=== PATIENT | male | born 1930 | race Caucasian/White ===

== ENCOUNTER 2016-09-27 16:24 | Emergency (ER) | payer MEDICARE ==
[2016-09-27] MEDS ORDERED: SODIUM CHLORIDE 0.9% 1,000 ML IV ONE (17:15)
[2016-09-27] MEDS ORDERED: ACETAMINOPHEN IV (For NPO) 1,000 MG in EMPTY BAG 1 BAG IVPB ONE (17:16)
[2016-09-27 17:44] LABS: Anisocytosis Slight; Appearance,Urine Clear (Clear); Basophils % (A) 0 %; Bilirubin,Urine Negative (Negative); CHCM 32.1; Eosinophils % (A) 0 %; Glucose,Urine (UA) Negative (Negative); HCT 40.4 % (39.0-53.0); HDW 2.72; HGB 12.3 gm/dL (13.0-17.5); Ketones,Urine Negative (Negative); Leukocyte Esterase,Urine Negative (Negative); Luc # (Auto) 0.02; Luc % (Auto) 0; Lymphocytes # (A) 0.4 k/uL (1.0-4.8); Lymphocytes % (A) 3 %; MCH 26.8 pg (25.0-35.0); MCHC 30.5 g/dL (31.0-37.0); MCV 87.7 fL (80.0-100.0); Mean Platelet Volume 7.1; Monocytes # (A) 0.3 k/uL (0-1.0); Monocytes % (A) 2 %; Neutrophils # (A) 10.7 k/uL (1.3-7.7); Neutrophils % (A) 94 %; Nitrite,Urine Negative (Negative); Protein,Urine Negative (Negative); RBC 4.61 m/uL (4.30-5.90); RDW 16.2 % (11.5-15.5); Specific Gravity,Urine 1.003 (1.001-1.035); UA Billing (MACRO vs. MICRO) CHEM; Urobilinogen,Urine <2.0 mg/dL (<2.0); WBC 11.4 k/uL (3.8-10.6); WBC (Perox) 11.84
[2016-09-27 17:53] LABS: ALT 34 U/L (21-72); AST 25 U/L (17-59); Alkaline Phosphatase 134 U/L (38-126); Anion Gap 13 mmol/L; Blood Urea Nitrogen 22 mg/dL (9-20); Calcium 9.6 mg/dL (8.4-10.2); Carbon Dioxide 27 mmol/L (22-30); Chloride 99 mmol/L (98-107); Glucose 127 mg/dL (74-99); Non-African American GFR(MDRD) >60 (>60 ml/min/1.73 sqM); Sodium 139 mmol/L (137-145); Total Bilirubin 0.5 mg/dL (0.2-1.3); Total Protein 7.5 g/dL (6.3-8.2)
[2016-09-27 17:55] LABS: Partial Thromboplastin Time 24.3 sec (22.0-30.0); Prothrombin Time 10.2 sec (9.0-12.0)
--- NOTE | 2016-09-27 18:11 | XR ---
EXAMINATION TYPE: XR chest 2V DATE OF EXAM: 09/27/2016 6:08 PM COMPARISON: 08/28/2016 HISTORY: Altered mental status TECHNIQUE: Frontal and lateral views of the chest are obtained. FINDINGS: There is slight blunting of costophrenic angles. There is coarsening of interstitial bibiana ngs. Heart size is normal. There are no hilar masses. There are chest leads. There is no gross heart failure. IMPRESSION: There is new small right pleural effusion compared to last exam. No gross heart failure. Pulmonary fibrotic changes. There is probably COPD.
--- NOTE | 2016-09-27 18:15 | CT ---
EXAMINATION TYPE: CT brain cspine wo con DATE OF EXAM: 09/27/2016 6:08 PM COMPARISON: 08/28/2016 HISTORY: Pt states of headaches and dizziness. Hx of [place] x2 weeks ago. CT DLP: 1304.7 mGycm Automated exposure control for dose reduction was used. TECHNIQUE: CT scan of the head and cervical spine are performed without contrast. FINDINGS: There is cerebral cortical atrophy. There is moderate patchy hypodensity in the periventr icular white matter. There is no mass effect nor midline shift. There is no evidence of intracranial hemorrhage. The calvarium is intact. The cervical vertebra have normal alignment. There is degenerative disc space narrowing from C4 to C7 with spurring of the endplates. There is hypertrophic mild facet arthropathy. There is no compressio n fracture. Skull base is intact. IMPRESSION: Cerebral atrophy and extensive chronic small vessel ischemia. Spondylotic changes in the mid and lowe r cervical spine. No fracture. The brain and cervical spine appear unchanged compared to old exam.
[2016-09-27 18:25] VITALS: RESP 18
[2016-09-27 18:26] LABS: Creatine Kinase MB 2.1 ng/mL (0.0-2.4); Troponin I 0.012 ng/mL (0.000-0.034)
--- NOTE | 2016-09-27 19:58 | ED ---
General Adult HPI - General Chief complaint: Altered Mental Status Stated complaint: headache/nausea/confusion Time Seen by Provider: 09/27/16 17:08 Source: patient, family Mode of arrival: wheelchair - History of Present Illness Initial comments: This 85-year-old white male presents with family with several complaints. He apparently is been having a headache as well as neck pain for the past 6 weeks. He had a workup in this regard in the past with the CAT scan and this showed some degenerative changes in his neck. He states that it is fairly severe. The states that he's been somewhat panicky throughout the day but he states that this is only after he takes his breathing treatment machine. She states that he seems confused at times but is not confused currently. He just had a stress test yesterday and is following up with cardiology on Friday. She states that he had problems swallowing at one point in time. They deny any urinary symptoms or cough or difficulty in breathing. No other complaints or modifying factors. - Related Data Home Medications Medication Instructions Recorded Confirmed Tamsulosin HCl [Flomax] 0.4 mg PO DAILY 04/05/16 09/27/16 Budesonide [Pulmicort] 0.5 mg INHALATION RT-BID PRN 09/27/16 09/27/16 HYDROcodone/APAP 7.5-325MG [[place] 1 tab PO Q4H PRN 09/27/16 09/27/16 7.5-325] Sulfamethox-Tmp 800-160Mg [Bactrim 1 tab PO Q12HR 09/27/16 09/27/16 DS 800-160 mg] predniSONE See Taper PO DAILY 09/27/16 09/27/16 Previous Rx's Medication Instructions Recorded Atorvastatin [Lipitor] 40 mg PO DAILY #90 tab 08/31/16 Clopidogrel [Plavix] 75 mg PO DAILY #90 tab 08/31/16 amLODIPine [Norvasc] 5 mg PO DAILY #90 tab 08/31/16 Allergies Allergy/AdvReac Type Severity Reaction Status Date / Time ciprofloxacin [From Cipro] Allergy Mild Hives Verified 09/27/16 18:12 ciprofloxacin HCl Allergy Mild Hives Verified 09/27/16 18:12 [From Cipro] acetic acid Allergy Rash/Hives Verified 09/27/16 18:12 [From [place] Vinegar and Water] egg Allergy Unknown Verified 09/27/16 18:12 tomato Allergy Rash/Hives Verified 09/27/16 18:12 methylprednisolone AdvReac Severe Abdominal Verified 09/27/16 18:12 [From Medrol] Pain Review of Systems ROS Statement: Those systems with pertinent positive or pertinent negative responses have been documented in the HPI. ROS Other: All systems not noted in ROS Statement are negative. Past Medical History Past Medical History: Coronary Artery Disease (CAD), COPD, CVA/TIA, Dementia, Eye Disorder, Hypertension, Myocardial Infarction ([place]), Pneumonia, Prostate Disorder Additional Past Medical History / Comment(s): Recent UTI-completed ABX, several TIAs, CVA- R leg affected alittle, BPH, glaucoma-one wet and one dry, pancreatitis, unsteady on his feet, allergies that cause his skin to itch- vinegar/tomatoes/dairy, very limited vision. Last Myocardial Infarction Date:: March 2014 History of Any Multi-Drug Resistant Organisms: None Reported Past Surgical History: Appendectomy, Cholecystectomy, Heart Catheterization With Stent Additional Past Surgical History / Comment(s): 03/2014 PCI with 1 stent, left carotid, cataract surgery, deviated septum sx, cataracts removed bilaterally with lens implants, colonoscopy with benign polypectomy, L eye injectionl Past Anesthesia/Blood Transfusion Reactions: No Reported Reaction Date of Last Stent Placement:: 03/2014 Past Psychological History: Anxiety Additional Psychological History / Comment(s): Pt resides with his spouse. He uses no assistive device. He has an unsteady gait and has had falls. He has very poor vision. His assists him with many things. Smoking Status: Former smoker Past Alcohol Use History: None Reported Additional Past Alcohol Use History / Comment(s): Pt states he started smoking at age 14 yrs and quit in 2012. He was mostly a pipe smoker and did smoke cigarettes the last few yrs that he smoked. Past Drug Use History: None Reported - Past Family History Mother Family Medical History: Congestive Heart Failure (CHF), Myocardial Infarction ( [place]) Additional Family Medical History / Comment(s): Mother at 94 yrs. Father Family Medical History: Myocardial Infarction ([place]) Additional Family Medical History / Comment(s): of [place] in his 60's General Exam - General Exam Comments Initial Comments: GENERAL: The patient is well nourished and well hydrated. VITAL SIGNS: Heart rate, blood pressure, respiratory rate reviewed as recorded in nurse's notes. EYES: Pupils are round and reactive. Extraocular movements are intact. No conjunctival / lid redness or swelling. ENT: No external evidence of injury, swelling, or ecchymosis. Airway is patent. Throat is clear. NECK: There is some slight tenderness in the bilateral paraspinal musculature. No swelling or evidence of injury. No subcutaneous emphysema. Trachea is midline. No thyroid mass. HEART: Regular rate and rhythm. Good peripheral pulses. LUNGS/CHEST: Breath sounds clear and equal bilaterally. No rales, rhonchi, or wheezes. No ecchymosis, subcutaneous emphysema, or tenderness. ABDOMEN: Abdomen soft without tenderness. No palpable masses or organomegaly. No peritoneal signs. No abdominal wall swelling or ecchymosis. EXTREMITIES: No extremity tenderness. Normal muscle tone and function. No thoracolumbar tenderness. There is minimal lower extremity pitting edema which is apparently chronic. NEUROLOGIC: Sensation is grossly intact. Cranial nerve exam reveals face is symmetrical, tongue is midline, speech is clear. SKIN: No abrasions or ecchymosis is noted. No induration or masses noted. PSYCHIATRIC: Alert and oriented. Appropriate behavior and judgment. Course Vital Signs 09/27/16 09/27/16 09/27/16 16:36 18:23 19:09 Temperature 100.1 F H Pulse Rate 82 80 82 Respiratory 20 18 18 Rate Blood Pressure 152/70 150/73 121/84 O2 Sat by Pulse 91 L 93 L 94 L Oximetry Medical Decision Making - Medical Decision Making The patient was seen and examined. All diagnostics were reviewed. The EKG shows sinus tachycardia at a rate of [address]-T wave changes noted. An IV was started. He received some Ofirmev with significant improvement of his pain. A computed tomography scan of the brain is negative. The computed tomography scan of the neck shows degenerative/arthritic changes per radiology with no acute processes. The chest x-ray does not show any acute process with possible slight right pleural effusion per radiology. Laboratory and urinalysis were fairly unremarkable. States that he is feeling much better on recheck and would like to be discharged. He has an upcoming appointment with neurology in regards to his headache. Is felt as though that he is stable for discharge at this time and leaves in no significant distress. - Lab Data Result diagrams: 09/27/16 17:10 09/27/16 17:10 Lab Results 09/27/16 09/27/16 09/27/16 Range/Units 17:10 17:10 17:10 WBC 11.4 H (3.8-10.6) k/uL RBC 4.61 (4.30-5.90) m/uL Hgb 12.3 L (13.0-17.5) gm/dL Hct 40.4 (39.0-53.0) % MCV 87.7 (80.0-100.0) fL MCH 26.8 (25.0-35.0) pg MCHC 30.5 L (31.0-37.0) g/dL RDW 16.2 H (11.5-15.5) % Plt Count 331 (150-450) k/uL Neutrophils % 94 % Lymphocytes % 3 % Monocytes % 2 % Eosinophils % 0 % Basophils % 0 % Neutrophils # 10.7 H (1.3-7.7) k/uL Lymphocytes # 0.4 L (1.0-4.8) k/uL Monocytes # 0.3 (0-1.0) k/uL Eosinophils # 0.0 (0-0.7) k/uL Basophils # 0.0 (0-0.2) k/uL Anisocytosis Slight PT (9.0-12.0) sec INR (<1.1) APTT (22.0-30.0) sec Sodium 139 (137-145) mmol/L Potassium 5.0 (3.5-5.1) mmol/L Chloride 99 (98-107) mmol/L Carbon Dioxide 27 (22-30) mmol/L Anion Gap 13 mmol/L BUN 22 H (9-20) mg/dL Creatinine 1.09 (0.66-1.25) mg/dL Est GFR (MDRD) Af Amer >60 (>60 ml/min/1.73 sqM) Est GFR (MDRD) Non-Af >60 (>60 ml/min/1.73 sqM) Glucose 127 H (74-99) mg/dL Calcium 9.6 (8.4-10.2) mg/dL Total Bilirubin 0.5 (0.2-1.3) mg/dL AST 25 (17-59) U/L ALT 34 (21-72) U/L Alkaline Phosphatase 134 H (38-126) U/L Total Creatine Kinase 39 L (55-170) U/L CK-MB (CK-2) 2.1 (0.0-2.4) ng/mL CK-MB (CK-2) Rel Index 5.4 Troponin I 0.012 (0.000-0.034) ng/mL Total Protein 7.5 (6.3-8.2) g/dL Albumin 4.2 (3.5-5.0) g/dL Urine Color Urine Appearance (Clear) Urine pH (5.0-8.0) Ur Specific [place] (1.001-1.035) Urine Protein (Negative) Urine Glucose (UA) (Negative) Urine Ketones (Negative) Urine Blood (Negative) Urine Nitrate (Negative) Urine Bilirubin (Negative) Urine Urobilinogen (<2.0) mg/dL Ur Leukocyte Esterase (Negative) 09/27/16 09/27/16 Range/Units 17:10 17:10 WBC (3.8-10.6) k/uL RBC (4.30-5.90) m/uL Hgb (13.0-17.5) gm/dL Hct (39.0-53.0) % MCV (80.0-100.0) fL MCH (25.0-35.0) pg MCHC (31.0-37.0) g/dL RDW (11.5-15.5) % Plt Count (150-450) k/uL Neutrophils % % Lymphocytes % % Monocytes % % Eosinophils % % Basophils % % Neutrophils # (1.3-7.7) k/uL Lymphocytes # (1.0-4.8) k/uL Monocytes # (0-1.0) k/uL Eosinophils # (0-0.7) k/uL Basophils # (0-0.2) k/uL Anisocytosis PT 10.2 (9.0-12.0) sec INR 1.0 (<1.1) APTT 24.3 (22.0-30.0) sec Sodium (137-145) mmol/L Potassium (3.5-5.1) mmol/L Chloride (98-107) mmol/L Carbon Dioxide (22-30) mmol/L Anion Gap mmol/L BUN (9-20) mg/dL Creatinine (0.66-1.25) mg/dL Est GFR (MDRD) Af Amer (>60 ml/min/1.73 sqM) Est GFR (MDRD) Non-Af (>60 ml/min/1.73 sqM) Glucose (74-99) mg/dL Calcium (8.4-10.2) mg/dL Total Bilirubin (0.2-1.3) mg/dL AST (17-59) U/L ALT (21-72) U/L Alkaline Phosphatase (38-126) U/L Total Creatine Kinase (55-170) U/L CK-MB (CK-2) (0.0-2.4) ng/mL CK-MB (CK-2) Rel Index Troponin I (0.000-0.034) ng/mL Total Protein (6.3-8.2) g/dL Albumin (3.5-5.0) g/dL Urine Color Colorless Urine Appearance Clear (Clear) Urine pH 6.0 (5.0-8.0) Ur Specific [place] 1.003 (1.001-1.035) Urine Protein Negative (Negative) Urine Glucose (UA) Negative (Negative) Urine Ketones Negative (Negative) Urine Blood Negative (Negative) Urine Nitrate Negative (Negative) Urine Bilirubin Negative (Negative) Urine Urobilinogen <2.0 (<2.0) mg/dL Ur Leukocyte Esterase Negative (Negative) Disposition Clinical Impression: Headache, Neck pain, Degenerative arthritis Disposition: HOME SELF-CARE Condition: Good Instructions: Acute Headache (ED), Neck Pain (ED), Arthritis (ED) Additional Instructions: Please continue with home [place] as needed for pain. Referrals: Dante Fraser DO [Primary Care Provider] - 1-2 days Time of Disposition: 20:01
[2016-09-27 20:33] VITALS: BP 156/68; PULSE 80; TEMP 97.6
== END 2016-09-27 20:16 | disposition home or self-care (01) ==
LOC: EC 16:24
DX: R51 Headache (principal); M50.320 Other cervical disc degeneration, mid-cervical region, unspecified level; J90 Pleural effusion, not elsewhere classified; G31.9 Degenerative disease of nervous system, unspecified; I10 Essential (primary) hypertension; F03.90 Unspecified dementia, unspecified severity, without behavioral disturbance, psychotic disturbance, mood disturbance, and anxiety; J44.9 Chronic obstructive pulmonary disease, unspecified; I25.10 Atherosclerotic heart disease of native coronary artery without angina pectoris; N40.0 Benign prostatic hyperplasia without lower urinary tract symptoms; I25.2 Old myocardial infarction; Z86.73 Personal history of transient ischemic attack (TIA), and cerebral infarction without residual deficits; Z95.5 Presence of coronary angioplasty implant and graft; Z87.891 Personal history of nicotine dependence; Z79.02 Long term (current) use of antithrombotics/antiplatelets; Z79.899 Other long term (current) drug therapy; Z88.1 Allergy status to other antibiotic agents; Z88.8 Allergy status to other drugs, medicaments and biological substances
CPT/HCPCS: 99284; 96361; 36415; 93005; 80053; 82550; 82553; 84484; 85025; 85610; 85730; 81003; 87040; 87086; 71020; 72125; 70450; 96374; J0131

== ENCOUNTER 2016-10-16 22:37 | Inpatient (IN) | payer MEDICARE ==
[2016-10-16] MEDS ORDERED: SODIUM CHLORIDE 0.9% 1,000 ML IV STA (22:45)
[2016-10-16] MEDS ORDERED: IPRATROPIUM-ALBUTEROL 3 ML NEB INHALATION STA (22:45)
--- NOTE | 2016-10-16 22:49 | ED ---
SOB HPI - General Stated Complaint: LORENA Time Seen by Provider: 10/16/16 22:37 Source: patient, EMS, RN notes reviewed Mode of arrival: EMS - History of Present Illness Initial Comments: This is a 5-year-old male was brought in by EMS because of shortness of breath is been going on off last day or so. He has a cough with yellow phlegm also some green the extent felt febrile no chest pain exertional dyspnea. He was recently diagnosed with [place] on the of this past August. No chest pain at this time. He was given a DuoNeb as well as IV steroids in route. MD Complaint: shortness of breath, cough - Related Data Home Medications Medication Instructions Recorded Confirmed Tamsulosin HCl [Flomax] 0.4 mg PO DAILY 04/05/16 10/16/16 Budesonide [Pulmicort] 0.5 mg INHALATION RT-BID PRN 09/27/16 10/16/16 HYDROcodone/APAP 7.5-325MG [[place] 1 tab PO Q4H PRN 09/27/16 10/16/16 7.5-325] Previous Rx's Medication Instructions Recorded Atorvastatin [Lipitor] 40 mg PO DAILY #90 tab 08/31/16 Clopidogrel [Plavix] 75 mg PO DAILY #90 tab 08/31/16 amLODIPine [Norvasc] 5 mg PO DAILY #90 tab 08/31/16 Allergies Allergy/AdvReac Type Severity Reaction Status Date / Time ciprofloxacin [From Cipro] Allergy Mild Hives Verified 10/16/16 23:13 ciprofloxacin HCl Allergy Mild Hives Verified 10/16/16 23:13 [From Cipro] acetic acid Allergy Rash/Hives Verified 09/27/16 18:12 [From [place] Vinegar and Water] egg Allergy Unknown Verified 09/27/16 18:12 tomato Allergy Rash/Hives Verified 09/27/16 18:12 methylprednisolone AdvReac Severe Abdominal Verified 10/16/16 23:13 [From Medrol] Pain Review of Systems ROS Statement: Those systems with pertinent positive or pertinent negative responses have been documented in the HPI. ROS Other: All systems not noted in ROS Statement are negative. Past Medical History Past Medical History: Coronary Artery Disease (CAD), COPD, CVA/TIA, Dementia, Eye Disorder, Hypertension, Myocardial Infarction ([place]), Pneumonia, Prostate Disorder Additional Past Medical History / Comment(s): Recent UTI-completed ABX, several TIAs, CVA- R leg affected alittle, BPH, glaucoma-one wet and one dry, pancreatitis, unsteady on his feet, allergies that cause his skin to itch- vinegar/tomatoes/dairy, very limited vision. Last Myocardial Infarction Date:: March 2014 History of Any Multi-Drug Resistant Organisms: None Reported Past Surgical History: Appendectomy, Cholecystectomy, Heart Catheterization With Stent Additional Past Surgical History / Comment(s): 03/2014 PCI with 1 stent, left carotid, cataract surgery, deviated septum sx, cataracts removed bilaterally with lens implants, colonoscopy with benign polypectomy, L eye injectionl Past Anesthesia/Blood Transfusion Reactions: No Reported Reaction Date of Last Stent Placement:: 03/2014 Past Psychological History: Anxiety Additional Psychological History / Comment(s): Pt resides with his spouse. He uses no assistive device. He has an unsteady gait and has had falls. He has very poor vision. His assists him with many things. Smoking Status: Former smoker Past Alcohol Use History: None Reported Additional Past Alcohol Use History / Comment(s): Pt states he started smoking at age 14 yrs and quit in 2012. He was mostly a pipe smoker and did smoke cigarettes the last few yrs that he smoked. Past Drug Use History: None Reported - Past Family History Mother Family Medical History: Congestive Heart Failure (CHF), Myocardial Infarction ( [place]) Additional Family Medical History / Comment(s): Mother at 94 yrs. Father Family Medical History: Myocardial Infarction ([place]) Additional Family Medical History / Comment(s): of [place] in his 60's General Exam - General Exam Comments Initial Comments: Is a well-developed well-nourished awake alert anxious appearing male he is demonstrating dyspnea General appearance: alert, in no apparent distress Head exam: Present: atraumatic, normocephalic, normal inspection Eye exam: Present: normal appearance, PERRL, EOMI. Absent: scleral icterus, conjunctival injection, periorbital swelling ENT exam: Present: mucous membranes dry Neck exam: Present: normal inspection. Absent: tenderness, meningismus, lymphadenopathy Respiratory exam: Present: wheezes, accessory muscle use, decreased breath sounds, prolonged expiratory. Absent: respiratory distress, rales, rhonchi, stridor Cardiovascular Exam: Present: normal rhythm, tachycardia, normal heart sounds. Absent: systolic murmur, diastolic murmur, rubs, gallop, clicks GI/Abdominal exam: Present: soft, normal bowel sounds. Absent: distended, tenderness, guarding, rebound, rigid Extremities exam: Present: normal inspection, full ROM, normal capillary refill. Absent: tenderness, pedal edema, joint swelling, calf tenderness Back exam: Present: normal inspection Neurological exam: Present: alert, oriented X3, CN II-XII intact Psychiatric exam: Present: normal affect, normal mood Skin exam: Present: warm, dry, intact, normal color. Absent: rash Course Vital Signs 10/16/16 10/16/16 10/16/16 22:40 23:08 23:20 Temperature 100.7 F H Pulse Rate 121 H 99 101 H Respiratory 22 Rate Blood Pressure 201/84 O2 Sat by Pulse 90 L Oximetry - Reevaluation(s) Reevaluation #1: 10/17/16 00:00 Patient is feeling somewhat better did a long discussion with patient family patient will be admitted he is got bilateral pneumonia. Medical Decision Making - Lab Data Result diagrams: 10/16/16 20:50 10/16/16 20:50 Lab Results 10/16/16 10/16/16 10/16/16 Range/Units 20:50 20:50 20:50 WBC 22.3 H (3.8-10.6) k/uL RBC 4.69 (4.30-5.90) m/uL Hgb 12.4 L (13.0-17.5) gm/dL Hct 42.0 (39.0-53.0) % MCV 89.7 (80.0-100.0) fL MCH 26.6 (25.0-35.0) pg MCHC 29.6 L (31.0-37.0) g/dL RDW 16.1 H (11.5-15.5) % Plt Count 416 (150-450) k/uL Neutrophils % 77 % Lymphocytes % 14 % Monocytes % 6 % Eosinophils % 1 % Basophils % 1 % Neutrophils # 17.1 H (1.3-7.7) k/uL Lymphocytes # 3.1 (1.0-4.8) k/uL Monocytes # 1.4 H (0-1.0) k/uL Eosinophils # 0.2 (0-0.7) k/uL Basophils # 0.1 (0-0.2) k/uL Hypochromasia Slight Anisocytosis Slight PT (9.0-12.0) sec INR (<1.1) APTT (22.0-30.0) sec Sodium 142 (137-145) mmol/L Potassium 4.2 (3.5-5.1) mmol/L Chloride 103 (98-107) mmol/L Carbon Dioxide 25 (22-30) mmol/L Anion Gap 14 mmol/L BUN 22 H (9-20) mg/dL Creatinine 1.00 (0.66-1.25) mg/dL Est GFR (MDRD) Af Amer >60 (>60 ml/min/1.73 sqM) Est GFR (MDRD) Non-Af >60 (>60 ml/min/1.73 sqM) Glucose 107 H (74-99) mg/dL Plasma Lactic Acid Alonso (0.7-2.0) mmol/L Calcium 8.8 (8.4-10.2) mg/dL Magnesium 1.8 (1.6-2.3) mg/dL Total Bilirubin 0.6 (0.2-1.3) mg/dL AST 19 (17-59) U/L ALT 26 (21-72) U/L Alkaline Phosphatase 112 (38-126) U/L Total Creatine Kinase 30 L (55-170) U/L CK-MB (CK-2) 1.5 (0.0-2.4) ng/mL CK-MB (CK-2) Rel Index 5.0 Troponin I <0.012 (0.000-0.034) ng/mL NT-Pro-B Natriuret Pep pg/mL Total Protein 6.9 (6.3-8.2) g/dL Albumin 3.6 (3.5-5.0) g/dL 10/16/16 10/16/16 10/16/16 Range/Units 20:50 20:50 20:50 WBC (3.8-10.6) k/uL RBC (4.30-5.90) m/uL Hgb (13.0-17.5) gm/dL Hct (39.0-53.0) % MCV (80.0-100.0) fL MCH (25.0-35.0) pg MCHC (31.0-37.0) g/dL RDW (11.5-15.5) % Plt Count (150-450) k/uL Neutrophils % % Lymphocytes % % Monocytes % % Eosinophils % % Basophils % % Neutrophils # (1.3-7.7) k/uL Lymphocytes # (1.0-4.8) k/uL Monocytes # (0-1.0) k/uL Eosinophils # (0-0.7) k/uL Basophils # (0-0.2) k/uL Hypochromasia Anisocytosis PT 10.8 (9.0-12.0) sec INR 1.1 (<1.1) APTT 24.5 (22.0-30.0) sec Sodium (137-145) mmol/L Potassium (3.5-5.1) mmol/L Chloride (98-107) mmol/L Carbon Dioxide (22-30) mmol/L Anion Gap mmol/L BUN (9-20) mg/dL Creatinine (0.66-1.25) mg/dL Est GFR (MDRD) Af Amer (>60 ml/min/1.73 sqM) Est GFR (MDRD) Non-Af (>60 ml/min/1.73 sqM) Glucose (74-99) mg/dL Plasma Lactic Acid Alonso 2.3 H* (0.7-2.0) mmol/L Calcium (8.4-10.2) mg/dL Magnesium (1.6-2.3) mg/dL Total Bilirubin (0.2-1.3) mg/dL AST (17-59) U/L ALT (21-72) U/L Alkaline Phosphatase (38-126) U/L Total Creatine Kinase (55-170) U/L CK-MB (CK-2) (0.0-2.4) ng/mL CK-MB (CK-2) Rel Index Troponin I (0.000-0.034) ng/mL NT-Pro-B Natriuret Pep 557 pg/mL Total Protein (6.3-8.2) g/dL Albumin (3.5-5.0) g/dL - EKG Data -: EKG Interpreted by Wi EKG shows normal: sinus rhythm (Sinus tachycardia rate 117 NJ interval 196 QRS duration 76 daily since QTC at 290/[address] configuration occasional PVCs.) - Radiology Data Radiology results: report reviewed (Bilateral infiltrates are noted.), image reviewed Critical Care Time Critical Care Time: Yes Critical Care Time: 38 minutes of critical care time which includes the initial monitoring of the EMS run and discussed with paramedics. History physical lab and x-ray evaluation the patient reevaluation the patient to responsive therapy. Several reevaluation of the patient's progress with responsive therapy discussed with the family and patient regarding the findings admission orders discussion with the disposition and documentation the above. Disposition Clinical Impression: Bilateral pneumonia, Adult respiratory distress syndrome, Acute exacerbation of chronic obstructive airways disease, Febrile illness, acute, Dehydration, Elevated lactic acid level Disposition: ADMITTED IP TO THIS HOSP Condition: Stable Referrals: Dante Fraser DO [Primary Care Provider] - 1-2 days
[2016-10-16 23:03] LABS: Anisocytosis Slight; Basophils # (A) 0.1 k/uL (0-0.2); Basophils % (A) 1 %; CH 27.9; CHCM 31.3; Eosinophils # (A) 0.2 k/uL (0-0.7); Eosinophils % (A) 1 %; HDW 2.82; HGB 12.4 gm/dL (13.0-17.5); Hypochromasia Slight; Luc # (Auto) 0.42; Luc % (Auto) 2; Lymphocytes # (A) 3.1 k/uL (1.0-4.8); Lymphocytes % (A) 14 %; MCH 26.6 pg (25.0-35.0); MCHC 29.6 g/dL (31.0-37.0); MCV 89.7 fL (80.0-100.0); Mean Platelet Volume 7.2; Monocytes # (A) 1.4 k/uL (0-1.0); Monocytes % (A) 6 %; Neutrophils # (A) 17.1 k/uL (1.3-7.7); Neutrophils % (A) 77 %; RBC 4.69 m/uL (4.30-5.90); RDW 16.1 % (11.5-15.5); WBC 22.3 k/uL (3.8-10.6); WBC (Perox) 22.62
[2016-10-16 23:13] LABS: ALT 26 U/L (21-72); AST 19 U/L (17-59); Alkaline Phosphatase 112 U/L (38-126); Anion Gap 14 mmol/L; Blood Urea Nitrogen 22 mg/dL (9-20); Calcium 8.8 mg/dL (8.4-10.2); Carbon Dioxide 25 mmol/L (22-30); Chloride 103 mmol/L (98-107); Glucose 107 mg/dL (74-99); INR 1.1 (<1.1); Magnesium 1.8 mg/dL (1.6-2.3); Non-African American GFR(MDRD) >60 (>60 ml/min/1.73 sqM); Partial Thromboplastin Time 24.5 sec (22.0-30.0); Potassium 4.2 mmol/L (3.5-5.1); Prothrombin Time 10.8 sec (9.0-12.0); Sodium 142 mmol/L (137-145); Total Bilirubin 0.6 mg/dL (0.2-1.3); Total Protein 6.9 g/dL (6.3-8.2)
[2016-10-16 23:22] LABS: Creatine Kinase 30 U/L (55-170)
[2016-10-16 23:35] LABS: Creatine Kinase MB 1.5 ng/mL (0.0-2.4); Troponin I <0.012 ng/mL (0.000-0.034)
[2016-10-16] MEDS ORDERED: HYDROcodone/APAP 7.5-325MG 1 EACH TAB PO ONE (23:42)
--- NOTE | 2016-10-16 23:51 | XR ---
EXAMINATION TYPE: XR chest 2V DATE OF EXAM: 10/16/2016 11:25 PM COMPARISON: 09/27/2016 HISTORY: Shortness of breath history of pneumonia stents COPD CAD hypertension TECHNIQUE: Frontal and lateral views of the chest are obtained. FINDINGS: There is suggestion of mild right-sided pleural effusion and right basilar lung infiltrates . There is possibility of mild CHF. There is mild cardiomegaly and atherosclerotic calcification in t he aortic arch. [id number] degenerative changes are present in the shoulder joints. IMPRESSION: 1. Mild right-sided pleural effusion and right basilar lung infiltrates. 2. There is possibility of mild CHF.
[2016-10-16] MEDS ORDERED: SODIUM CHLORIDE 0.9% 500 ML IV STA (23:59)
[2016-10-17] MEDS ORDERED: PNEUMONIA PROTOCOL UTILIZED 1 EACH MISC PO PRN (00:09)
[2016-10-17] MEDS ORDERED: AZITHROMYCIN 500 MG in SODIUM CHLORIDE 0.9% 250 ML IVPB STA (00:09)
[2016-10-17] MEDS: SODIUM CHLORIDE 0.9% 1,000 ML IV SCH ×2 (02:00→17:00)
[2016-10-17] MEDS: HYDROcodone/APAP 7.5-325MG 1 EACH TAB PO PRN ×6 (03:31→23:01)
[2016-10-17] MEDS: IPRATROPIUM-ALBUTEROL 3 ML NEB INHALATION SCH ×6 (04:28→23:12)
[2016-10-17] MEDS: methylPREDNISolone SOD SUCCI 125 MG/2 ML VIAL IV SCH ×3 (06:09→18:27)
[2016-10-17 07:36] LABS: Glucose,Whole Blood 167 mg/dL (75-99)
[2016-10-17] MEDS: INSULIN LISPRO (humaLOG) 300 UNIT/3 ML VIAL SQ SCH ×4 (08:19→21:31)
[2016-10-17] MEDS: BUDESONIDE 0.5 MG/2 ML NEBU INHALATION PRN ×2 (09:01→19:14)
[2016-10-17] MEDS: CLOPIDOGREL 75 MG TAB PO SCH (09:49)
[2016-10-17] MEDS: amLODIPine 5 MG TAB PO SCH (09:49)
[2016-10-17] MEDS: ATORVASTATIN 40 MG TAB PO SCH (09:49)
[2016-10-17] MEDS: TAMSULOSIN 0.4 MG CAP.ER.24H PO SCH (09:49)
[2016-10-17 11:46] LABS: Glucose,Whole Blood 143 mg/dL (75-99)
[2016-10-17 12:30] LABS: Hemoglobin A1C 6.1 % (4.2-6.1)
--- NOTE | 2016-10-17 13:39 | P.CRDCN ---
History of Present Illness Consult date: 10/17/16 History of present illness: This is a 85-year-old gentleman with history of coronary artery disease with history of previous angioplasty of the RCA done in 1970s and of the LAD in 2012. Patient also has history of hypertension and lipidemia and previous left carotid endarterectomy. Patient was in this hospital in August with chest pains and positive troponins. Patient had a cardiac catheterization and was found to have moderate disease in the LAD and critical lesion in the distal circumflex and total occlusion of the RCA. Patient had stent placement of the circumflex. Patient went home and apparently gradually getting his strength back. However over the last week or so patient has been getting fever cough and shortness of breath. Patient came to the emergency room. His chest x-ray showed bilateral pneumonia. His white count is 22,000. He does have chronic edema of the leg seemed to be probably dependent edema. His proBNP is within normal limits. First set of troponin is normal. Review of Systems As per the chart Past Medical History Past Medical History: Coronary Artery Disease (CAD), Heart Failure, COPD, CVA/ TIA, Dementia, Eye Disorder, Hypertension, Myocardial Infarction ([place]), Pneumonia , Prostate Disorder Additional Past Medical History / Comment(s): Recent UTI-completed ABX, several TIAs, CVA- R leg affected alittle, BPH, glaucoma-one wet and one dry, pancreatitis, unsteady on his feet, allergies that cause his skin to itch- vinegar/tomatoes/dairy, very limited vision. Last Myocardial Infarction Date:: March 2014 History of Any Multi-Drug Resistant Organisms: None Reported Past Surgical History: Appendectomy, Cholecystectomy, Heart Catheterization With Stent Additional Past Surgical History / Comment(s): 03/2014 PCI with 1 stent, left carotid, cataract surgery, deviated septum sx, cataracts removed bilaterally with lens implants, colonoscopy with benign polypectomy, L eye injection Past Anesthesia/Blood Transfusion Reactions: No Reported Reaction Date of Last Stent Placement:: 03/2014 Past Psychological History: Anxiety Additional Psychological History / Comment(s): Pt resides with his spouse. Pt uses walker . He has an unsteady gait and has had falls. He has very poor vision. His assists him with many things. Smoking Status: Never smoker Past Alcohol Use History: None Reported Additional Past Alcohol Use History / Comment(s): Pt states he started smoking at age 14 yrs and quit in 2009. He was mostly a pipe smoker and did smoke cigarettes the last few yrs that he smoked. Past Drug Use History: None Reported - Past Family History Mother Family Medical History: Congestive Heart Failure (CHF), Myocardial Infarction ( [place]) Additional Family Medical History / Comment(s): Mother at 94 yrs. Father Family Medical History: Myocardial Infarction ([place]) Additional Family Medical History / Comment(s): of [place] in his 60's Medications and Allergies Home Medications Medication Instructions Recorded Confirmed Type Tamsulosin HCl [Flomax] 0.4 mg PO DAILY 04/05/16 10/16/16 History Budesonide [Pulmicort] 0.5 mg INHALATION RT-BID PRN 09/27/16 10/16/16 History HYDROcodone/APAP 7.5-325MG [[place] 1 tab PO Q4H PRN 09/27/16 10/16/16 History 7.5-325] Allergies Allergy/AdvReac Type Severity Reaction Status Date / Time ciprofloxacin [From Cipro] Allergy Mild Hives Verified 10/16/16 23:13 ciprofloxacin HCl Allergy Mild Hives Verified 10/16/16 23:13 [From Cipro] acetic acid Allergy Rash/Hives Verified 09/27/16 18:12 [From [place] Vinegar and Water] egg Allergy Unknown Verified 09/27/16 18:12 tomato Allergy Rash/Hives Verified 09/27/16 18:12 methylprednisolone AdvReac Severe Abdominal Verified 10/16/16 23:13 [From Medrol] Pain Physical Exam Vitals: Vital Signs Temp Pulse Pulse Resp BP BP Pulse Ox 10/17/16 12:35 76 10/17/16 12:25 76 10/17/16 09:18 76 10/17/16 09:01 72 10/17/16 08:00 88 16 10/17/16 07:00 97.8 F 88 16 124/62 95 10/17/16 04:43 80 10/17/16 04:28 72 10/17/16 04:00 91 18 10/17/16 02:01 99.3 F 87 18 140/68 97 10/17/16 01:43 98.3 F 91 18 130/68 92 L 10/17/16 01:01 98.9 F 95 18 143/67 92 L Intake and Output 10/16/16 10/17/16 10/17/16 22:59 06:59 14:59 Intake Total 300 118 Output Total 150 Balance 300 -32 Intake: Intake, IV Titration 300 Amount cefTRIAXone 1,000 mg In 300 Sodium Chloride 0.9% 50 ml @ 100 mls/hr IVPB Q24H [facility] Rx#:[id number] Oral 118 Output: Urine 150 Other: Voiding Method Urinal Urinal Weight 68.039 kg GENERAL EXAM: Patient is alert and appears to be short of breath HEENT: Normocephalic. Normal reaction of pupils, equal size, normal range of extraocular motion. No erythema or exudates in the throat. NECK: No masses, no nuchal rigidity. CHEST: No chest wall deformity. LUNGS: Show expiratory rhonchi and wheezing. HEART: S1 and S2 normal with no audible mumurs or gallops. Regular rhythm, femorals equal on both sides.. ABDOMEN: No hepatosplenomegaly, normal bowel sounds, no guarding or rigidity. SKIN: No rashes CENTRAL NERVOUS SYSTEM: No focal deficits. EXTREMITIES: No cyanosis, clubbing or edema. Results 10/16/16 20:50 10/16/16 20:50 Current Medications Generic Name Dose Route Start Last Admin Trade Name Freq PRN Reason Stop Dose Admin Acetaminophen/Hydrocodone Bitart 1 each 10/17/16 00:11 10/17/16 09:49 [place] 7.5-325 PO 1 each Q4H PRN Administration Pain Albuterol/Ipratropium 3 ml 10/17/16 04:00 10/17/16 12:28 Duoneb 0.5 Mg-3 Mg/3 Ml Soln INHALATION 3 ml RT-Q4H [facility] Administration Amlodipine Besylate 5 mg 10/17/16 09:00 10/17/16 09:49 Norvasc PO 5 mg DAILY [facility] Administration Atorvastatin Calcium 40 mg 10/17/16 09:00 10/17/16 09:49 Lipitor PO 40 mg DAILY [facility] Administration Azithromycin 500 mg 10/18/16 09:00 Zithromax PO DAILY [facility] Budesonide 0.5 mg 10/17/16 00:11 10/17/16 09:01 Pulmicort INHALATION 0.5 mg RT-BID PRN Administration Shortness Of Breath Clopidogrel Bisulfate 75 mg 10/17/16 09:00 10/17/16 09:49 Plavix PO 75 mg DAILY [facility] Administration Sodium Chloride 1,000 mls @ 80 mls/hr 10/17/16 00:15 10/17/16 02:00 Saline 0.9% IV 80 mls/hr .[id number] [facility] Administration Ceftriaxone Sodium 1,000 mg/ 50 mls @ 100 mls/hr 10/17/16 23:30 Sodium Chloride IVPB Q24H [facility] Insulin Human Lispro 0 unit 10/17/16 07:30 10/17/16 13:06 Humalog SQ 2 unit ACHS [facility] Administration Protocol Methylprednisolone Sodium Succinate 60 mg 10/17/16 06:00 10/17/16 11:17 Solu-Medrol IV 60 mg Q6HR [facility] Administration Miscellaneous Information 1 each 10/17/16 00:09 Pneumonia Protocol Utilized PO ONCE PRN Per Protocol Tamsulosin HCl 0.4 mg 10/17/16 09:00 10/17/16 09:49 Flomax PO 0.4 mg DAILY [facility] Administration Intake and Output 10/16/16 10/17/16 10/17/16 22:59 06:59 14:59 Intake Total 300 118 Output Total 150 Balance 300 -32 Intake: Intake, IV Titration 300 Amount cefTRIAXone 1,000 mg In 300 Sodium Chloride 0.9% 50 ml @ 100 mls/hr IVPB Q24H [facility] Rx#:[id number] Oral 118 Output: Urine 150 Other: Voiding Method Urinal Urinal Weight 68.039 kg EKG Interpretations (text) Showed sinus tachycardia Assessment and Plan (1) CAD (coronary artery disease) Status: Acute (2) Acute exacerbation of chronic obstructive airways disease Status: Acute (3) Bilateral pneumonia Status: Acute (4) Dehydration Status: Acute (5) Elevated lactic acid level Status: Acute Plan: This patient is primarily admitted with pneumonia. His BNP level is within normal limits. His EKG showed sinus tachycardia. Patient does have history of coronary artery disease but is not having any chest pain. His echocardiogram from last admission showed good LV function. The chronic leg edema could be related to venous stasis. I would recommend a pulmonary consultation on continuous antibiotics and further recommendations will depend upon the clinical course
--- NOTE | 2016-10-17 14:22 | P.HPIM ---
History of Present Illness H&P Date: 10/17/16 Chief Complaint: Shortness of breath Patient is an 85-year-old male, patient of Dr. Dante Fraser in the outpatient setting with medical history significant for coronary artery disease , COPD, TIAs, CVA, early onset dementia, bilateral macular degeneration, hypertension, myocardial infarction with stent placements, pneumonia, BPH, hyperlipidemia, and gait dysfunction with history of falls. Patient was recently hospitalized in August when he presented with right cervical and right temporal pain suspect secondary to cervical strain and degenerative disc disease and non-Q-wave ID. Patient underwent cardiac catheterization and was found to have moderate disease in the LAD and critical lesion in the distal circumflex and total occlusion of the RCA with stent placement of the circumflex. Patient was discharged home in stable condition. On this admission , patient presented to the emergency department with complaints of shortness of breath and cough. Chest x-ray with evidence of right basilar lung infiltrates; mild right-sided pleural effusion, and possibility of mild CHF. Patient did have a fever of 100.7 in the emergency department with heart rate of 121, oxygenating 90% on room air. Blood pressure on admission 201/84. Admission labs with evidence of leukocytosis, dehydration, and elevated plasma lactic acid venous. BNP level within normal limit. Patient was started on antibiotics according to pneumonia protocol, systemic steroids, and nebulized updraft treatments. Patient was admitted to the surgical unit with consult requested for pulmonology service. Upon examination, patient complains of chronic posterior neck pain radiating up into his head. Patient states he recently received steroid injections by Dr. Epstein with minimal relief. Patient states he's scheduled for more injections in about a week. Patient complains of productive cough. Patient complains of weakness and states his has to support him with ambulation at home. Patient denies chills, fevers, nausea, chest pain, or abdominal pain. Patient reports bilateral leg swelling for about a month. Patient reports decreased urine flow, denies dysuria or hematuria. Patient reports occasional constipation. Denies new skin lesions or rash. Patient currently is afebrile. Blood pressure 124/62. Oxygen saturation 95% on 3 L nasal cannula. Past Medical History Past Medical History: Coronary Artery Disease (CAD), Heart Failure, COPD, CVA/ TIA, Dementia, Eye Disorder, Hypertension, Myocardial Infarction ([place]), Pneumonia , Prostate Disorder Additional Past Medical History / Comment(s): Recent UTI-completed ABX, several TIAs, CVA- R leg affected alittle, BPH, glaucoma-one wet and one dry, pancreatitis, unsteady on his feet, allergies that cause his skin to itch- vinegar/tomatoes/dairy, very limited vision. Last Myocardial Infarction Date:: August 2016 History of Any Multi-Drug Resistant Organisms: None Reported Past Surgical History: Appendectomy, Cholecystectomy, Heart Catheterization With Stent Additional Past Surgical History / Comment(s): 03/2014 PCI with 1 stent, August 2016 stent to circumflex, left carotid, cataract surgery, deviated septum sx, cataracts removed bilaterally with lens implants, colonoscopy with benign polypectomy, L eye injection Past Anesthesia/Blood Transfusion Reactions: No Reported Reaction Date of Last Stent Placement:: 03/2014 Past Psychological History: Anxiety Additional Psychological History / Comment(s): Pt resides with his spouse. Pt uses walker . He has an unsteady gait and has had falls. He has very poor vision. His assists him with many things. Smoking Status: Never smoker Past Alcohol Use History: None Reported Additional Past Alcohol Use History / Comment(s): Pt states he started smoking at age 14 yrs and quit in 2009. He was mostly a pipe smoker and did smoke cigarettes the last few yrs that he smoked. Past Drug Use History: None Reported - Past Family History Mother Family Medical History: Congestive Heart Failure (CHF), Myocardial Infarction ( [place]) Additional Family Medical History / Comment(s): Mother at 94 yrs. Father Family Medical History: Myocardial Infarction ([place]) Additional Family Medical History / Comment(s): of [place] in his 60's Medications and Allergies Home Medications Medication Instructions Recorded Confirmed Type Tamsulosin HCl [Flomax] 0.4 mg PO DAILY 04/05/16 10/16/16 History Budesonide [Pulmicort] 0.5 mg INHALATION RT-BID PRN 09/27/16 10/16/16 History HYDROcodone/APAP 7.5-325MG [[place] 1 tab PO Q4H PRN 09/27/16 10/16/16 History 7.5-325] Allergies Allergy/AdvReac Type Severity Reaction Status Date / Time ciprofloxacin [From Cipro] Allergy Mild Hives Verified 10/16/16 23:13 ciprofloxacin HCl Allergy Mild Hives Verified 10/16/16 23:13 [From Cipro] acetic acid Allergy Rash/Hives Verified 09/27/16 18:12 [From [place] Vinegar and Water] egg Allergy Unknown Verified 09/27/16 18:12 tomato Allergy Rash/Hives Verified 09/27/16 18:12 methylprednisolone AdvReac Severe Abdominal Verified 10/16/16 23:13 [From Medrol] Pain Physical Exam Vitals: Vital Signs Temp Pulse Pulse Resp BP BP Pulse Ox 10/17/16 12:35 76 10/17/16 12:25 76 10/17/16 09:18 76 10/17/16 09:01 72 10/17/16 08:00 88 16 10/17/16 07:00 97.8 F 88 16 124/62 95 10/17/16 04:43 80 10/17/16 04:28 72 10/17/16 04:00 91 18 10/17/16 02:01 99.3 F 87 18 140/68 97 10/17/16 01:43 98.3 F 91 18 130/68 92 L 10/17/16 01:01 98.9 F 95 18 143/67 92 L Intake and Output 10/16/16 10/17/16 10/17/16 22:59 06:59 14:59 Intake Total 300 118 Output Total 150 Balance 300 -32 Intake: Intake, IV Titration 300 Amount cefTRIAXone 1,000 mg In 300 Sodium Chloride 0.9% 50 ml @ 100 mls/hr IVPB Q24H [facility] Rx#:[id number] Oral 118 Output: Urine 150 Other: Voiding Method Urinal Urinal Weight 68.039 kg GENERAL: Pt awake and alert, well-appearing, well-nourished, and in no acute distress. HEAD: Atraumatic, normocephalic. EYES: Pupils equal and round. ENT: Moist mucous membranes. NECK:Normal range of motion but painful with movement to right and left side, supple without lymphadenopathy or JVD. LUNGS: Breath sounds with coarse crackles to auscultation posterior bilaterally. HEART: Heart S1, S2, no S3 or S4. Regular rate and rhythm. Systolic murmur. ABDOMEN: Soft, nontender, distended but easily compresses with palpation, normoactive bowel sounds. No guarding, no rebound. No masses or organomegaly appreciated. EXTREMITIES: 1+ peripheral pulses. 1+ edema to bilateral lower extremities. No calf tenderness. NEUROLOGICAL: Pt oriented x 3. Cranial nerves II through XII grossly intact. Strength and sensation grossly intact. PSYCH: Normal mood, normal affect. SKIN: Warm, dry, intact. Normal turgor. Results CBC & Chem 7: 10/16/16 20:50 10/16/16 20:50 Labs: Abnormal Lab Results - Last 24 Hours (Table) 10/17/16 10/17/16 Range/Units 06:58 11:36 POC Glucose (mg/dL) 167 H 143 H (75-99) mg/dL Chest x-ray: report reviewed Thrombosis Risk Factor Assmnt - DVT/VTE Prophylaxis DVT/VTE Prophylaxis: Mechanical Prophylaxis ordered - Choose All That Apply Any of the Below Risk Factors Present?: Yes Each Factor Represents 1 point: Acute ID Each Risk Factor Represents 3 Points: Age 75 years or older Thrombosis Risk Factor Assessment Total Risk Factor Score: 4 Thrombosis Risk Factor Assessment Level: Moderate Risk Assessment and Plan Plan: Impression and plan: 1. Sepsis, present on admission, suspect secondary to right basilar lung infiltrates suggestive of pneumonia. Pulmonary consult in place, recommendations pending. Continue pneumonia protocol. Continue supplemental oxygen. Continue systemic steroids. 2. Dehydration, present on admission. Continue IV hydration. 3. Coronary artery disease with previous myocardial infarction and stent placement. Continue Plavix. 4. COPD. Continue Pulmicort. 5. Uncontrolled hypertension, better controlled today. Continue Norvasc. 6. History of CVA and multiple TIAs. 7. 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 8. BPH. Continue Flomax. 9. Hyperlipidemia. Continue Lipitor. 10. Edema to bilateral lower extremities and chest x-ray with possible mild CHF. Cardiology consult requested, recommendations pending. 11. Anxiety. Continue Xanax when necessary. 12. Gait dysfunction. Maintain fall precautions. Consult PT OT to help with discharge planning. 13. History of falls. 14. History of nicotine dependence. 15. DVT prophylaxis. Continue pneumatic compression sleeves and BEBE hose to bilateral lower extremities. 16. GI prophylaxis. Start patient on Pepcid. 17. Repeat CBC and BMP in a.m. The above impression and plan have been discussed and directed by Dr. Fraser. Judy PHAM acting as scribe for Dr. Fraser.
[2016-10-17 16:49] LABS: Glucose,Whole Blood 136 mg/dL (75-99)
[2016-10-17] MEDS: ALPRAZolam 0.25 MG TAB PO PRN ×2 (17:00→23:02)
--- NOTE | 2016-10-17 17:22 | P.CNPUL ---
History of Present Illness Consult date: 10/17/16 Reason for consult: dyspnea, cough Chief complaint: Fevers, cough, shortness of breath History of present illness: This is an 85-year-old gentleman who presented to the emergency department complaining of shortness of breath, cough, fevers. The patient is extremely anxious and states that he doesn't want to . His is at bedside. The patient apparently has a history of severe anxiety. She states they're able to control it at home however when he is in the hospital it becomes severe. The patient has taken Xanax in the past. The patient was found to have a right lower lobe pneumonia. The patient does state that he frequently has difficulty swallowing and choking on his food. He was febrile upon admission with a temperature of 100.7. He also had a white blood cell count of 22. Review of Systems All systems: negative Past Medical History Past Medical History: Coronary Artery Disease (CAD), Heart Failure, COPD, CVA/ TIA, Dementia, Eye Disorder, Hypertension, Myocardial Infarction ([place]), Pneumonia , Prostate Disorder Additional Past Medical History / Comment(s): Recent UTI-completed ABX, several TIAs, CVA- R leg affected alittle, BPH, glaucoma-one wet and one dry, pancreatitis, unsteady on his feet, allergies that cause his skin to itch- vinegar/tomatoes/dairy, very limited vision. Last Myocardial Infarction Date:: August 2016 History of Any Multi-Drug Resistant Organisms: None Reported Past Surgical History: Appendectomy, Cholecystectomy, Heart Catheterization With Stent Additional Past Surgical History / Comment(s): 03/2014 PCI with 1 stent, August 2016 stent to circumflex, left carotid, cataract surgery, deviated septum sx, cataracts removed bilaterally with lens implants, colonoscopy with benign polypectomy, L eye injection Past Anesthesia/Blood Transfusion Reactions: No Reported Reaction Date of Last Stent Placement:: 03/2014 Past Psychological History: Anxiety Additional Psychological History / Comment(s): Pt resides with his spouse. Pt uses walker . He has an unsteady gait and has had falls. He has very poor vision. His assists him with many things. Smoking Status: Never smoker Past Alcohol Use History: None Reported Additional Past Alcohol Use History / Comment(s): Pt states he started smoking at age 14 yrs and quit in 2009. He was mostly a pipe smoker and did smoke cigarettes the last few yrs that he smoked. Past Drug Use History: None Reported - Past Family History Mother Family Medical History: Congestive Heart Failure (CHF), Myocardial Infarction ( [place]) Additional Family Medical History / Comment(s): Mother at 94 yrs. Father Family Medical History: Myocardial Infarction ([place]) Additional Family Medical History / Comment(s): of [place] in his 60's Medications and Allergies Home Medications Medication Instructions Recorded Confirmed Type Tamsulosin HCl [Flomax] 0.4 mg PO DAILY 04/05/16 10/16/16 History Budesonide [Pulmicort] 0.5 mg INHALATION RT-BID PRN 09/27/16 10/16/16 History HYDROcodone/APAP 7.5-325MG [[place] 1 tab PO Q4H PRN 09/27/16 10/16/16 History 7.5-325] Allergies Allergy/AdvReac Type Severity Reaction Status Date / Time ciprofloxacin [From Cipro] Allergy Mild Hives Verified 10/16/16 23:13 ciprofloxacin HCl Allergy Mild Hives Verified 10/16/16 23:13 [From Cipro] acetic acid Allergy Rash/Hives Verified 09/27/16 18:12 [From [place] Vinegar and Water] egg Allergy Unknown Verified 09/27/16 18:12 tomato Allergy Rash/Hives Verified 09/27/16 18:12 methylprednisolone AdvReac Severe Abdominal Verified 10/16/16 23:13 [From Medrol] Pain Physical Exam Osteopathic Statement: *. No significant issues noted on an osteopathic structural exam other than those noted in the History and Physical/Consult. Vitals: Vital Signs Temp Pulse Pulse Pulse Resp BP BP 10/17/16 15:37 113 H 10/17/16 15:25 113 H 10/17/16 14:27 97.9 F 85 18 111/43 10/17/16 12:35 76 10/17/16 12:25 76 10/17/16 09:18 76 10/17/16 09:01 72 10/17/16 08:00 88 16 10/17/16 07:00 97.8 F 88 16 124/62 10/17/16 04:43 80 10/17/16 04:28 72 10/17/16 04:00 91 18 10/17/16 02:01 99.3 F 87 18 140/68 10/17/16 01:43 98.3 F 91 18 130/68 10/17/16 01:01 98.9 F 95 18 143/67 Pulse Ox 10/17/16 15:37 10/17/16 15:25 10/17/16 14:27 92 L 10/17/16 12:35 10/17/16 12:25 10/17/16 09:18 10/17/16 09:01 10/17/16 08:00 10/17/16 07:00 95 10/17/16 04:43 10/17/16 04:28 10/17/16 04:00 10/17/16 02:01 97 10/17/16 01:43 92 L 10/17/16 01:01 92 L Intake and Output 10/17/16 10/17/16 10/17/16 06:59 14:59 22:59 Intake Total 300 236 Output Total 200 Balance 300 36 Intake: Intake, IV Titration 300 Amount cefTRIAXone 1,000 mg In 300 Sodium Chloride 0.9% 50 ml @ 100 mls/hr IVPB Q24H [facility] Rx#:[id number] Oral 236 Output: Urine 200 Other: Voiding Method Urinal Urinal Weight 68.039 kg Gen.: Patient is alert and oriented 3, he does appear to be extremely anxious Cardiovascular: Regular rate and rhythm, S1/S2 Lungs: Diminished breath sounds bilaterally with right basilar crackles Abdomen: Soft nontender nondistended positive bowel sounds Extremities: No edema Results - Laboratory Findings CBC and BMP: 10/16/16 20:50 10/16/16 20:50 PT/INR, D-dimer PT 10.8 sec (9.0-12.0) 10/16/16 20:50 INR 1.1 (<1.1) 10/16/16 20:50 Abnormal lab findings: Abnormal Labs 10/17/16 10/17/16 10/17/16 06:58 11:36 16:35 POC Glucose (mg/dL) 167 H 143 H 136 H - Diagnostic Findings Chest x-ray: report reviewed, image reviewed Assessment and Plan Plan: Acute hypoxic respiratory failure Right lower lobe community-acquired pneumonia, also concern for aspiration pneumonia Sepsis History of COPD Dehydration History of coronary artery disease and previous stent placement Hypertension History of CVA Dyslipidemia Severe anxiety History of falls Chronic neck pain O2 to maintain saturation greater than equal to 88% Sputum culture Check influenza Antibiotics: Azithromycin, [place] Pulmicort Bronchodilators Solu-Medrol taper Consult speech language pathology for swallow evaluation Gentle IV fluids
[2016-10-17] MEDS: CLINDAMYCIN 600 MG in DEXTROSE 5% IN WATER 50 ML IVPB SCH ×2 (18:26)
[2016-10-17 21:32] LABS: Glucose,Whole Blood 146 mg/dL (75-99)
[2016-10-18] MEDS: methylPREDNISolone SOD SUCCI 125 MG/2 ML VIAL IV SCH ×4 (00:29→21:06)
[2016-10-18] MEDS: CLINDAMYCIN 600 MG in DEXTROSE 5% IN WATER 50 ML IVPB SCH ×10 (00:29→23:31)
[2016-10-18] MEDS: IPRATROPIUM-ALBUTEROL 3 ML NEB INHALATION SCH ×5 (03:51→20:55)
[2016-10-18] MEDS: HYDROcodone/APAP 7.5-325MG 1 EACH TAB PO PRN ×4 (05:35→21:12)
[2016-10-18] MEDS: SODIUM CHLORIDE 0.9% 1,000 ML IV SCH ×2 (05:36→21:08)
[2016-10-18 07:09] LABS: Anisocytosis Slight; Basophils % (A) 0 %; CH 27.3; CHCM 30.8; Eosinophils # (A) 0.1 k/uL (0-0.7); Eosinophils % (A) 0 %; HCT 34.2 % (39.0-53.0); HDW 2.81; HGB 10.5 gm/dL (13.0-17.5); Hypochromasia Moderate; Luc # (Auto) 0.05; Luc % (Auto) 0; Lymphocytes # (A) 0.3 k/uL (1.0-4.8); Lymphocytes % (A) 2 %; MCH 27.4 pg (25.0-35.0); MCHC 30.7 g/dL (31.0-37.0); MCV 89.3 fL (80.0-100.0); Mean Platelet Volume 6.4; Monocytes # (A) 0.4 k/uL (0-1.0); Monocytes % (A) 2 %; Neutrophils # (A) 18.7 k/uL (1.3-7.7); Neutrophils % (A) 96 %; RBC 3.83 m/uL (4.30-5.90); RDW 16.2 % (11.5-15.5); WBC 19.5 k/uL (3.8-10.6); WBC (Perox) 20.96
[2016-10-18 07:25] LABS: Anion Gap 10 mmol/L; Blood Urea Nitrogen 21 mg/dL (9-20); Calcium 8.6 mg/dL (8.4-10.2); Carbon Dioxide 24 mmol/L (22-30); Chloride 107 mmol/L (98-107); Glucose 151 mg/dL (74-99); Non-African American GFR(MDRD) >60 (>60 ml/min/1.73 sqM); Potassium 4.1 mmol/L (3.5-5.1); Sodium 141 mmol/L (137-145)
[2016-10-18 07:30] LABS: Glucose,Whole Blood 146 mg/dL (75-99)
[2016-10-18] MEDS: BUDESONIDE 0.5 MG/2 ML NEBU INHALATION PRN (07:33)
[2016-10-18] MEDS: CLOPIDOGREL 75 MG TAB PO SCH (08:34)
[2016-10-18] MEDS: ATORVASTATIN 40 MG TAB PO SCH (08:34)
[2016-10-18] MEDS: amLODIPine 5 MG TAB PO SCH (08:34)
[2016-10-18] MEDS: INSULIN LISPRO (humaLOG) 300 UNIT/3 ML VIAL SQ SCH ×4 (08:34→21:21)
[2016-10-18] MEDS: TAMSULOSIN 0.4 MG CAP.ER.24H PO SCH (08:34)
[2016-10-18] MEDS ORDERED: AZITHROMYCIN 500 MG in SODIUM CHLORIDE 0.9% 250 ML IVPB SCH (09:00)
[2016-10-18] MEDS ORDERED: AZITHROMYCIN 500 MG TAB PO SCH (09:00)
--- NOTE | 2016-10-18 09:56 | XR ---
EXAMINATION TYPE: XR chest 2V DATE OF EXAM: 10/18/2016 9:48 AM COMPARISON: October 16, 2016 HISTORY: Shortness of breath TECHNIQUE: Frontal and lateral views of the chest are obtained. FINDINGS: Scattered senescent parenchymal changes noted. Hyperinflation compatible with COPD. Patchy right perihilar and right lower lobe infiltrate persists with small bilateral pleural effusion s. Slight interval improvement suggested. Heart size is stable. Mediastinal structures are stable and grossly unremarkable. No evidence for hilar prominence. Degenerative changes dorsal spine. IMPRESSION: 1. Patchy right perihilar and right lower lobe infiltrate persists with small bilateral pleural effus ions. Slight interval improvement suggested.
--- NOTE | 2016-10-18 11:21 | P.PN ---
Subjective Principal diagnosis: Pneumonia This 85-year-old gentleman with history of ischemic heart disease and recent stent placement of the circumflex, is admitted to the hospital with cough and fever and shortness of breath. Patient is diagnosed to have a right lower lobe pneumonia. Patient is getting antibiotics and seemed to feeling slightly better. A chest x-ray also showed slight improvement in the infiltrates. He doesn't complain of any chest pain. At this point we will continue with antibiotic therapy. Follow-up as needed Objective - Vital Signs Vital signs: Vital Signs Temp 97.3 F L 10/18/16 07:00 Pulse 84 10/18/16 07:54 Resp 18 10/18/16 07:00 BP 116/62 10/18/16 07:00 Pulse Ox 95 10/18/16 07:36 Intake & Output 10/17/16 10/18/16 10/18/16 18:59 06:59 18:59 Intake Total 236 320 400 Output Total 250 100 100 Balance -14 220 300 Weight 68.039 kg 68.039 kg Intake: Intake, IV Titration 320 Amount Sodium Chloride 0.9% 1, 320 000 ml @ 80 mls/hr IV . [id number] [facility] Rx#:[id number] Oral 236 400 Output: Urine 250 100 100 Other: Voiding Method Urinal # Voids 2 - Exam GENERAL EXAM: Patient is alert and oriented and doesn't appear to be in any acute distress HEENT: Normocephalic. Normal reaction of pupils, equal size, normal range of extraocular motion. No erythema or exudates in the throat. NECK: No masses, no nuchal rigidity. CHEST: No chest wall deformity. LUNGS: Expiratory rhonchi and wheezing improved compared to yesterday HEART: S1 and S2 normal with no audible mumurs or gallops. Regular rhythm, femorals equal on both sides.. ABDOMEN: No hepatosplenomegaly, normal bowel sounds, no guarding or rigidity. SKIN: No rashes CENTRAL NERVOUS SYSTEM: No focal deficits. EXTREMITIES: No cyanosis, clubbing or edema. - Labs CBC & Chem 7: 10/18/16 06:41 10/18/16 06:41 Labs: Abnormal Lab Results - Last 24 Hours (Table) 10/17/16 10/17/16 10/17/16 Range/Units 11:36 16:35 21:23 WBC (3.8-10.6) k/uL RBC (4.30-5.90) m/uL Hgb (13.0-17.5) gm/dL Hct (39.0-53.0) % MCHC (31.0-37.0) g/dL RDW (11.5-15.5) % Neutrophils # (1.3-7.7) k/uL Lymphocytes # (1.0-4.8) k/uL BUN (9-20) mg/dL Glucose (74-99) mg/dL POC Glucose (mg/dL) 143 H 136 H 146 H (75-99) mg/dL 10/18/16 10/18/16 10/18/16 Range/Units 06:41 06:41 07:07 WBC 19.5 H (3.8-10.6) k/uL RBC 3.83 L (4.30-5.90) m/uL Hgb 10.5 L (13.0-17.5) gm/dL Hct 34.2 L (39.0-53.0) % MCHC 30.7 L (31.0-37.0) g/dL RDW 16.2 H (11.5-15.5) % Neutrophils # 18.7 H (1.3-7.7) k/uL Lymphocytes # 0.3 L (1.0-4.8) k/uL BUN 21 H (9-20) mg/dL Glucose 151 H (74-99) mg/dL POC Glucose (mg/dL) 146 H (75-99) mg/dL Microbiology - Last 24 Hours (Table) 10/17/16 00:53 Blood Culture - Preliminary Blood No Growth after 24 hours Assessment and Plan (1) CAD (coronary artery disease) Status: Acute (2) Acute exacerbation of chronic obstructive airways disease Status: Acute (3) Bilateral pneumonia Status: Acute (4) Dehydration Status: Acute (5) Elevated lactic acid level Status: Acute Plan: This patient is primary admitted with cough and fever and evidence of pneumonia. Patient is feeling better and seemed to be less short of breath. Chest x-ray showed improvement. Continue current management. We'll follow as needed.
[2016-10-18 12:02] LABS: Glucose,Whole Blood 130 mg/dL (75-99)
--- NOTE | 2016-10-18 13:50 | P.PN ---
Subjective Principal diagnosis: Pneumonia Patient is an 85-year-old male, patient of Dr. Dante Fraser in the outpatient setting with medical history significant for coronary artery disease , COPD, TIAs, CVA, early onset dementia, bilateral macular degeneration, hypertension, myocardial infarction with stent placements, pneumonia, BPH, hyperlipidemia, and gait dysfunction with history of falls. Patient was recently hospitalized in August when he presented with right cervical and right temporal pain suspect secondary to cervical strain and degenerative disc disease and non-Q-wave FL. Patient underwent cardiac catheterization and was found to have moderate disease in the LAD and critical lesion in the distal circumflex and total occlusion of the RCA with stent placement of the circumflex. Patient was discharged home in stable condition. On this admission , patient presented to the emergency department with complaints of shortness of breath and cough. Chest x-ray with evidence of right basilar lung infiltrates; mild right-sided pleural effusion, and possibility of mild CHF. Patient did have a fever of 100.7 in the emergency department with heart rate of 121, oxygenating 90% on room air. Blood pressure on admission 201/84. Admission labs with evidence of leukocytosis, dehydration, and elevated plasma lactic acid venous. BNP level within normal limit. Patient was started on antibiotics according to pneumonia protocol, systemic steroids, and nebulized updraft treatments. Patient was admitted to the surgical unit with consult requested for pulmonology service. 10/17/2016: Upon examination, patient complains of chronic posterior neck pain radiating up into his head. Patient states he recently received steroid injections by Dr. Epstein with minimal relief. Patient states he's scheduled for more injections in about a week. Patient complains of productive cough. Patient complains of weakness and states his has to support him with ambulation at home. Patient denies chills, fevers, nausea, chest pain, or abdominal pain. Patient reports bilateral leg swelling for about a month. Patient reports decreased urine flow, denies dysuria or hematuria. Patient reports occasional constipation. Denies new skin lesions or rash. Patient currently is afebrile. Blood pressure 124/62. Oxygen saturation 95% on 3 L nasal cannula. 10/18/2016: Patient is examined on the surgical unit. Patient reports improvement in degree then. Patient complains of nonproductive cough. Patient has been up ambulating with physical therapy. Denies chills, fevers, nausea, chest pain, or abdominal pain. Bilateral leg swelling improved. Afebrile. WBC decreased to 19.5. Preliminary blood culture with gram-positive cocci in clusters. Chest x-ray with patchy right perihilar and right lower lobe infiltrate persist with small bilateral pleural effusion; slight interval improvement from yesterday. Oxygen saturation 95% on 3 L nasal cannula. Objective - Vital Signs Vital signs: Vital Signs Temp 97.3 F L 10/18/16 07:00 Pulse 80 10/18/16 13:25 Resp 18 10/18/16 08:00 BP 116/62 10/18/16 07:00 Pulse Ox 95 10/18/16 07:36 Intake & Output 10/17/16 10/18/16 10/18/16 18:59 06:59 18:59 Intake Total 236 320 400 Output Total 250 100 100 Balance -14 220 300 Weight 68.039 kg 68.039 kg Intake: Intake, IV Titration 320 Amount Sodium Chloride 0.9% 1, 320 000 ml @ 80 mls/hr IV . [id number] [facility] Rx#:[id number] Oral 236 400 Output: Urine 250 100 100 Other: Voiding Method Urinal Urinal # Voids 2 - Exam GENERAL: Pt awake and alert, well-appearing, well-nourished, and in no acute distress. HEAD: Atraumatic, normocephalic. EYES: Pupils equal and round. ENT: Moist mucous membranes. NECK:Normal range of motion but painful with movement to right and left side, supple without lymphadenopathy or JVD. LUNGS: Breath sounds with coarse rhonchi to auscultation with faint expiratory wheeze. HEART: Heart S1, S2, no S3 or S4. Regular rate and rhythm. Systolic murmur. ABDOMEN: Soft, nontender, distended but easily compresses with palpation, normoactive bowel sounds. No guarding, no rebound. No masses or organomegaly appreciated. EXTREMITIES: 1+ peripheral pulses. 1+ edema to bilateral lower extremities. No calf tenderness. NEUROLOGICAL: Pt oriented x 3. Cranial nerves II through XII grossly intact. Strength and sensation grossly intact. PSYCH: Normal mood, normal affect. SKIN: Warm, dry, intact. Normal turgor. - Labs CBC & Chem 7: 10/18/16 06:41 10/18/16 06:41 Labs: Abnormal Lab Results - Last 24 Hours (Table) 10/17/16 10/17/16 10/18/16 Range/Units 16:35 21:23 06:41 WBC 19.5 H (3.8-10.6) k/uL RBC 3.83 L (4.30-5.90) m/uL Hgb 10.5 L (13.0-17.5) gm/dL Hct 34.2 L (39.0-53.0) % MCHC 30.7 L (31.0-37.0) g/dL RDW 16.2 H (11.5-15.5) % Neutrophils # 18.7 H (1.3-7.7) k/uL Lymphocytes # 0.3 L (1.0-4.8) k/uL BUN (9-20) mg/dL Glucose (74-99) mg/dL POC Glucose (mg/dL) 136 H 146 H (75-99) mg/dL 10/18/16 10/18/16 10/18/16 Range/Units 06:41 07:07 11:37 WBC (3.8-10.6) k/uL RBC (4.30-5.90) m/uL Hgb (13.0-17.5) gm/dL Hct (39.0-53.0) % MCHC (31.0-37.0) g/dL RDW (11.5-15.5) % Neutrophils # (1.3-7.7) k/uL Lymphocytes # (1.0-4.8) k/uL BUN 21 H (9-20) mg/dL Glucose 151 H (74-99) mg/dL POC Glucose (mg/dL) 146 H 130 H (75-99) mg/dL Microbiology - Last 24 Hours (Table) 10/17/16 00:53 Blood Culture - Preliminary Blood No Growth after 24 hours Assessment and Plan Plan: Impression and plan: 1. Sepsis, present on admission, suspect secondary to right basilar lung infiltrates suggestive of pneumonia with concern for aspiration pneumonia. Preliminary blood culture with gram-positive cocci in cluster. Infectious disease consult requested, recommendations pending. Pulmonary consult in place , recommendations noted. Continue IV antibiotics. Continue supplemental oxygen. Continue systemic steroids. Patient awaiting speech language pathology for swallow evaluation. Obtain sputum culture. 2. Acute hypoxia respiratory failure, present on admission. Continue supplemental oxygen to keep oxygen saturation greater than or equal to 88%. 2. Dehydration, present on admission. Continue IV hydration. 3. Coronary artery disease with previous myocardial infarction and stent placement. Continue Plavix. 4. COPD. Continue Pulmicort. 5. Uncontrolled hypertension, better controlled today. Continue Norvasc. 6. History of CVA and multiple TIAs. 7. 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 8. BPH. Continue Flomax. 9. Hyperlipidemia. Continue Lipitor. 10. Edema to bilateral lower extremities and chest x-ray with possible mild CHF. BNP level within normal limits on admission. Echocardiogram with Doppler obtained in August with preserved LV function. Cardiology consult requested, recommendations noted. Per family, patient was taking Lasix 20 mg daily for the last 2 weeks, will resume medication. 11. Anxiety. Continue Xanax when necessary. 12. Gait dysfunction. Maintain fall precautions. Consult PT OT to help with discharge planning. 13. History of falls. 14. History of nicotine dependence. 15. DVT prophylaxis. Continue pneumatic compression sleeves and BEBE hose to bilateral lower extremities. 16. GI prophylaxis. Start patient on Pepcid. 17. Repeat CBC and BMP in a.m. The above impression and plan have been discussed and directed by Dr. Fraser. Judy PHAM acting as scribe for Dr. Fraser.
--- NOTE | 2016-10-18 14:50 | FL ---
ESOPHOGRAM. HISTORY: Dysphagia Esophagram was performed per the single contrast technique. The examination is limited given difficul ty in patient positioning. Noted are tertiary contractions compatible with presbyesophagus. There is no evidence for filling defect or mass . 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 No hiatal hernia seen. Subsequently single contrast cervical esophagram was performed which fails demonstrate evidence for a spiration penetration or mass. IMPRESSION: 1. Presbyesophagus. 2. Small epiphrenic diverticulum.
--- NOTE | 2016-10-18 16:04 | P.PN ---
Subjective Principal diagnosis: Pneumonia Patient seen and examined with at bedside. Patient states he is feeling less anxious and better overall. He is c/o continued difficulty with swallowing and coughing when he eats and drinks. The patient has been afebrile. Objective - Vital Signs Vital signs: Vital Signs Temp 97.8 F 10/18/16 15:42 Pulse 90 10/18/16 15:42 Resp 16 10/18/16 15:42 BP 126/71 10/18/16 15:42 Pulse Ox 95 10/18/16 15:42 Intake & Output 10/17/16 10/18/16 10/18/16 18:59 06:59 18:59 Intake Total 236 320 400 Output Total 250 100 200 Balance -14 220 200 Weight 68.039 kg 68.039 kg Intake: Intake, IV Titration 320 Amount Sodium Chloride 0.9% 1, 320 000 ml @ 80 mls/hr IV . [id number] [facility] Rx#:[id number] Oral 236 400 Output: Urine 250 100 200 Other: Voiding Method Urinal Urinal # Voids 2 - Exam Gen.: Patient is alert and oriented 3, he does appear to be extremely anxious Cardiovascular: Regular rate and rhythm, S1/S2 Lungs: Diminished breath sounds bilaterally with right basilar crackles Abdomen: Soft nontender nondistended positive bowel sounds Extremities: No edema - Labs CBC & Chem 7: 10/18/16 06:41 10/18/16 06:41 Labs: Abnormal Lab Results - Last 24 Hours (Table) 10/17/16 10/17/16 10/18/16 Range/Units 16:35 21:23 06:41 WBC 19.5 H (3.8-10.6) k/uL RBC 3.83 L (4.30-5.90) m/uL Hgb 10.5 L (13.0-17.5) gm/dL Hct 34.2 L (39.0-53.0) % MCHC 30.7 L (31.0-37.0) g/dL RDW 16.2 H (11.5-15.5) % Neutrophils # 18.7 H (1.3-7.7) k/uL Lymphocytes # 0.3 L (1.0-4.8) k/uL BUN (9-20) mg/dL Glucose (74-99) mg/dL POC Glucose (mg/dL) 136 H 146 H (75-99) mg/dL 10/18/16 10/18/16 10/18/16 Range/Units 06:41 07:07 11:37 WBC (3.8-10.6) k/uL RBC (4.30-5.90) m/uL Hgb (13.0-17.5) gm/dL Hct (39.0-53.0) % MCHC (31.0-37.0) g/dL RDW (11.5-15.5) % Neutrophils # (1.3-7.7) k/uL Lymphocytes # (1.0-4.8) k/uL BUN 21 H (9-20) mg/dL Glucose 151 H (74-99) mg/dL POC Glucose (mg/dL) 146 H 130 H (75-99) mg/dL Microbiology - Last 24 Hours (Table) 10/17/16 00:53 Blood Culture - Preliminary Blood No Growth after 24 hours Assessment and Plan Plan: Acute hypoxic respiratory failure Right lower lobe community-acquired pneumonia, also concern for aspiration pneumonia Sepsis Dysphagia History of COPD Dehydration History of coronary artery disease and previous stent placement Hypertension History of CVA Dyslipidemia Severe anxiety History of falls Chronic neck pain O2 to maintain saturation greater than equal to 88% Sputum culture Influenza negative Antibiotics: Azithromycin, Clinda Pulmicort Bronchodilators Solu-Medrol taper Consult speech language pathology for swallow evaluation, will likely need barium swallow Gentle IV fluids
[2016-10-18 16:56] LABS: Glucose,Whole Blood 116 mg/dL (75-99)
[2016-10-18 21:18] LABS: Glucose,Whole Blood 125 mg/dL (75-99)
[2016-10-18] MEDS ORDERED: IPRATROPIUM-ALBUTEROL 3 ML NEB INHALATION PRN (21:25)
[2016-10-18] MEDS: FAMOTIDINE 20 MG TAB PO SCH (21:29)
[2016-10-18] MEDS: ALPRAZolam 0.25 MG TAB PO PRN (22:09)
[2016-10-18] MEDS ORDERED: IV VANCOMYCIN PER PHARMACY 1 EACH MISC MISCELLANE PRN (23:03)
[2016-10-19] MEDS: SODIUM CHLORIDE 0.9% 1,000 ML IV SCH ×2 (03:27→12:15)
[2016-10-19] MEDS: CLINDAMYCIN 600 MG in DEXTROSE 5% IN WATER 50 ML IVPB SCH ×8 (05:08→23:20)
[2016-10-19 06:39] LABS: Glucose,Whole Blood 125 mg/dL (75-99)
[2016-10-19 07:06] LABS: Anion Gap 10 mmol/L; Blood Urea Nitrogen 26 mg/dL (9-20); Calcium 8.6 mg/dL (8.4-10.2); Carbon Dioxide 24 mmol/L (22-30); Chloride 107 mmol/L (98-107); Glucose 131 mg/dL (74-99); Non-African American GFR(MDRD) >60 (>60 ml/min/1.73 sqM); Sodium 141 mmol/L (137-145)
[2016-10-19 07:09] LABS: Anisocytosis Slight; Basophils % (A) 0 %; CH 27.4; Eosinophils # (A) 0.1 k/uL (0-0.7); Eosinophils % (A) 1 %; HCT 34.6 % (39.0-53.0); HDW 2.84; HGB 10.6 gm/dL (13.0-17.5); Hypochromasia Moderate; Luc % (Auto) 1; Lymphocytes # (A) 0.2 k/uL (1.0-4.8); Lymphocytes % (A) 1 %; MCH 27.2 pg (25.0-35.0); MCHC 30.5 g/dL (31.0-37.0); MCV 89.1 fL (80.0-100.0); Mean Platelet Volume 6.6; Monocytes # (A) 0.6 k/uL (0-1.0); Monocytes % (A) 4 %; Neutrophils # (A) 15.7 k/uL (1.3-7.7); Neutrophils % (A) 94 %; RBC 3.88 m/uL (4.30-5.90); RDW 16.1 % (11.5-15.5); WBC 16.7 k/uL (3.8-10.6); WBC (Perox) 17.61
[2016-10-19 07:13] LABS: Potassium 4.7 mmol/L (3.5-5.1)
[2016-10-19] MEDS: IPRATROPIUM-ALBUTEROL 3 ML NEB INHALATION SCH ×4 (07:20→21:07)
[2016-10-19] MEDS: BUDESONIDE 0.5 MG/2 ML NEBU INHALATION PRN ×2 (07:20→21:07)
[2016-10-19 07:38] LABS: Polychromasia Present
[2016-10-19] MEDS: INSULIN LISPRO (humaLOG) 300 UNIT/3 ML VIAL SQ SCH ×4 (07:50→20:07)
[2016-10-19] MEDS: methylPREDNISolone SOD SUCCI 125 MG/2 ML VIAL IV SCH ×2 (08:06→19:52)
[2016-10-19] MEDS: amLODIPine 5 MG TAB PO SCH ×2 (08:25→08:56)
[2016-10-19] MEDS: ONDANSETRON 4 MG/2 ML VIAL IVP PRN ×2 (08:25)
[2016-10-19] MEDS: ATORVASTATIN 40 MG TAB PO SCH ×2 (08:25→08:56)
[2016-10-19] MEDS: FAMOTIDINE 20 MG TAB PO SCH ×2 (08:26→08:56)
[2016-10-19] MEDS: FUROSEMIDE 20 MG TAB PO SCH (08:26)
[2016-10-19] MEDS: CLOPIDOGREL 75 MG TAB PO SCH ×2 (08:26→08:56)
[2016-10-19] MEDS: TAMSULOSIN 0.4 MG CAP.ER.24H PO SCH (08:26)
[2016-10-19] MEDS: HYDROcodone/APAP 7.5-325MG 1 EACH TAB PO PRN ×4 (08:34→22:08)
[2016-10-19] MEDS ORDERED: AZITHROMYCIN 500 MG TAB PO SCH (09:00)
--- NOTE | 2016-10-19 11:07 | CONS ---
DATE OF CONSULTATION: 10/18/2016 REASON FOR CONSULTATION: Bacteremia. HISTORY OF PRESENT ILLNESS: The patient is an 85-year-old male, who presented to the [facility] ER on 10/16/2016 with chief complaints of difficulty in breathing. He also has a cough productive of some yellowish sputum. No hemoptysis. The patient denies having any significant chest pain. The patient did have a fever with outpatient white count . Subsequently, evaluated by the ER physician where the patient did have a chest x-ray which did show mild right-sided pleural effusion basilar lung infiltrate. The patient did have fever of 100.7 on arrival to the ER and the patient did have an elevated white count of 22.3. The patient did have blood cultures obtained which are now showing gram-positive cocci The patient being treated with clindamycin and azithromycin with concern for possible difficulty swallowing and some choking on the food. Swallow evaluation was requested; however, that seems to be inconclusive. I was asked to see the patient for further recommendation regarding antibiotic therapy. REVIEW OF SYSTEMS: CONSTITUTIONAL: Positive for weakness along fever. EYES: No complaint. ENT: No complaint. RESPIRATORY: As per HPI. CARDIOVASCULAR: No complaint. GENITOURINARY: No complaint. MUSCULOSKELETAL: No complaint. INTEGUMENTARY: No complaint. PSYCHOLOGICAL: No complaint. ENDOCRINE: No complaint. NEUROLOGIC: No complaint. PAST MEDICAL HISTORY: Significant for coronary artery disease, COPD, CVA/TIA, dementia, hypertension, ME, pneumonia, recurrent urinary tract infection, TIAs, BPH, glaucoma. PAST SURGICAL HISTORY: Appendectomy, cholecystectomy, PTCA and stent placement. SOCIAL HISTORY: The patient is , lives with his . No history of smoking, drinking, or drug use. FAMILY HISTORY: Mother with history of ME; at the age of 94. Father with history of ME; in his 60s. ALLERGY TO CIPROFLOXACIN, ZOSYN, PREDNISOLONE. Medications include the patient is currently on [place], DuoNeb, Xanax, Norvasc, Lipitor, Pulmicort, clindamycin, Plavix, Pepcid, Lasix, Humalog, Solu-Medrol and Flomax. On examination, blood pressure 172/82 with pulse of 94, temperature 97.9. He is 93% on 3 liters nasal cannula. General description is an elderly male, lying in bed in no distress. No tachypnea or accessory muscle of respiration use. HEENT examination shows pallor. There is no scleral icterus. Pupils equal, round and reactive. Oral mucosal membranes dry. NECK: Trachea central, no thyromegaly. LUNGS: Unlabored breathing with coarse breath sounds in the right base. No wheeze. HEART: S1, S2 regular rate and rhythm. ABDOMEN: Soft, no tenderness. EXTREMITIES: No edema of feet. SKIN EXAMINATION: No rash or mass palpable. NEUROLOGICAL: The patient is awake, alert and oriented x3. Mood and affect normal. LABS: Hemoglobin is 10.5, white count 19.5, BUN of 21, creatinine 0.96. Sputum culture is currently pending. Blood cultures with Gram-positive cocci. DIAGNOSTIC IMPRESSION AND PLAN: Patient with a Gram-positive bacteremia in patient admitted to hospital with right basilar pneumonia in a patient who did have a fever of 100.7 and elevated white count meeting criteria for sepsis/systemic inflammatory response syndrome. Also concern for possible aspiration risk with a history of possible choking on the food. PLAN: 1. Blood cultures x1 to make sure there is no evidence of any persistent bacteremia. 2. Start the patient on vancomycin, pharmacy to dose and continue to cover for the possible aspiration agent with zosyn discontinue the azithromycin. 3. Will follow up on the clinical condition and cultures to further adjust the medication if needed. Thank you for this consultation. I will follow this patient along with you. HAMIDA
[2016-10-19 11:16] LABS: Glucose,Whole Blood 136 mg/dL (75-99)
--- NOTE | 2016-10-19 15:32 | PN ---
DATE OF SERVICE: 10/19/2016. He continues to have shortness of breath, but seems to be doing somewhat better overall. On physical examination, his blood pressure 131/71, respiratory rate 17, pulse rate of 76, temperature 97.8, O2 sat on 3 liters by nasal cannula is 95%. HEENT reveals pupils that are equal. Chest reveals expiratory wheeze with occasional rhonchi in the base. Cardiovascular system reveals an S1, S2. ABDOMEN: Soft. There is no edema. IMPRESSION: Aspiration-type pneumonia with barium showing presbyesophagus. At this point in time, continue clindamycin, IV steroids, aerosolized steroids and bronchodilators. Continue GI prophylaxis. Continue Plavix and vancomycin. His prognosis at this time is fair.
[2016-10-19] MEDS: VANCOMYCIN 1,250 MG in SODIUM CHLORIDE 0.9% 250 ML IVPB SCH ×3 (15:47)
[2016-10-19 17:11] LABS: Glucose,Whole Blood 122 mg/dL (75-99)
[2016-10-19] MEDS: ALPRAZolam 0.25 MG TAB PO PRN (19:53)
[2016-10-19 19:58] LABS: Glucose,Whole Blood 120 mg/dL (75-99)
[2016-10-20] MEDS: HYDROcodone/APAP 7.5-325MG 1 EACH TAB PO PRN ×6 (02:13→23:52)
[2016-10-20] MEDS: CLINDAMYCIN 600 MG in DEXTROSE 5% IN WATER 50 ML IVPB SCH ×4 (05:10→11:21)
[2016-10-20] MEDS: SODIUM CHLORIDE 0.9% 1,000 ML IV SCH ×2 (05:15→16:12)
[2016-10-20 07:02] LABS: Glucose,Whole Blood 125 mg/dL (75-99)
[2016-10-20 07:07] LABS: Anion Gap 10 mmol/L; Anisocytosis Slight; Basophils % (A) 0 %; Blood Urea Nitrogen 25 mg/dL (9-20); CH 27.6; CHCM 31.4; Calcium 8.4 mg/dL (8.4-10.2); Carbon Dioxide 23 mmol/L (22-30); Chloride 107 mmol/L (98-107); Eosinophils # (A) 0.1 k/uL (0-0.7); Eosinophils % (A) 0 %; Glucose 135 mg/dL (74-99); HCT 34.2 % (39.0-53.0); HDW 2.88; HGB 10.5 gm/dL (13.0-17.5); Hypochromasia Slight; Luc # (Auto) 0.09; Luc % (Auto) 1; Lymphocytes # (A) 0.2 k/uL (1.0-4.8); Lymphocytes % (A) 2 %; MCH 27.3 pg (25.0-35.0); MCHC 30.8 g/dL (31.0-37.0); MCV 88.7 fL (80.0-100.0); Mean Platelet Volume 6.8; Monocytes # (A) 0.7 k/uL (0-1.0); Monocytes % (A) 5 %; Neutrophils # (A) 13.1 k/uL (1.3-7.7); Neutrophils % (A) 93 %; Non-African American GFR(MDRD) >60 (>60 ml/min/1.73 sqM); Potassium 4.5 mmol/L (3.5-5.1); RBC 3.85 m/uL (4.30-5.90); RDW 16.3 % (11.5-15.5); Sodium 140 mmol/L (137-145); WBC 14.1 k/uL (3.8-10.6); WBC (Perox) 14.96
[2016-10-20] MEDS: VANCOMYCIN 1,250 MG in SODIUM CHLORIDE 0.9% 250 ML IVPB SCH ×2 (07:24→22:48)
[2016-10-20] MEDS: ATORVASTATIN 40 MG TAB PO SCH (07:28)
[2016-10-20] MEDS: amLODIPine 5 MG TAB PO SCH (07:28)
[2016-10-20] MEDS: TAMSULOSIN 0.4 MG CAP.ER.24H PO SCH (07:28)
[2016-10-20] MEDS: CLOPIDOGREL 75 MG TAB PO SCH (07:28)
[2016-10-20] MEDS: FAMOTIDINE 20 MG TAB PO SCH (07:29)
[2016-10-20] MEDS: FUROSEMIDE 20 MG TAB PO SCH (07:29)
[2016-10-20] MEDS: methylPREDNISolone SOD SUCCI 125 MG/2 ML VIAL IV SCH ×2 (07:29→20:39)
[2016-10-20] MEDS: BUDESONIDE 0.5 MG/2 ML NEBU INHALATION PRN (07:35)
[2016-10-20] MEDS: IPRATROPIUM-ALBUTEROL 3 ML NEB INHALATION SCH ×4 (07:35→21:48)
[2016-10-20] MEDS: INSULIN LISPRO (humaLOG) 300 UNIT/3 ML VIAL SQ SCH ×4 (08:01→22:43)
--- NOTE | 2016-10-20 09:41 | PN ---
DATE OF SERVICE: 10/19/2016 Reason for follow-up pneumonia and bacteremia. INTERVAL HISTORY: The patient is afebrile. He has been breathing comfortably. He continues to have a cough, but not bringing up any sputum. Denies any chest pain, no abdominal pain. No nausea, vomiting or any diarrhea. On examination, blood pressure is 133/62 with a pulse of 98, temperature 97.8, he is 93% on 3 liters nasal cannula. General description is an elderly male up in the bed in no distress. RESPIRATORY SYSTEM: Unlabored breathing. Some coarse breath sounds at the base. No wheeze. HEART: S1, S2 regular rate and rhythm. ABDOMEN: Soft, no tenderness. LABS: Hemoglobin is 10.6, white count down to 16, BUN of 26, creatinine 0.83. Blood cultures from the third also positive. DIAGNOSTIC IMPRESSION AND PLAN: Patient with bacteremia. Blood culture with more likely strep pneumo. We will start the patient on Cefazolin currently covered with Clindamycin. Vanco will be continued. Blood cultures will be repeated to make sure no evidence of persistant bacteremia. Continue supportive care. [facility]
[2016-10-20 11:36] LABS: Glucose,Whole Blood 121 mg/dL (75-99)
--- NOTE | 2016-10-20 11:53 | PN ---
DATE OF SERVICE: 10/19/2016 INTERVAL HISTORY: Mr. Melissa is an 85-year-old male with a past medical history of coronary artery disease, COPD, TIA, CVA, early onset dementia, hypertension, benign prostatic hypertrophy, hyperlipidemia, gait dysfunction, recurrent falls, admitted to the hospital with a chief complaint of difficulty in breathing. Patient has a chest x-ray showing a right basilar lung infiltrate and mild right-sided pleural effusion with possibility of mild congestive heart failure. so he is currently being treated for it. Today the patient is lying in bed, currently getting his breathing treatments. He states his difficulty in breathing has improved since coming in. REVIEW OF SYSTEMS: CONSTITUTIONAL: Denies having any fevers, chills or rigors. RESPIRATORY: No worsening of cough. GI: No abdominal pain, nausea, vomiting, or diarrhea. : No dysuria or hematuria. Patient's medications have been reviewed. On examination, patient's vital signs: Temperature 97.8, heart rate 98, respiratory 20, blood pressure 133/62, saturating at 93% on 2 liters of nasal cannula. GENERAL EXAMINATION: Patient is elderly male, lying in bed, appears to be in no acute distress. He is thin and he is getting his breathing treatments currently. HEAD: Atraumatic, nontraumatic. EYES: Pupils are round and reactive to light. NECK: No JVD. No thyromegaly. CARDIOVASCULAR: S1, S2 heard. LUNGS: Diminished breath sounds in all lung mills with coarse breath sounds. No crackles. HEART: S1, S2 heard. ABDOMEN: Soft, nontender. Bowel sounds positive. HEART: Systolic murmur is positive. EXTREMITIES: No edema. No cyanosis, no clubbing. SERVICE CONTROL OPERATOR: Alert, awake, oriented x2 to 3. No focal neurological deficits. SKIN: Warm to touch. Patient's labs: White count of 16.7, hemoglobin 10.6, platelets of 368. Sodium 141, potassium 4.7, chloride 107, bicarb 24, BUN 26, creatinine 0.83. ASSESSMENT AND PLAN: 1. Sepsis secondary to right basilar pneumonia. 2. Gram positive bacteremia. 3. Dehydration on admission. 4. Chronic obstructive pulmonary disease. 5. Coronary artery disease with previous myocardial infarction and stent placement. 6. History of cerebrovascular accident/transient ischemic attack. 7. Macular degeneration. 8. Hyperlipidemia. 9. Anxiety. 10. Gait dysfunction. 11. History of recurrent falls. 12. History of nicotine dependence. 13. Gastrointestinal and deep venous thrombosis prophylaxis. PLAN: The plan is to continue the patient on vancomycin and clindamycin. Continue with IV steroids and breathing treatments. Continue with the rest of his medication management and further recommendations to follow depending on the progress of the patient.
--- NOTE | 2016-10-20 15:42 | PN ---
INTERVAL HISTORY: Mr. Melissa is an 85-year-old male with a past medical history of coronary artery disease, COPD, TIA/CVA, early onset dementia, hypertension, BPH, hyperlipidemia, gait dysfunction, recurrent falls, admitted to the hospital with the chief complaint of difficulty in breathing. The patient's chest x-ray showing right basilar lung infiltrate and mild right-sided pleural effusion with the possibility of mild CHF exacerbation. So the patient is being treated for it currently. On examination, the patient is lying in bed, appears to be in no acute distress. He states his breathing has improved since coming in. Patient's sputum production has decreased, but he is still having some yellowish sputum. REVIEW OF SYSTEMS: CONSTITUTIONAL: Denies any fevers, chills, or rigors. RESPIRATORY: Cough is getting better. GI: No abdominal pain, nausea, vomiting, or diarrhea. : No dysuria or hematuria. The patient's medications have been reviewed. On examination, patient's vital signs, temperature is 97.5, heart rate 76, respirations rate 22, blood pressure 150/69, saturating at 93% on 3 L of nasal cannula. GENERAL EXAMINATION: Patient is an elderly male, sitting up in a chair beside his bed, appears to be in no acute distress. HEAD: Atraumatic, normocephalic. EYES: Pupils round and reactive to light. NECK: No JVD. No thyromegaly. CARDIAC: S1, S2 heard. LUNGS: Diminished breath sounds in all lung mills. With a few coarse breath sounds, no crackles. HEART: S1, S2 heard. ABDOMEN: Soft, nontender. Bowel sounds positive, systolic murmur is positive. EXTREMITIES: No edema. No cyanosis, no clubbing. HUMAN RESOURCES TEMP: Alert, awake, oriented x2 to 3. No focal deficits. SKIN: Warm to touch. Patient's labs: White count of 14.1, hemoglobin is 10.5, platelets 334, sodium 140, potassium 4.6, chloride 107, bicarb 23, BUN 25, creatinine 0.86. ASSESSMENT AND PLAN: 1. Sepsis secondary to right basilar pneumonia. 2. Gram-positive bacteremia. 3. Dehydration. 4. Chronic obstructive pulmonary disease. 5. Coronary artery disease with previous myocardial infarction and stent placement. 6. History of cerebrovascular accident/transient ischemic attack. 7. Macular degeneration. 8. Hyperlipidemia. 9. Anxiety. 10. Gait dysfunction. 11. History of recurrent falls. 12. History of nicotine dependence. 13. Gastrointestinal and deep venous thrombosis prophylaxis. PLAN: The plan is to continue the patient on antibiotics in the form of vancomycin and clindamycin. Continue with IV steroids and breathing treatments and the patient's blood cultures have been reviewed and showing gram-negative bacilli and gram-positive cocci in chains. YUNG and Dr. Bridges on board. Will continue with the current medication regimen and further recommendations depending on the progress of the patient.
[2016-10-20 16:58] LABS: Glucose,Whole Blood 116 mg/dL (75-99)
[2016-10-20] MEDS: PIPERACILLIN-TAZOBACTAM 3.375 GM in DEXTROSE/WATER 1 50ML.BAG IVPB SCH (17:53)
[2016-10-20] MEDS: ALPRAZolam 0.25 MG TAB PO PRN ×2 (18:14→22:48)
[2016-10-20 20:57] LABS: Glucose,Whole Blood 116 mg/dL (75-99)
--- NOTE | 2016-10-20 23:24 | PN ---
DATE OF SERVICE: 10/20/2016. He has been hemodynamically stable. He has less nausea and emesis. He is feeling better overall as far as his breathing is concerned. On physical examination, his blood pressure is 113/57, respiratory rate 18, pulse of 79, temperature 97.7. O2 sat on 3 liters by nasal cannula is 92%. HEENT is unremarkable. Chest reveals scattered rhonchi bilaterally in the bases. Cardiovascular system reveals an S1, S2. ABDOMEN: Soft. There is trace pedal edema. IMPRESSION: 1. Aspiration pneumonia. 2. Bronchospasm. Continue bronchodilators, aerosolized steroids, IV steroids, vancomycin, piperacillin and Tazobactam. Discharge planning for tomorrow would be appropriate if he is otherwise stable.
[2016-10-21] MEDS: PIPERACILLIN-TAZOBACTAM 3.375 GM in DEXTROSE/WATER 1 50ML.BAG IVPB SCH ×4 (01:09→23:48)
[2016-10-21] MEDS: HYDROcodone/APAP 7.5-325MG 1 EACH TAB PO PRN ×5 (04:29→21:51)
[2016-10-21] MEDS: SODIUM CHLORIDE 0.9% 1,000 ML IV SCH ×6 (04:31→23:54)
[2016-10-21 06:51] LABS: Anion Gap 8 mmol/L; Blood Urea Nitrogen 24 mg/dL (9-20); Calcium 8.4 mg/dL (8.4-10.2); Carbon Dioxide 26 mmol/L (22-30); Chloride 105 mmol/L (98-107); Glucose 131 mg/dL (74-99); Non-African American GFR(MDRD) >60 (>60 ml/min/1.73 sqM); Potassium 4.4 mmol/L (3.5-5.1); Sodium 139 mmol/L (137-145)
[2016-10-21 06:58] LABS: Anisocytosis Slight; Basophils % (A) 0 %; CH 27.7; CHCM 31.9; Eosinophils % (A) 0 %; HCT 34.2 % (39.0-53.0); HDW 2.86; HGB 10.7 gm/dL (13.0-17.5); Hypochromasia Slight; Luc # (Auto) 0.06; Luc % (Auto) 1; Lymphocytes # (A) 0.2 k/uL (1.0-4.8); Lymphocytes % (A) 2 %; MCH 27.4 pg (25.0-35.0); MCHC 31.3 g/dL (31.0-37.0); MCV 87.5 fL (80.0-100.0); Mean Platelet Volume 6.7; Monocytes # (A) 0.5 k/uL (0-1.0); Monocytes % (A) 4 %; Neutrophils # (A) 11.3 k/uL (1.3-7.7); Neutrophils % (A) 94 %; RBC 3.91 m/uL (4.30-5.90); RDW 16.1 % (11.5-15.5); WBC 12.1 k/uL (3.8-10.6)
[2016-10-21 07:44] LABS: Glucose,Whole Blood 121 mg/dL (75-99)
[2016-10-21] MEDS: INSULIN LISPRO (humaLOG) 300 UNIT/3 ML VIAL SQ SCH ×3 (07:54→20:12)
[2016-10-21] MEDS: IPRATROPIUM-ALBUTEROL 3 ML NEB INHALATION SCH ×4 (08:19→19:51)
[2016-10-21] MEDS: BUDESONIDE 0.5 MG/2 ML NEBU INHALATION PRN ×2 (08:19→19:51)
[2016-10-21] MEDS: methylPREDNISolone SOD SUCCI 125 MG/2 ML VIAL IV SCH (08:50)
[2016-10-21] MEDS: FAMOTIDINE 20 MG TAB PO SCH (08:51)
[2016-10-21] MEDS: TAMSULOSIN 0.4 MG CAP.ER.24H PO SCH (08:51)
[2016-10-21] MEDS: CLOPIDOGREL 75 MG TAB PO SCH (08:51)
[2016-10-21] MEDS: ATORVASTATIN 40 MG TAB PO SCH (08:51)
[2016-10-21] MEDS: amLODIPine 5 MG TAB PO SCH (08:51)
[2016-10-21] MEDS: FUROSEMIDE 20 MG TAB PO SCH (08:51)
[2016-10-21] MEDS: ALPRAZolam 0.25 MG TAB PO PRN ×2 (11:15→20:12)
[2016-10-21 11:40] LABS: Glucose,Whole Blood 109 mg/dL (75-99)
--- NOTE | 2016-10-21 12:27 | XR ---
EXAMINATION TYPE: XR chest 2V DATE OF EXAM: 10/21/2016 12:22 PM COMPARISON: Prior chest x-ray October 18, 2016. HISTORY: Abscess and gram-negative bacteremia per order. TECHNIQUE: Frontal and lateral views of the chest are obtained. FINDINGS: There is likely mild cardiomegaly with small bilateral pleural effusions and associated bi basilar atelectasis and/or infiltrate all redemonstrated. Underlying emphysematous change may be pres ent. Atherosclerotic change in thoracic aorta is again seen. The osseous structures are demineralized . Degenerative changes at glenohumeral joint are redemonstrated bilaterally. IMPRESSION: Similar prior exam, CHF exacerbation should be considered as there is mild cardiomegaly with small bilateral pleural effusions and mild central vascular congestion all redemonstrated. Bibas ilar infiltrate and/or atelectasis is also noted similar to prior.
--- NOTE | 2016-10-21 12:28 | P.PN ---
Subjective Principal diagnosis: Aspiration pneumonia Patient seen and examined. Patient is complaining of severe neck and back pain. Patient states his breathing is fine. He is just very anxious. Objective - Vital Signs Vital signs: Vital Signs Temp 97.0 F L 10/21/16 07:00 Pulse 90 10/21/16 08:39 Resp 20 10/21/16 07:00 BP 141/68 10/21/16 07:00 Pulse Ox 94 L 10/21/16 04:00 Intake & Output 10/20/16 10/21/16 10/21/16 18:59 06:59 18:59 Intake Total 360 1810 480 Output Total 1 200 Balance 359 1610 480 Weight 69.56 kg Intake: Intake, IV Titration 1310 Amount Piperacillin-Tazobactam 3 100 .375 gm In Dextrose/Water 1 50ml.bag @ 12.5 mls/hr IVPB Q8HR [facility] Rx#: [id number] Sodium Chloride 0.9% 1, 960 000 ml @ 80 mls/hr IV . [id number] [facility] Rx#:[id number] Vancomycin 1,250 mg In 250 Sodium Chloride 0.9% 250 ml @ 125 mls/hr IVPB Q16H [facility] Rx#:[id number] Oral 360 500 480 Output: Urine 200 Stool 1 Other: Voiding Method Urinal Urinal # Voids 2 - Exam Gen.: Patient is alert and oriented 3, he does appear to be extremely anxious Cardiovascular: Regular rate and rhythm, S1/S2 Lungs: Diminished breath sounds bilaterally with right basilar crackles Abdomen: Soft nontender nondistended positive bowel sounds Extremities: No edema - Labs CBC & Chem 7: 10/21/16 06:16 10/21/16 06:16 Labs: Abnormal Lab Results - Last 24 Hours (Table) 10/20/16 10/20/16 10/21/16 Range/Units 16:49 20:38 06:16 WBC 12.1 H (3.8-10.6) k/uL RBC 3.91 L (4.30-5.90) m/uL Hgb 10.7 L (13.0-17.5) gm/dL Hct 34.2 L (39.0-53.0) % RDW 16.1 H (11.5-15.5) % Neutrophils # 11.3 H (1.3-7.7) k/uL Lymphocytes # 0.2 L (1.0-4.8) k/uL BUN (9-20) mg/dL Glucose (74-99) mg/dL POC Glucose (mg/dL) 116 H 116 H (75-99) mg/dL 10/21/16 10/21/16 10/21/16 Range/Units 06:16 07:15 11:35 WBC (3.8-10.6) k/uL RBC (4.30-5.90) m/uL Hgb (13.0-17.5) gm/dL Hct (39.0-53.0) % RDW (11.5-15.5) % Neutrophils # (1.3-7.7) k/uL Lymphocytes # (1.0-4.8) k/uL BUN 24 H (9-20) mg/dL Glucose 131 H (74-99) mg/dL POC Glucose (mg/dL) 121 H 109 H (75-99) mg/dL Microbiology - Last 24 Hours (Table) 10/18/16 23:20 Blood Culture Gram Stain - Final Blood Blood Culture - Final Alpha Hemolytic Streptococcus 10/17/16 00:53 Blood Culture - Preliminary Blood No Growth after 96 hours 10/20/16 08:25 Gram Stain - Preliminary Sputum 10/19/16 16:20 Blood Culture - Preliminary Blood No Growth after 24 hours Assessment and Plan Plan: Acute hypoxic respiratory failure Right lower lobe, aspiration pneumonia Gram-positive and gram-negative bacteremia, awaiting final cultures Sepsis Dysphagia History of COPD Dehydration History of coronary artery disease and previous stent placement Hypertension History of CVA Dyslipidemia Severe anxiety History of falls Chronic neck pain O2 to maintain saturation greater than equal to 88% Sputum culture Repeat blood cultures pending Influenza negative Antibiotics: Vancomycin, Clinda Pulmicort Bronchodilators Solu-Medrol taper, change to by mouth prednisone today Modified diet per speech lung which pathology Decrease IV fluids DC planning for possible subacute rehab
[2016-10-21] MEDS: IOHEXOL 350 MG/ML 25 ML BOTTLE (ORAL USE) PO PRN ×2 (12:51→14:00)
[2016-10-21] MEDS ORDERED: VANCOMYCIN TROUGH DUE 1 EACH MISC MISCELLANE ONE (14:00)
--- NOTE | 2016-10-21 14:54 | PN ---
DATE OF SERVICE: 10/20/2016 Reason for followup is pneumonia and bacteremia. INTERVAL HISTORY: The patient is afebrile. Still breathing hard and continued to have a cough. Patient denies having any chest pain, no abdominal pain, no vomiting, or any diarrhea. On examination, blood pressure is 113/57 with a pulse of 79, temperature around 97.7, he is 92% on 3 L. General description is an elderly male, up in the bed in no distress. RESPIRATORY SYSTEM: Unlabored breathing. Coarse breath sounds in the bases. No wheeze. HEART: S1, S2, regular rate and rhythm. ABDOMEN: Soft, nontender. LABS: Hemoglobin is 10.5, white count of 14.1 with a BUN of 25, creatinine 0.89. Blood culture now with gram-negative bacilli and Streptococcus. Sputum is currently negative. DIAGNOSTIC IMPRESSION AND PLAN: Patient with her bacteremia, with a source more likely an aspiration. Now with blood culture showing gram-negative. Will add Zosyn to the vancomycin, discontinue the clindamycin. Wait for the final if it is gram-negative. Continue supportive care.
--- NOTE | 2016-10-21 15:58 | P.PN ---
Subjective Principal diagnosis: Pneumonia Patient is an 85-year-old male, patient of Dr. Dante Fraser in the outpatient setting with medical history significant for coronary artery disease , COPD, TIAs, CVA, early onset dementia, bilateral macular degeneration, hypertension, myocardial infarction with stent placements, pneumonia, BPH, hyperlipidemia, and gait dysfunction with history of falls. Patient was recently hospitalized in August when he presented with right cervical and right temporal pain suspect secondary to cervical strain and degenerative disc disease and non-Q-wave DC. Patient underwent cardiac catheterization and was found to have moderate disease in the LAD and critical lesion in the distal circumflex and total occlusion of the RCA with stent placement of the circumflex. Patient was discharged home in stable condition. On this admission , patient presented to the emergency department with complaints of shortness of breath and cough. Chest x-ray with evidence of right basilar lung infiltrates; mild right-sided pleural effusion, and possibility of mild CHF. Patient did have a fever of 100.7 in the emergency department with heart rate of 121, oxygenating 90% on room air. Blood pressure on admission 201/84. Admission labs with evidence of leukocytosis, dehydration, and elevated plasma lactic acid venous. BNP level within normal limit. Patient was started on antibiotics according to pneumonia protocol, systemic steroids, and nebulized updraft treatments. Patient was admitted to the surgical unit with consult requested for pulmonology service. 10/17/2016: Upon examination, patient complains of chronic posterior neck pain radiating up into his head. Patient states he recently received steroid injections by Dr. Epstein with minimal relief. Patient states he's scheduled for more injections in about a week. Patient complains of productive cough. Patient complains of weakness and states his has to support him with ambulation at home. Patient denies chills, fevers, nausea, chest pain, or abdominal pain. Patient reports bilateral leg swelling for about a month. Patient reports decreased urine flow, denies dysuria or hematuria. Patient reports occasional constipation. Denies new skin lesions or rash. Patient currently is afebrile. Blood pressure 124/62. Oxygen saturation 95% on 3 L nasal cannula. 10/18/2016: Patient is examined on the surgical unit. Patient reports improvement in degree then. Patient complains of nonproductive cough. Patient has been up ambulating with physical therapy. Denies chills, fevers, nausea, chest pain, or abdominal pain. Bilateral leg swelling improved. Afebrile. WBC decreased to 19.5. Preliminary blood culture with gram-positive cocci in clusters. Chest x-ray with patchy right perihilar and right lower lobe infiltrate persist with small bilateral pleural effusion; slight interval improvement from yesterday. Oxygen saturation 95% on 3 L nasal cannula. 10/21/2016: Upon examination, patient is sitting up in a chair. Patient is complaining of temporal pain that is consistent with previous symptoms secondary to cervical strain. Patient denies shortness of breath. Denies chills, nausea, vomiting, chest pain, or abdominal pain. This x-ray from this morning with mild cardiomegaly with small bilateral pleural effusions and mild central vascular congestion with bibasilar infiltrate noted similar to prior x- ray. Patient is afebrile. Objective - Vital Signs Vital signs: Vital Signs Temp 97.6 F 10/21/16 14:42 Pulse 83 10/21/16 14:42 Resp 17 10/21/16 14:42 BP 162/84 10/21/16 14:42 Pulse Ox 92 L 10/21/16 14:42 Intake & Output 10/20/16 10/21/16 10/21/16 18:59 06:59 18:59 Intake Total 360 1810 480 Output Total 1 200 Balance 359 1610 480 Weight 69.56 kg Intake: Intake, IV Titration 1310 Amount Piperacillin-Tazobactam 3 100 .375 gm In Dextrose/Water 1 50ml.bag @ 12.5 mls/hr IVPB Q8HR [facility] Rx#: [id number] Sodium Chloride 0.9% 1, 960 000 ml @ 80 mls/hr IV . [id number] [facility] Rx#:[id number] Vancomycin 1,250 mg In 250 Sodium Chloride 0.9% 250 ml @ 125 mls/hr IVPB Q16H [facility] Rx#:[id number] Oral 360 500 480 Output: Urine 200 Stool 1 Other: Voiding Method Urinal Urinal # Voids 2 - Exam GENERAL: Pt awake and alert, well-nourished, and in no acute distress. HEAD: Atraumatic, normocephalic. EYES: Pupils equal and round. ENT: Moist mucous membranes. NECK:Normal range of motion but painful with movement to right and left side, supple without lymphadenopathy or JVD. LUNGS: Breath sounds diminished with right basilar crackles. HEART: Heart S1, S2, no S3 or S4. Regular rate and rhythm. Systolic murmur. ABDOMEN: Soft, nontender, distended but easily compresses with palpation, normoactive bowel sounds. EXTREMITIES: 1+ peripheral pulses. No edema. No calf tenderness. NEUROLOGICAL: Pt oriented x 3. No focal deficits. Strength and sensation grossly intact. PSYCH: Anxious. SKIN: Warm, dry, intact. - Labs CBC & Chem 7: 10/21/16 06:16 10/21/16 06:16 Labs: Abnormal Lab Results - Last 24 Hours (Table) 10/20/16 10/20/16 10/21/16 Range/Units 16:49 20:38 06:16 WBC 12.1 H (3.8-10.6) k/uL RBC 3.91 L (4.30-5.90) m/uL Hgb 10.7 L (13.0-17.5) gm/dL Hct 34.2 L (39.0-53.0) % RDW 16.1 H (11.5-15.5) % Neutrophils # 11.3 H (1.3-7.7) k/uL Lymphocytes # 0.2 L (1.0-4.8) k/uL BUN (9-20) mg/dL Glucose (74-99) mg/dL POC Glucose (mg/dL) 116 H 116 H (75-99) mg/dL 10/21/16 10/21/16 10/21/16 Range/Units 06:16 07:15 11:35 WBC (3.8-10.6) k/uL RBC (4.30-5.90) m/uL Hgb (13.0-17.5) gm/dL Hct (39.0-53.0) % RDW (11.5-15.5) % Neutrophils # (1.3-7.7) k/uL Lymphocytes # (1.0-4.8) k/uL BUN 24 H (9-20) mg/dL Glucose 131 H (74-99) mg/dL POC Glucose (mg/dL) 121 H 109 H (75-99) mg/dL Microbiology - Last 24 Hours (Table) 10/18/16 23:20 Blood Culture Gram Stain - Final Blood Blood Culture - Final Alpha Hemolytic Streptococcus 10/17/16 00:53 Blood Culture - Preliminary Blood No Growth after 96 hours 10/20/16 08:25 Gram Stain - Preliminary Sputum 10/19/16 16:20 Blood Culture - Preliminary Blood No Growth after 24 hours Assessment and Plan Plan: Impression and plan: 1. Sepsis, present on admission, suspect secondary to right basilar lung infiltrates suggestive of pneumonia suspect aspiration. Gram-positive and gram- negative bacteremia, awaiting final cultures. Infectious disease consult requested, recommendations noted. Pulmonary consult in place, recommendations noted. Continue IV antibiotics. Continue supplemental oxygen. Continue systemic steroids. 2. Acute hypoxia respiratory failure, present on admission. Continue supplemental oxygen to keep oxygen saturation greater than or equal to 88%. 2. Dehydration, present on admission. Continue IV hydration. 3. Coronary artery disease with previous myocardial infarction and stent placement. Continue Plavix. 4. COPD. Continue Pulmicort. 5. Hypertension. Continue Norvasc. 6. History of CVA and multiple TIAs. 7. 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 8. BPH. Continue Flomax. 9. Hyperlipidemia. Continue Lipitor. 10. Chest x-ray with possible mild CHF. BNP level within normal limits on admission. Echocardiogram with Doppler obtained in August with preserved LV function. Continue Lasix. 11. Anxiety. Continue Xanax when necessary. 12. Gait dysfunction. Maintain fall precautions. Consult PT OT to help with discharge planning. 13. History of falls. 14. History of nicotine dependence. 15. Dysphagia. Modified diet per speech pathologist. 16. Headache suspect secondary to cervical strain. Obtain pain management consult for possible steroid injection. 15. DVT prophylaxis. Continue pneumatic compression sleeves and BEBE hose to bilateral lower extremities. 16. GI prophylaxis. Continue Pepcid. 17. Repeat CBC and BMP in a.m. The above impression and plan have been discussed and directed by Dr. Fraser. Judy PHAM acting as scribe for Dr. Fraser.
[2016-10-21 16:41] LABS: Glucose,Whole Blood 121 mg/dL (75-99)
[2016-10-21] MEDS: VANCOMYCIN 1,250 MG in SODIUM CHLORIDE 0.9% 250 ML IVPB SCH (18:49)
[2016-10-21 20:09] LABS: Glucose,Whole Blood 145 mg/dL (75-99)
[2016-10-22] MEDS: HYDROcodone/APAP 7.5-325MG 1 EACH TAB PO PRN ×4 (04:36→21:01)
[2016-10-22 04:47] LABS: Appearance,Urine Clear (Clear); Bilirubin,Urine Negative (Negative); Glucose,Urine (UA) Negative (Negative); Ketones,Urine Negative (Negative); Leukocyte Esterase,Urine Negative (Negative); Nitrite,Urine Negative (Negative); PH, Urine 6.5 (5.0-8.0); Protein,Urine Negative (Negative); Specific Gravity,Urine 1.009 (1.001-1.035); UA Billing (MACRO vs. MICRO) CHEM; Urobilinogen,Urine <2.0 mg/dL (<2.0)
--- NOTE | 2016-10-22 07:21 | PN ---
DATE OF SERVICE: 10/21/2016 Reason for followup is bacteremia and pneumonia. INTERVAL HISTORY: The patient is afebrile, has been complaining of headache. Overall, breathing has improved. Denies having any chest pain, occasional cough. Also no abdominal pain or any diarrhea. On examination, blood pressure 147/73 with a pulse of 91, temperature 98. He is 98% on 2 L nasal cannula. General description is an elderly male, up in the chair in no distress. RESPIRATORY SYSTEM: Unlabored breathing. Some coarse breath sounds at the base. No wheeze. HEART: S1, S2, regular rate and rhythm. ABDOMEN: Soft, no tenderness. LABS: Hemoglobin is 10.7, white count is down to 12.1 with a BUN of 24, creatinine 0.88. Blood cultures from 10/16 is now showing gram-negative bacilli, 10/18/2016 is alpha hemolytic strep. DIAGNOSTIC IMPRESSION AND PLAN: Patient with polymicrobial bacteremia usually contamination , in the patient mostly with respiratory symptoms. Sputum culture has been obtained, awaiting for them to be finalized. CT of the abdomen and pelvis will be obtained to make sure there is no abdominal source. Continue patient on Vanco and Zosyn at this point. Continue supportive care. MTDD
[2016-10-22 07:28] LABS: Glucose,Whole Blood 98 mg/dL (75-99)
[2016-10-22] MEDS: VANCOMYCIN 1,250 MG in SODIUM CHLORIDE 0.9% 250 ML IVPB SCH ×2 (07:33→22:04)
[2016-10-22] MEDS: ATORVASTATIN 40 MG TAB PO SCH (07:34)
[2016-10-22] MEDS: amLODIPine 5 MG TAB PO SCH (07:34)
[2016-10-22] MEDS: INSULIN LISPRO (humaLOG) 300 UNIT/3 ML VIAL SQ SCH ×4 (07:34→21:07)
[2016-10-22] MEDS: TAMSULOSIN 0.4 MG CAP.ER.24H PO SCH (07:35)
[2016-10-22] MEDS: FUROSEMIDE 20 MG TAB PO SCH (07:35)
[2016-10-22] MEDS: CLOPIDOGREL 75 MG TAB PO SCH (07:35)
[2016-10-22] MEDS: FAMOTIDINE 20 MG TAB PO SCH (07:35)
[2016-10-22] MEDS: predniSONE 20 MG TAB PO SCH (07:35)
[2016-10-22 08:49] LABS: Anisocytosis Slight; Basophils % (A) 0 %; CH 27.5; CHCM 31.4; Eosinophils # (A) 0.1 k/uL (0-0.7); Eosinophils % (A) 1 %; HDW 2.79; HGB 10.2 gm/dL (13.0-17.5); Hypochromasia Slight; Luc # (Auto) 0.13; Luc % (Auto) 1; Lymphocytes # (A) 0.5 k/uL (1.0-4.8); Lymphocytes % (A) 4 %; MCH 27.1 pg (25.0-35.0); MCHC 30.8 g/dL (31.0-37.0); MCV 88.2 fL (80.0-100.0); Monocytes # (A) 1.1 k/uL (0-1.0); Monocytes % (A) 7 %; Neutrophils # (A) 12.7 k/uL (1.3-7.7); Neutrophils % (A) 87 %; RBC 3.75 m/uL (4.30-5.90); RDW 16.2 % (11.5-15.5); WBC 14.6 k/uL (3.8-10.6); WBC (Perox) 15.34
[2016-10-22 09:04] LABS: Anion Gap 8 mmol/L; Blood Urea Nitrogen 35 mg/dL (9-20); Calcium 8.1 mg/dL (8.4-10.2); Carbon Dioxide 26 mmol/L (22-30); Chloride 105 mmol/L (98-107); Glucose 92 mg/dL (74-99); Non-African American GFR(MDRD) >60 (>60 ml/min/1.73 sqM); Potassium 4.5 mmol/L (3.5-5.1); Sodium 139 mmol/L (137-145)
[2016-10-22] MEDS: IPRATROPIUM-ALBUTEROL 3 ML NEB INHALATION SCH ×4 (09:45→20:15)
--- NOTE | 2016-10-22 10:18 | P.PN ---
Progress Note - Text 0855. Anesthesia POD OD 1. Patient is status post right TKR under spinal anesthesia with a right adductor canal catheter placed for postoperative pain relief. Catheter site is clean dry and intact and the patient's visual analog score is 4, 5 with 0.2% ropivacaine running at 10 mL per hour. Most of the patient's discomfort is in the posterior aspect of the knee.
--- NOTE | 2016-10-22 10:23 | XR ---
EXAMINATION TYPE: XR KUB DATE OF EXAM: 10/22/2016 10:18 AM COMPARISON: 02/18/2013 HISTORY: 85-year-old male retained contrast TECHNIQUE: Supine imaging FINDINGS: Extensive retained oral contrast material throughout the entire colon. This retained contrast outline s numerous colonic diverticula. Cholecystectomy clips are present. Nonobstructive bowel gas pattern. IMPRESSION: Extensive retained contrast material throughout the colon. Diverticulosis.
[2016-10-22] MEDS: PIPERACILLIN-TAZOBACTAM 3.375 GM in DEXTROSE/WATER 1 50ML.BAG IVPB SCH ×2 (11:01→15:59)
[2016-10-22 11:48] LABS: Glucose,Whole Blood 106 mg/dL (75-99)
--- NOTE | 2016-10-22 13:03 | P.PN ---
Subjective Patient is an 85-year-old male, patient of Dr. Dante Fraser in the outpatient setting with medical history significant for coronary artery disease , COPD, TIAs, CVA, early onset dementia, bilateral macular degeneration, hypertension, myocardial infarction with stent placements, pneumonia, BPH, hyperlipidemia, and gait dysfunction with history of falls. Patient was recently hospitalized in August when he presented with right cervical and right temporal pain suspect secondary to cervical strain and degenerative disc disease and non-Q-wave [place]. Patient underwent cardiac catheterization and was found to have moderate disease in the LAD and critical lesion in the distal circumflex and total occlusion of the RCA with stent placement of the circumflex. Patient was discharged home in stable condition. On this admission , patient presented to the emergency department with complaints of shortness of breath and cough. Chest x-ray with evidence of right basilar lung infiltrates; mild right-sided pleural effusion, and possibility of mild CHF. Patient did have a fever of 100.7 in the emergency department with heart rate of 121, oxygenating 90% on room air. Blood pressure on admission 201/84. Admission labs with evidence of leukocytosis, dehydration, and elevated plasma lactic acid venous. BNP level within normal limit. Patient was started on antibiotics according to pneumonia protocol, systemic steroids, and nebulized updraft treatments. Patient was admitted to the surgical unit with consult requested for pulmonology service. 10/17/2016: Upon examination, patient complains of chronic posterior neck pain radiating up into his head. Patient states he recently received steroid injections by Dr. Epstein with minimal relief. Patient states he's scheduled for more injections in about a week. Patient complains of productive cough. Patient complains of weakness and states his has to support him with ambulation at home. Patient denies chills, fevers, nausea, chest pain, or abdominal pain. Patient reports bilateral leg swelling for about a month. Patient reports decreased urine flow, denies dysuria or hematuria. Patient reports occasional constipation. Denies new skin lesions or rash. Patient currently is afebrile. Blood pressure 124/62. Oxygen saturation 95% on 3 L nasal cannula. 10/18/2016: Patient is examined on the surgical unit. Patient reports improvement in degree then. Patient complains of nonproductive cough. Patient has been up ambulating with physical therapy. Denies chills, fevers, nausea, chest pain, or abdominal pain. Bilateral leg swelling improved. Afebrile. WBC decreased to 19.5. Preliminary blood culture with gram-positive cocci in clusters. Chest x-ray with patchy right perihilar and right lower lobe infiltrate persist with small bilateral pleural effusion; slight interval improvement from yesterday. Oxygen saturation 95% on 3 L nasal cannula. 10/21/2016: Upon examination, patient is sitting up in a chair. Patient is complaining of temporal pain that is consistent with previous symptoms secondary to cervical strain. Patient denies shortness of breath. Denies chills, nausea, vomiting, chest pain, or abdominal pain. This x-ray from this morning with mild cardiomegaly with small bilateral pleural effusions and mild central vascular congestion with bibasilar infiltrate noted similar to prior x- ray. Patient is afebrile. 10/22/2016: Patient is evaluated on the surgical unit where he is currently laying in bed. reported that patient had a very rough night with increased confusion, attempting to pull off his gown and IV. Patient urinated all over himself this morning. states that patient did have a bowel movement this morning. states that patient's oral intake is minimal. Patient appears confused and is not a reliable historian. KUB x-ray from this morning shows extensive retained contrast material throughout the colon and evidence of diverticulosis. Patient remain afebrile. Hemodynamically stable. White count increased to 14.6. Urinalysis negative for infection. Preliminary sputum culture with gram-negative bacilli and Jazmine albicans. Infectious disease service and pulmonology service reviewed. Objective - Vital Signs Vital signs: Vital Signs Temp 97.6 F 10/22/16 07:00 Pulse 78 10/22/16 08:00 Resp 16 10/22/16 08:00 BP 134/76 10/22/16 07:00 Pulse Ox 92 L 10/22/16 07:00 Intake & Output 10/21/16 10/22/16 10/22/16 18:59 06:59 18:59 Intake Total 720 Output Total 500 52 Balance 720 -500 -52 Weight 69.56 kg 69.56 kg Intake: Oral 720 Output: Urine 500 50 Stool 2 Other: Voiding Method Urinal Urinal Urinal # Voids 1 1 # Bowel Movements 1 - Exam GENERAL: Pt is lethargic, well-nourished, appears in no acute distress. HEAD: Atraumatic, normocephalic. EYES: Pupils equal and round. ENT: Moist mucous membranes. NECK:Normal range of motion but painful with movement to right and left side, supple without lymphadenopathy or JVD. LUNGS: Breath sounds diminished with right basilar crackles. HEART: Heart S1, S2, no S3 or S4. Regular rate and rhythm. Systolic murmur. ABDOMEN: Soft, nontender, distended but easily compresses with palpation, normoactive bowel sounds. EXTREMITIES: 1+ peripheral pulses. No edema. No calf tenderness. NEUROLOGICAL: Pt oriented x 3. No focal deficits. Strength and sensation grossly intact. PSYCH: Anxious. SKIN: Warm, dry, intact. - Labs CBC & Chem 7: 10/22/16 08:24 10/22/16 08:24 Labs: Abnormal Lab Results - Last 24 Hours (Table) 10/21/16 10/21/16 10/22/16 Range/Units 16:38 20:08 08:24 WBC 14.6 H (3.8-10.6) k/uL RBC 3.75 L (4.30-5.90) m/uL Hgb 10.2 L (13.0-17.5) gm/dL Hct 33.0 L (39.0-53.0) % MCHC 30.8 L (31.0-37.0) g/dL RDW 16.2 H (11.5-15.5) % Neutrophils # 12.7 H (1.3-7.7) k/uL Lymphocytes # 0.5 L (1.0-4.8) k/uL Monocytes # 1.1 H (0-1.0) k/uL BUN (9-20) mg/dL POC Glucose (mg/dL) 121 H 145 H (75-99) mg/dL Calcium (8.4-10.2) mg/dL 10/22/16 10/22/16 Range/Units 08:24 11:40 WBC (3.8-10.6) k/uL RBC (4.30-5.90) m/uL Hgb (13.0-17.5) gm/dL Hct (39.0-53.0) % MCHC (31.0-37.0) g/dL RDW (11.5-15.5) % Neutrophils # (1.3-7.7) k/uL Lymphocytes # (1.0-4.8) k/uL Monocytes # (0-1.0) k/uL BUN 35 H (9-20) mg/dL POC Glucose (mg/dL) 106 H (75-99) mg/dL Calcium 8.1 L (8.4-10.2) mg/dL Microbiology - Last 24 Hours (Table) 10/20/16 08:25 Gram Stain - Preliminary Sputum Sputum Culture - Preliminary Gram Neg Bacilli Jazmine albicans 10/17/16 00:53 Blood Culture - Preliminary Blood No Growth after 120 hours 10/19/16 16:20 Blood Culture - Preliminary Blood No Growth after 48 hours 10/18/16 23:20 Blood Culture Gram Stain - Final Blood Blood Culture - Final Alpha Hemolytic Streptococcus Assessment and Plan Plan: Impression and plan: 1. Sepsis, present on admission, suspect secondary to right basilar lung infiltrates suggestive of pneumonia suspect aspiration. Gram-positive and gram- negative bacteremia, awaiting final cultures. Preliminary sputum culture with gram-negative bacilli and Jazmine albicans. Infectious disease consult requested, recommendations noted. Pulmonary consult in place, recommendations noted. Continue IV antibiotics. Continue supplemental oxygen. Continue systemic steroids. 2. Acute metabolic encephalopathy, multifactorial: suspect secondary to sleep deprivation, infection, and possible psychosis. 3. Acute hypoxia respiratory failure, present on admission. Continue supplemental oxygen to keep oxygen saturation greater than or equal to 88%. 2. Dehydration, present on admission. Continue IV hydration. 3. Coronary artery disease with previous myocardial infarction and stent placement. Continue Plavix. 4. COPD. Continue Pulmicort. 5. Hypertension. Continue Norvasc. 6. History of CVA and multiple TIAs. 7. 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 8. BPH. Continue Flomax. 9. Hyperlipidemia. Continue Lipitor. 10. Chest x-ray with possible mild CHF. BNP level within normal limits on admission. Echocardiogram with Doppler obtained in August with preserved LV function. Continue Lasix. 11. Anxiety. Continue Xanax when necessary. 12. Gait dysfunction. Maintain fall precautions. Consult PT OT to help with discharge planning. 13. History of falls. 14. History of nicotine dependence. 15. Dysphagia. Modified diet per speech pathologist. 16. Headache suspect secondary to cervical strain. Obtain pain management consult for possible steroid injection. 15. DVT prophylaxis. Continue pneumatic compression sleeves and BEBE hose to bilateral lower extremities. 16. GI prophylaxis. Continue Pepcid. 17. Repeat CBC and BMP in a.m. The above impression and plan have been discussed and directed by Dr. Fraser. Judy PHAM acting as scribe for Dr. Fraser.
[2016-10-22 16:48] LABS: Glucose,Whole Blood 132 mg/dL (75-99)
--- NOTE | 2016-10-22 17:25 | P.PN ---
Subjective Principal diagnosis: Aspiration pneumonia Patient seen and examined with his at bedside. The patient is much more sleepy today. Apparently he had a difficult night and was pulling out his IV and was not laying in bed. The patient does not sleep well last night. Objective - Vital Signs Vital signs: Vital Signs Temp 97.6 F 10/22/16 14:20 Pulse 90 10/22/16 15:54 Resp 16 10/22/16 14:20 BP 128/73 10/22/16 14:20 Pulse Ox 91 L 10/22/16 14:20 Intake & Output 10/21/16 10/22/16 10/22/16 18:59 06:59 18:59 Intake Total 720 200 Output Total 500 52 Balance 720 -500 148 Weight 69.56 kg 69.56 kg Intake: Oral 720 200 Output: Urine 500 50 Stool 2 Other: Voiding Method Urinal Urinal Urinal # Voids 1 1 # Bowel Movements 1 - Exam Gen.: Patient is alert and oriented 3 Cardiovascular: Regular rate and rhythm, S1/S2 Lungs: Diminished breath sounds bilaterally with right basilar crackles Abdomen: Soft nontender nondistended positive bowel sounds Extremities: No edema - Labs CBC & Chem 7: 10/22/16 08:24 10/22/16 08:24 Labs: Abnormal Lab Results - Last 24 Hours (Table) 10/21/16 10/22/16 10/22/16 Range/Units 20:08 08:24 08:24 WBC 14.6 H (3.8-10.6) k/uL RBC 3.75 L (4.30-5.90) m/uL Hgb 10.2 L (13.0-17.5) gm/dL Hct 33.0 L (39.0-53.0) % MCHC 30.8 L (31.0-37.0) g/dL RDW 16.2 H (11.5-15.5) % Neutrophils # 12.7 H (1.3-7.7) k/uL Lymphocytes # 0.5 L (1.0-4.8) k/uL Monocytes # 1.1 H (0-1.0) k/uL BUN 35 H (9-20) mg/dL POC Glucose (mg/dL) 145 H (75-99) mg/dL Calcium 8.1 L (8.4-10.2) mg/dL 10/22/16 10/22/16 Range/Units 11:40 16:37 WBC (3.8-10.6) k/uL RBC (4.30-5.90) m/uL Hgb (13.0-17.5) gm/dL Hct (39.0-53.0) % MCHC (31.0-37.0) g/dL RDW (11.5-15.5) % Neutrophils # (1.3-7.7) k/uL Lymphocytes # (1.0-4.8) k/uL Monocytes # (0-1.0) k/uL BUN (9-20) mg/dL POC Glucose (mg/dL) 106 H 132 H (75-99) mg/dL Calcium (8.4-10.2) mg/dL Microbiology - Last 24 Hours (Table) 10/20/16 08:25 Gram Stain - Preliminary Sputum Sputum Culture - Preliminary Gram Neg Bacilli Jazmine albicans 10/17/16 00:53 Blood Culture - Preliminary Blood No Growth after 120 hours 10/19/16 16:20 Blood Culture - Preliminary Blood No Growth after 48 hours Assessment and Plan Plan: Acute hypoxic respiratory failure Right lower lobe, aspiration pneumonia, gram-negative bacilli in sputum Gram-positive and gram-negative bacteremia, awaiting final cultures Sepsis Dysphagia History of COPD Dehydration History of coronary artery disease and previous stent placement Hypertension History of CVA Dyslipidemia Severe anxiety History of falls Chronic neck pain O2 to maintain saturation greater than equal to 88% Sputum culture Repeat blood cultures pending Influenza negative Antibiotics: Vancomycin, Clinda - per ID Pulmicort Bronchodilators Prednisone taper Modified diet per speech lung which pathology Decrease IV fluids DC planning for possible subacute rehab
[2016-10-22] MEDS: BUDESONIDE 0.5 MG/2 ML NEBU INHALATION PRN (20:15)
[2016-10-22 21:01] LABS: Glucose,Whole Blood 138 mg/dL (75-99)
[2016-10-22] MEDS: ALPRAZolam 0.25 MG TAB PO PRN (23:14)
[2016-10-22] MEDS: SODIUM CHLORIDE 0.9% 1,000 ML IV SCH (23:15)
[2016-10-23] MEDS: PIPERACILLIN-TAZOBACTAM 3.375 GM in DEXTROSE/WATER 1 50ML.BAG IVPB SCH ×3 (00:54→20:58)
--- NOTE | 2016-10-23 06:15 | PN ---
DATE OF SERVICE: 10/22/2016 Reason for followup is bacteremia and pneumonia. INTERVAL HISTORY: The patient is afebrile. He was sleepy at the time of evaluation. Apparently, the patient was more agitated last night and he pulled off his IV. No nausea or vomiting has been noticed or any diarrhea. On the KUB, he still noticed to have significant amount of contrast material. Hence, the CT has been put on hold. On examination, blood pressure is 113/61 with a pulse of 88, temperature 98.2. He is 94% on 2 L nasal cannula. General description is an elderly male, lying in bed in no distress. RESPIRATORY SYSTEM: Unlabored breathing with decreased breath sounds at the bases. No wheeze. HEART: S1, S2. Regular rate and rhythm. ABDOMEN: Soft, no tenderness. LABS: Hemoglobin is 10.2, white count is 14.6 with a BUN of 35, creatinine 0.82. Sputum now showing Gram-negative bacilli. The Gram-negative bacilli that was seen on the blood is still not identified. DIAGNOSTIC IMPRESSION AND PLAN: Patient with polymicrobial bacteremia with alpha hemolytic streptococcus as well as Gram-negative with question of possible pneumonia versus abdominal source. We are still waiting for the CT of the abdomen and pelvis and final ID of this Gram-negative both in the blood and the sputum. Continue the patient on Zosyn and Vanco at this point. Continue supportive care. MTDD
[2016-10-23 07:03] LABS: Glucose,Whole Blood 93 mg/dL (75-99)
[2016-10-23] MEDS: predniSONE 20 MG TAB PO SCH (07:47)
[2016-10-23] MEDS: HYDROcodone/APAP 7.5-325MG 1 EACH TAB PO PRN ×3 (07:47→17:11)
[2016-10-23] MEDS: TAMSULOSIN 0.4 MG CAP.ER.24H PO SCH (07:47)
[2016-10-23] MEDS: FUROSEMIDE 20 MG TAB PO SCH (07:48)
[2016-10-23] MEDS: ATORVASTATIN 40 MG TAB PO SCH (07:48)
[2016-10-23] MEDS: CLOPIDOGREL 75 MG TAB PO SCH (07:48)
[2016-10-23] MEDS: amLODIPine 5 MG TAB PO SCH (07:48)
[2016-10-23] MEDS: FAMOTIDINE 20 MG TAB PO SCH (07:48)
[2016-10-23 07:56] LABS: Anisocytosis Slight; Basophils % (A) 0 %; CH 27.7; Eosinophils # (A) 0.2 k/uL (0-0.7); Eosinophils % (A) 1 %; HCT 28.7 % (39.0-53.0); HDW 2.89; HGB 9.1 gm/dL (13.0-17.5); Hypochromasia Slight; Luc # (Auto) 0.13; Luc % (Auto) 1; Lymphocytes # (A) 0.7 k/uL (1.0-4.8); Lymphocytes % (A) 4 %; MCH 27.8 pg (25.0-35.0); MCHC 31.9 g/dL (31.0-37.0); MCV 87.2 fL (80.0-100.0); Mean Platelet Volume 7.9; Monocytes # (A) 1.1 k/uL (0-1.0); Monocytes % (A) 6 %; Neutrophils # (A) 15.6 k/uL (1.3-7.7); Neutrophils % (A) 88 %; RBC 3.29 m/uL (4.30-5.90); RDW 16.6 % (11.5-15.5); WBC 17.6 k/uL (3.8-10.6); WBC (Perox) 18.13
[2016-10-23] MEDS: INSULIN LISPRO (humaLOG) 300 UNIT/3 ML VIAL SQ SCH ×4 (08:03→22:26)
[2016-10-23 08:14] LABS: Anion Gap 7 mmol/L; Blood Urea Nitrogen 44 mg/dL (9-20); Calcium 8.1 mg/dL (8.4-10.2); Carbon Dioxide 27 mmol/L (22-30); Chloride 105 mmol/L (98-107); Glucose 90 mg/dL (74-99); Non-African American GFR(MDRD) >60 (>60 ml/min/1.73 sqM); Sodium 139 mmol/L (137-145)
--- NOTE | 2016-10-23 08:54 | XR ---
EXAMINATION TYPE: XR KUB DATE OF EXAM: 10/23/2016 8:37 AM CLINICAL HISTORY: Retained barium. TECHNIQUE: 2 supine KUB images of the abdomen are obtained. COMPARISON: Abdominal x-ray from yesterday. FINDINGS: Fecal material and contrast from recent swallow study is redemonstrated throughout the colo n extending from right colon through the rectum. Colonic diverticulosis most pronounced at sigmoid co lorri is again seen. Cholecystectomy clips are noted. Scattered gas is seen in nondistended small bowel loops. Small bilateral pleural effusions are redemonstrated. Emphysematous change of visualized lung bases i s again seen. Osseous structures are demineralized. There is multilevel spurring in the spine. There is moderate joint space loss in both hips. IMPRESSION: Retained colonic barium throughout the abdomen and pelvis without significant change from prior study .
[2016-10-23] MEDS: IPRATROPIUM-ALBUTEROL 3 ML NEB INHALATION SCH ×4 (09:07→19:36)
--- NOTE | 2016-10-23 11:36 | CT ---
EXAMINATION TYPE: CT discontinued procedure DATE OF EXAM: 10/21/2016 2:44 PM COMPARISON: NONE HISTORY: Discounted procedure due to barium in bowels. Fever rule out abscess. CT DLP: 0 mGycm Automated exposure control for dose reduction was used. FINDINGS: [place] image shows extensive retained barium throughout the colon. IMPRESSION: CT procedure was canceled due to above.
[2016-10-23 12:03] LABS: Glucose,Whole Blood 137 mg/dL (75-99)
--- NOTE | 2016-10-23 16:00 | P.PN ---
Subjective Principal diagnosis: Aspiration pneumonia Patient seen and examined with his at bedside. The patient's is very upset by pain management has not yet seen the patient. They are also refusing rehab at this time. The patient is confused and generally weak. Objective - Vital Signs Vital signs: Vital Signs Temp 97.6 F 10/23/16 15:00 Pulse 86 10/23/16 15:00 Resp 18 10/23/16 15:00 BP 106/49 10/23/16 15:00 Pulse Ox 94 L 10/23/16 15:00 Intake & Output 10/22/16 10/23/16 10/23/16 18:59 06:59 18:59 Intake Total 200 570 720 Output Total 52 700 Balance 148 -130 720 Weight 69.56 kg 76 kg Intake: Oral 200 570 720 Output: Urine 50 700 Stool 2 Other: Voiding Method Urinal Urinal Urinal # Voids 1 # Bowel Movements 1 - Exam Gen.: Patient is alert, confused Cardiovascular: Regular rate and rhythm, S1/S2 Lungs: Diminished breath sounds bilaterally with right basilar crackles Abdomen: Soft nontender nondistended positive bowel sounds Extremities: No edema - Labs CBC & Chem 7: 10/23/16 07:36 10/23/16 07:36 Labs: Abnormal Lab Results - Last 24 Hours (Table) 10/22/16 10/22/16 10/23/16 Range/Units 16:37 21:00 07:36 WBC 17.6 H (3.8-10.6) k/uL RBC 3.29 L (4.30-5.90) m/uL Hgb 9.1 L (13.0-17.5) gm/dL Hct 28.7 L (39.0-53.0) % RDW 16.6 H (11.5-15.5) % Neutrophils # 15.6 H (1.3-7.7) k/uL Lymphocytes # 0.7 L (1.0-4.8) k/uL Monocytes # 1.1 H (0-1.0) k/uL BUN (9-20) mg/dL POC Glucose (mg/dL) 132 H 138 H (75-99) mg/dL Calcium (8.4-10.2) mg/dL 10/23/16 10/23/16 Range/Units 07:36 11:43 WBC (3.8-10.6) k/uL RBC (4.30-5.90) m/uL Hgb (13.0-17.5) gm/dL Hct (39.0-53.0) % RDW (11.5-15.5) % Neutrophils # (1.3-7.7) k/uL Lymphocytes # (1.0-4.8) k/uL Monocytes # (0-1.0) k/uL BUN 44 H (9-20) mg/dL POC Glucose (mg/dL) 137 H (75-99) mg/dL Calcium 8.1 L (8.4-10.2) mg/dL Microbiology - Last 24 Hours (Table) 10/20/16 08:25 Gram Stain - Final Sputum Sputum Culture - Final Pseudomonas aeruginosa Jazmine albicans 10/17/16 00:53 Blood Culture - Final Blood No Growth after 144 hours 10/19/16 16:20 Blood Culture - Preliminary Blood No Growth after 72 hours Assessment and Plan Plan: Acute hypoxic respiratory failure Right lower lobe, aspiration pneumonia, gram-negative bacilli in sputum - pseudomonas Gram-positive and gram-negative bacteremia, alpha hemolytic strep, micrococcus sp. Sepsis Dysphagia History of COPD Dehydration History of coronary artery disease and previous stent placement Hypertension History of CVA Dyslipidemia Severe anxiety History of falls Chronic neck pain O2 to maintain saturation greater than equal to 88% Sputum culture Repeat blood cultures pending Influenza negative Antibiotics: Vancomycin, Clinda - per ID Pulmicort Bronchodilators Prednisone taper Modified diet per speech lung which pathology Decrease IV fluids DC planning for possible subacute rehab Consult neurology and pain management for neck/back pain issues GI and DVT prophylaxis
[2016-10-23] MEDS: ALPRAZolam 0.25 MG TAB PO PRN (16:28)
--- NOTE | 2016-10-23 16:39 | P.PN ---
Subjective Principal diagnosis: Pneumonia Patient is an 85-year-old male, patient of Dr. Dante Fraser in the outpatient setting with medical history significant for coronary artery disease , COPD, TIAs, CVA, early onset dementia, bilateral macular degeneration, hypertension, myocardial infarction with stent placements, pneumonia, BPH, hyperlipidemia, and gait dysfunction with history of falls. Patient was recently hospitalized in August when he presented with right cervical and right temporal pain suspect secondary to cervical strain and degenerative disc disease and non-Q-wave MO. Patient underwent cardiac catheterization and was found to have moderate disease in the LAD and critical lesion in the distal circumflex and total occlusion of the RCA with stent placement of the circumflex. Patient was discharged home in stable condition. On this admission , patient presented to the emergency department with complaints of shortness of breath and cough. Chest x-ray with evidence of right basilar lung infiltrates; mild right-sided pleural effusion, and possibility of mild CHF. Patient did have a fever of 100.7 in the emergency department with heart rate of 121, oxygenating 90% on room air. Blood pressure on admission 201/84. Admission labs with evidence of leukocytosis, dehydration, and elevated plasma lactic acid venous. BNP level within normal limit. Patient was started on antibiotics according to pneumonia protocol, systemic steroids, and nebulized updraft treatments. Patient was admitted to the surgical unit with consult requested for pulmonology service. 10/17/2016: Upon examination, patient complains of chronic posterior neck pain radiating up into his head. Patient states he recently received steroid injections by Dr. Epstein with minimal relief. Patient states he's scheduled for more injections in about a week. Patient complains of productive cough. Patient complains of weakness and states his has to support him with ambulation at home. Patient denies chills, fevers, nausea, chest pain, or abdominal pain. Patient reports bilateral leg swelling for about a month. Patient reports decreased urine flow, denies dysuria or hematuria. Patient reports occasional constipation. Denies new skin lesions or rash. Patient currently is afebrile. Blood pressure 124/62. Oxygen saturation 95% on 3 L nasal cannula. 10/18/2016: Patient is examined on the surgical unit. Patient reports improvement in degree then. Patient complains of nonproductive cough. Patient has been up ambulating with physical therapy. Denies chills, fevers, nausea, chest pain, or abdominal pain. Bilateral leg swelling improved. Afebrile. WBC decreased to 19.5. Preliminary blood culture with gram-positive cocci in clusters. Chest x-ray with patchy right perihilar and right lower lobe infiltrate persist with small bilateral pleural effusion; slight interval improvement from yesterday. Oxygen saturation 95% on 3 L nasal cannula. 10/21/2016: Upon examination, patient is sitting up in a chair. Patient is complaining of temporal pain that is consistent with previous symptoms secondary to cervical strain. Patient denies shortness of breath. Denies chills, nausea, vomiting, chest pain, or abdominal pain. This x-ray from this morning with mild cardiomegaly with small bilateral pleural effusions and mild central vascular congestion with bibasilar infiltrate noted similar to prior x- ray. Patient is afebrile. 10/22/2016: Patient is evaluated on the surgical unit where he is currently laying in bed. reported that patient had a very rough night with increased confusion, attempting to pull off his gown and IV. Patient urinated all over himself this morning. states that patient did have a bowel movement this morning. states that patient's oral intake is minimal. Patient appears confused and is not a reliable historian. KUB x-ray from this morning shows extensive retained contrast material throughout the colon and evidence of diverticulosis. Patient remain afebrile. Hemodynamically stable. White count increased to 14.6. Urinalysis negative for infection. Preliminary sputum culture with gram-negative bacilli and Jazmine albicans. Infectious disease service and pulmonology service reviewed. 10/23/2016: Patient is reevaluated on surgical unit where he is currently lying in bed. reports that patient had a better night than the previous night. Patient's reports that patient ate better this morning and yesterday. Patient did have an episode of fecal incontinence. Patient remains slightly confused and is not a reliable historian. Repeat KUB x-ray from this morning with evidence of persistent retained contrast material throughout the colon and evidence of diverticulosis. Final sputum culture positive for Pseudomonas aeruginosa and Jazmine albicans. Afebrile. Hemodynamically stable. White count increased to 17.6. Infectious disease service and pulmonary service notes reviewed. Objective - Vital Signs Vital signs: Vital Signs Temp 97.6 F 10/23/16 15:00 Pulse 86 10/23/16 15:00 Resp 18 10/23/16 15:00 BP 106/49 10/23/16 15:00 Pulse Ox 94 L 10/23/16 15:00 Intake & Output 10/22/16 10/23/16 10/23/16 18:59 06:59 18:59 Intake Total 200 570 720 Output Total 52 700 Balance 148 -130 720 Weight 69.56 kg 76 kg Intake: Oral 200 570 720 Output: Urine 50 700 Stool 2 Other: Voiding Method Urinal Urinal Urinal # Voids 1 # Bowel Movements 1 - Exam GENERAL: Pt is lethargic, well-nourished, appears in no acute distress. HEAD: Atraumatic, normocephalic. EYES: Pupils equal and round. ENT: Moist mucous membranes. NECK:Normal range of motion but painful with movement to right and left side, supple without lymphadenopathy or JVD. LUNGS: Breath sounds diminished with right basilar crackles. HEART: Heart S1, S2, no S3 or S4. Regular rate and rhythm. Systolic murmur. ABDOMEN: Soft, nontender, distended but easily compresses with palpation, normoactive bowel sounds. EXTREMITIES: 1+ peripheral pulses. No edema. No calf tenderness. NEUROLOGICAL: Pt oriented x 2. No focal deficits. Strength and sensation grossly intact. PSYCH: Calm. SKIN: Warm, dry, intact. - Labs CBC & Chem 7: 10/23/16 07:36 10/23/16 07:36 Labs: Abnormal Lab Results - Last 24 Hours (Table) 10/22/16 10/22/16 10/23/16 Range/Units 16:37 21:00 07:36 WBC 17.6 H (3.8-10.6) k/uL RBC 3.29 L (4.30-5.90) m/uL Hgb 9.1 L (13.0-17.5) gm/dL Hct 28.7 L (39.0-53.0) % RDW 16.6 H (11.5-15.5) % Neutrophils # 15.6 H (1.3-7.7) k/uL Lymphocytes # 0.7 L (1.0-4.8) k/uL Monocytes # 1.1 H (0-1.0) k/uL BUN (9-20) mg/dL POC Glucose (mg/dL) 132 H 138 H (75-99) mg/dL Calcium (8.4-10.2) mg/dL 10/23/16 10/23/16 Range/Units 07:36 11:43 WBC (3.8-10.6) k/uL RBC (4.30-5.90) m/uL Hgb (13.0-17.5) gm/dL Hct (39.0-53.0) % RDW (11.5-15.5) % Neutrophils # (1.3-7.7) k/uL Lymphocytes # (1.0-4.8) k/uL Monocytes # (0-1.0) k/uL BUN 44 H (9-20) mg/dL POC Glucose (mg/dL) 137 H (75-99) mg/dL Calcium 8.1 L (8.4-10.2) mg/dL Microbiology - Last 24 Hours (Table) 10/20/16 08:25 Gram Stain - Final Sputum Sputum Culture - Final Pseudomonas aeruginosa Jazmine albicans 10/17/16 00:53 Blood Culture - Final Blood No Growth after 144 hours 10/19/16 16:20 Blood Culture - Preliminary Blood No Growth after 72 hours Assessment and Plan Plan: Impression and plan: 1. Sepsis, present on admission, suspect secondary to right basilar lung infiltrates suggestive of pneumonia suspect aspiration. Gram-positive and gram- negative bacteremia, awaiting final cultures. Final sputum culture positive for Pseudomonas on [place] and Jazmine albicans. Infectious disease consult requested, recommendations noted. Pulmonary consult in place, recommendations noted. Continue IV antibiotics. Continue supplemental oxygen. Continue systemic steroids. 2. Acute metabolic encephalopathy, multifactorial: suspect secondary to sleep deprivation, infection, and possible psychosis. 3. Acute hypoxia respiratory failure, present on admission. Continue supplemental oxygen to keep oxygen saturation greater than or equal to 88%. 2. Dehydration, present on admission. Continue IV hydration. 3. Coronary artery disease with previous myocardial infarction and stent placement. Continue Plavix. 4. COPD. Continue Pulmicort. 5. Hypertension. Continue Norvasc. 6. History of CVA and multiple TIAs. 7. 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 8. BPH. Continue Flomax. 9. Hyperlipidemia. Continue Lipitor. 10. Chest x-ray with possible mild CHF. BNP level within normal limits on admission. Echocardiogram with Doppler obtained in August with preserved LV function. Continue Lasix. 11. Anxiety. Continue Xanax when necessary. 12. Gait dysfunction. Maintain fall precautions. Consult PT OT to help with discharge planning. 13. History of falls. 14. History of nicotine dependence. 15. Dysphagia. Modified diet per speech pathologist. 16. Headache suspect secondary to cervical strain. Obtain pain management consult for possible steroid injection. 15. DVT prophylaxis. Continue pneumatic compression sleeves and BEBE hose to bilateral lower extremities. 16. GI prophylaxis. Continue Pepcid. 17. Repeat CBC and BMP in a.m. The above impression and plan have been discussed and directed by Dr. Fraser. Judy PHAM acting as scribe for Dr. Fraser.
[2016-10-23 16:55] LABS: Glucose,Whole Blood 178 mg/dL (75-99)
[2016-10-23] MEDS: VANCOMYCIN 1,250 MG in SODIUM CHLORIDE 0.9% 250 ML IVPB SCH (17:35)
--- NOTE | 2016-10-23 19:31 | P.CNNES ---
History of Present Illness Consult date: 10/23/16 Reason for Consult: Patient to be evaluated for occipital neuritis. History of Present Illness: This patient is a 85-year-old right-handed white male who was admitted to Hospital on 10/16/2016 for treatment of acute hypoxic respiratory failure and sepsis. Patient was admitted to hospital and was diagnosed with right lower lobe aspiration pneumonia. He is being treated with multiple antibiotics. Patient has a history of occipital neuritis in the past and has had worsening symptoms of head and neck pain recently. He was scheduled to be seen in the pain clinic tomorrow but due to his hospitalization this is not possible. He does complain of bilateral occipital nerve pain. It radiates from the back of his neck to the temporal areas bilaterally. He rates the pain intensity as 8/ 10 most of the time. The patient did undergo previous occipital nerve block procedure. We will try to arrange this for him now through the pain management at the hospital. Patient has a history of early dementia and remains relatively stable at this time. He did demonstrate signs of metabolic encephalopathy initially on admission secondary to sepsis. We will continue close neurological follow-up with the patient during this admission. We will obtain a consultation with anesthesia for bilateral occipital nerve block procedure to be done for him tomorrow morning. So overall prognosis at this time remains guarded. Review of Systems Constitutional: Denies chills, Denies fever Eyes: denies blurred vision, denies pain Ears, nose, mouth and throat: Denies headache, Denies sore throat Cardiovascular: Denies chest pain, Denies shortness of breath Respiratory: Denies cough Gastrointestinal: Denies abdominal pain, Denies diarrhea, Denies nausea, Denies vomiting Musculoskeletal: Denies myalgias Integumentary: Denies pruritus, Denies rash Neurological: Reports confusion, Reports headaches, Denies numbness, Denies weakness Psychiatric: Denies anxiety, Denies depression Endocrine: Denies fatigue, Denies weight change Past Medical History Past Medical History: Coronary Artery Disease (CAD), Heart Failure, COPD, CVA/ TIA, Dementia, Eye Disorder, Hypertension, Myocardial Infarction (NM), Pneumonia , Prostate Disorder Additional Past Medical History / Comment(s): Recent UTI-completed ABX, several TIAs, CVA- R leg affected alittle, BPH, glaucoma-one wet and one dry, pancreatitis, unsteady on his feet, allergies that cause his skin to itch- vinegar/tomatoes/dairy, very limited vision. Last Myocardial Infarction Date:: August 2016 History of Any Multi-Drug Resistant Organisms: None Reported Past Surgical History: Appendectomy, Cholecystectomy, Heart Catheterization With Stent Additional Past Surgical History / Comment(s): 03/2014 PCI with 1 stent, August 2016 stent to circumflex, left carotid, cataract surgery, deviated septum sx, cataracts removed bilaterally with lens implants, colonoscopy with benign polypectomy, L eye injection Past Anesthesia/Blood Transfusion Reactions: No Reported Reaction Date of Last Stent Placement:: 03/2014 Past Psychological History: Anxiety Additional Psychological History / Comment(s): Pt resides with his spouse. Pt uses walker . He has an unsteady gait and has had falls. He has very poor vision. His assists him with many things. Smoking Status: Never smoker Past Alcohol Use History: None Reported Additional Past Alcohol Use History / Comment(s): Pt states he started smoking at age 14 yrs and quit in 2009. He was mostly a pipe smoker and did smoke cigarettes the last few yrs that he smoked. Past Drug Use History: None Reported - Past Family History Mother Family Medical History: Congestive Heart Failure (CHF), Myocardial Infarction ( NM) Additional Family Medical History / Comment(s): Mother at 94 yrs. Father Family Medical History: Myocardial Infarction (NM) Additional Family Medical History / Comment(s): of NM in his 60's Medications and Allergies Home Medications Medication Instructions Recorded Confirmed Type Tamsulosin HCl [Flomax] 0.4 mg PO DAILY 04/05/16 10/16/16 History Budesonide [Pulmicort] 0.5 mg INHALATION RT-BID PRN 09/27/16 10/16/16 History HYDROcodone/APAP 7.5-325MG [[place] 1 tab PO Q4H PRN 09/27/16 10/16/16 History 7.5-325] Allergies Allergy/AdvReac Type Severity Reaction Status Date / Time ciprofloxacin [From Cipro] Allergy Mild Hives Verified 10/16/16 23:13 ciprofloxacin HCl Allergy Mild Hives Verified 10/16/16 23:13 [From Cipro] acetic acid Allergy Rash/Hives Verified 09/27/16 18:12 [From [place] Vinegar and Water] egg Allergy Unknown Verified 09/27/16 18:12 tomato Allergy Rash/Hives Verified 09/27/16 18:12 methylprednisolone AdvReac Severe Abdominal Verified 10/16/16 23:13 [From Medrol] Pain Physical Examination - Vital Signs Vital Signs: Vital Signs Temp Pulse Pulse Pulse Resp BP Pulse Ox 10/23/16 15:00 97.6 F 86 18 106/49 94 L 10/23/16 12:52 84 10/23/16 12:41 84 10/23/16 09:16 92 10/23/16 09:07 92 10/23/16 08:00 15 10/23/16 07:00 98 F 78 15 152/82 94 L 10/23/16 04:00 97.0 F L 83 18 137/77 94 L 10/23/16 00:00 97.0 F L 87 18 124/67 10/22/16 20:29 90 10/22/16 20:16 88 10/22/16 20:00 75 18 Intake and Output 10/23/16 10/23/16 10/23/16 06:59 14:59 22:59 Intake Total 450 1130 50 Output Total 300 Balance 150 1130 50 Intake: Intake, IV Titration 210 Amount Piperacillin-Tazobactam 3 50 .375 gm In Dextrose/Water 1 50ml.bag @ 12.5 mls/hr IVPB Q8HR [facility] Rx#: [id number] Sodium Chloride 0.9% 1, 160 000 ml @ 20 mls/hr IV . Q24H [facility] Rx#:[id number] Oral 450 920 50 Output: Urine 300 Other: Voiding Method Urinal Urinal # Voids 3 Weight 76 kg - Constitutional General appearance: average body habitus, cooperative - EENT EENT: mucous membranes moist - Respiratory Respiratory: lungs clear, normal breath sounds - Cardiovascular Cardiovascular: regular rate, normal S1, normal S2 Extremities: no peripheral edema bilaterally - Gastrointestinal Gastrointestinal: normoactive bowel sounds - Integumentary Integumentary: normal - Neurologic Cranial nerve examination: PERRL, EOMI, VFF, V1/V2/V3 grossly intact, face symmetric, tongue midline, intact gag reflex, intact corneal reflex, normal palatal elevation Speech examination: intact Sensorimotor examination: intact Motor examination - right side: 4/5: biceps, triceps, wrist flexion, wrist extension, anesthesiologist assistant certified, hip flexors, knee extensors, dorsiflexion, toe extension (EHL) , plantarflexion Motor examination - left side: 4/5: biceps, triceps, wrist flexion, wrist extension, anesthesiologist assistant certified, hip flexors, knee extensors, dorsiflexion, toe extension (EHL) , plantarflexion Detailed sensory examination: intact Reflex and gait examination: intact Reflexes: 1+: ankle, bicep - Musculoskeletal Musculoskeletal: no pain - Psychiatric Psychiatric: mood/affect appropriate, cooperative Results - Laboratory Findings CBC and BMP: 10/23/16 07:36 10/23/16 07:36 Abnormal Lab Findings: Abnormal Labs 10/17/16 10/17/16 10/17/16 06:58 11:36 16:35 WBC RBC Hgb Hct MCHC RDW Neutrophils # Lymphocytes # Monocytes # BUN Glucose POC Glucose (mg/dL) 167 H 143 H 136 H Calcium 10/17/16 10/18/16 10/18/16 21:23 06:41 06:41 WBC 19.5 H RBC 3.83 L Hgb 10.5 L Hct 34.2 L MCHC 30.7 L RDW 16.2 H Neutrophils # 18.7 H Lymphocytes # 0.3 L Monocytes # BUN 21 H Glucose 151 H POC Glucose (mg/dL) 146 H Calcium 10/18/16 10/18/16 10/18/16 07:07 11:37 16:34 WBC RBC Hgb Hct MCHC RDW Neutrophils # Lymphocytes # Monocytes # BUN Glucose POC Glucose (mg/dL) 146 H 130 H 116 H Calcium 10/18/16 10/19/16 10/19/16 21:08 06:30 06:30 WBC 16.7 H RBC 3.88 L Hgb 10.6 L Hct 34.6 L MCHC 30.5 L RDW 16.1 H Neutrophils # 15.7 H Lymphocytes # 0.2 L Monocytes # BUN 26 H Glucose 131 H POC Glucose (mg/dL) 125 H Calcium 10/19/16 10/19/16 10/19/16 06:37 11:13 17:08 WBC RBC Hgb Hct MCHC RDW Neutrophils # Lymphocytes # Monocytes # BUN Glucose POC Glucose (mg/dL) 125 H 136 H 122 H Calcium 10/19/16 10/20/16 10/20/16 19:51 06:30 06:30 WBC 14.1 H RBC 3.85 L Hgb 10.5 L Hct 34.2 L MCHC 30.8 L RDW 16.3 H Neutrophils # 13.1 H Lymphocytes # 0.2 L Monocytes # BUN 25 H Glucose 135 H POC Glucose (mg/dL) 120 H Calcium 10/20/16 10/20/16 10/20/16 06:58 11:33 16:49 WBC RBC Hgb Hct MCHC RDW Neutrophils # Lymphocytes # Monocytes # BUN Glucose POC Glucose (mg/dL) 125 H 121 H 116 H Calcium 10/20/16 10/21/16 10/21/16 20:38 06:16 06:16 WBC 12.1 H RBC 3.91 L Hgb 10.7 L Hct 34.2 L MCHC RDW 16.1 H Neutrophils # 11.3 H Lymphocytes # 0.2 L Monocytes # BUN 24 H Glucose 131 H POC Glucose (mg/dL) 116 H Calcium 10/21/16 10/21/16 10/21/16 07:15 11:35 16:38 WBC RBC Hgb Hct MCHC RDW Neutrophils # Lymphocytes # Monocytes # BUN Glucose POC Glucose (mg/dL) 121 H 109 H 121 H Calcium 10/21/16 10/22/16 10/22/16 20:08 08:24 08:24 WBC 14.6 H RBC 3.75 L Hgb 10.2 L Hct 33.0 L MCHC 30.8 L RDW 16.2 H Neutrophils # 12.7 H Lymphocytes # 0.5 L Monocytes # 1.1 H BUN 35 H Glucose POC Glucose (mg/dL) 145 H Calcium 8.1 L 10/22/16 10/22/16 10/22/16 11:40 16:37 21:00 WBC RBC Hgb Hct MCHC RDW Neutrophils # Lymphocytes # Monocytes # BUN Glucose POC Glucose (mg/dL) 106 H 132 H 138 H Calcium 10/23/16 10/23/16 10/23/16 07:36 07:36 11:43 WBC 17.6 H RBC 3.29 L Hgb 9.1 L Hct 28.7 L MCHC RDW 16.6 H Neutrophils # 15.6 H Lymphocytes # 0.7 L Monocytes # 1.1 H BUN 44 H Glucose POC Glucose (mg/dL) 137 H Calcium 8.1 L 10/23/16 16:43 WBC RBC Hgb Hct MCHC RDW Neutrophils # Lymphocytes # Monocytes # BUN Glucose POC Glucose (mg/dL) 178 H Calcium Assessment and Plan (1) Occipital neuritis Status: Acute Code(s): M54.81 - OCCIPITAL NEURALGIA Plan: Patient has evidence of bilateral occipital neuritis today on examination. We have recommended the patient undergo a bilateral occipital nerve block procedure with anesthesia. This will be arranged for him for tomorrow morning. He is being treated for underlying sepsis and pneumonia. We will continue to follow his progress closely during this admission. Case was discussed at length with the patient and his at bedside. All of their questions were answered. His overall prognosis at this time remains guarded. Time with Patient: Greater than 30
[2016-10-23] MEDS: BUDESONIDE 0.5 MG/2 ML NEBU INHALATION PRN (19:36)
[2016-10-23] MEDS: traMADol 50 MG TAB PO PRN (20:56)
[2016-10-23 21:06] LABS: Glucose,Whole Blood 164 mg/dL (75-99)
[2016-10-24] MEDS: traMADol 50 MG TAB PO PRN ×4 (02:18→21:05)
[2016-10-24] MEDS: PIPERACILLIN-TAZOBACTAM 3.375 GM in DEXTROSE/WATER 1 50ML.BAG IVPB SCH ×3 (02:18→19:21)
[2016-10-24] MEDS: SODIUM CHLORIDE 0.9% 1,000 ML IV SCH (02:20)
[2016-10-24] MEDS ORDERED: VANCOMYCIN TROUGH DUE 1 EACH MISC MISCELLANE ONE (06:00)
[2016-10-24 06:47] LABS: Anisocytosis Slight; Basophils % (A) 0 %; CH 27.4; CHCM 31.2; Eosinophils # (A) 0.1 k/uL (0-0.7); Eosinophils % (A) 0 %; HCT 26.6 % (39.0-53.0); HGB 8.1 gm/dL (13.0-17.5); Hypochromasia Slight; Luc # (Auto) 0.17; Luc % (Auto) 1; Lymphocytes # (A) 0.8 k/uL (1.0-4.8); Lymphocytes % (A) 4 %; MCHC 30.6 g/dL (31.0-37.0); MCV 88.5 fL (80.0-100.0); Mean Platelet Volume 7.5; Monocytes # (A) 1.1 k/uL (0-1.0); Monocytes % (A) 6 %; Neutrophils # (A) 16.3 k/uL (1.3-7.7); Neutrophils % (A) 89 %; RBC 3.01 m/uL (4.30-5.90); RDW 16.5 % (11.5-15.5); WBC 18.4 k/uL (3.8-10.6); WBC (Perox) 19.68
[2016-10-24 07:01] LABS: Anion Gap 6 mmol/L; Blood Urea Nitrogen 33 mg/dL (9-20); Calcium 7.9 mg/dL (8.4-10.2); Carbon Dioxide 30 mmol/L (22-30); Chloride 103 mmol/L (98-107); Glucose 95 mg/dL (74-99); Non-African American GFR(MDRD) >60 (>60 ml/min/1.73 sqM); Sodium 139 mmol/L (137-145)
[2016-10-24 07:21] LABS: Glucose,Whole Blood 107 mg/dL (75-99)
[2016-10-24] MEDS: BUDESONIDE 0.5 MG/2 ML NEBU INHALATION PRN ×2 (07:29→21:05)
[2016-10-24] MEDS: IPRATROPIUM-ALBUTEROL 3 ML NEB INHALATION SCH ×4 (07:29→21:06)
--- NOTE | 2016-10-24 07:29 | PN ---
DATE OF SERVICE: 10/23/2016 Reason for followup is bacteremia and pseudomonas pneumonia. INTERVAL HISTORY: The patient is afebrile. He seemed to more awake and alert today. He has not been breathing comfortably. No nausea or vomiting has been noticed or any diarrhea. On examination, blood pressure 106/49 with a pulse of 86, temperature 97.6. He is 94% on 2 L nasal cannula. General description is an elderly male, lying in bed in no distress. RESPIRATORY SYSTEM: Unlabored breathing. Decreased breath sounds at the bases. No wheeze. HEART: S1, S2. Regular rate and rhythm. ABDOMEN: Soft, no tenderness. EXTREMITIES: No edema of the feet. LABS: Hemoglobin 9.1, white count 17.6 with a BUN of 44, creatinine 0.90. Sputum with Pseudomonas aeruginosa sensitive to Zosyn, the patient is already on. Blood culture positive for alpha hemolytic Streptococcus with a follow up blood culture on 10/19 has been negative. KUB did show retained contrast and CT was not done. DIAGNOSTIC IMPRESSION AND PLAN: Patient with polymicrobial bacteremia. Initially, blood culture was reported positive for a Gram-negative, however, that has been changed to micrococcus. Repeat was a Streptococcus; 10/19 has been negative so far. Sputum is a pseudomonas. The patient likely has aspiration pneumonia currently on Zosyn, that will be continued. If no Gram-positive discontinue the vancomycin . Await the CT of abdomen and pelvis to be completed to make sure no evidence of any abscess. was present at beside. Their questions and concerns were answered. HAMIDA
[2016-10-24] MEDS ORDERED: HYDROmorphone 1 MG/ML 1 ML SYRINGE IVP PRN (08:30)
[2016-10-24] MEDS: INSULIN LISPRO (humaLOG) 300 UNIT/3 ML VIAL SQ SCH ×4 (08:39→20:58)
[2016-10-24] MEDS: VANCOMYCIN 1,250 MG in SODIUM CHLORIDE 0.9% 250 ML IVPB SCH (08:39)
[2016-10-24] MEDS: ENOXAPARIN 40 MG/0.4 ML SYRINGE SQ SCH ×2 (08:54→12:11)
[2016-10-24] MEDS: CLOPIDOGREL 75 MG TAB PO SCH ×2 (08:54→12:12)
[2016-10-24] MEDS: TAMSULOSIN 0.4 MG CAP.ER.24H PO SCH (09:06)
[2016-10-24] MEDS: ATORVASTATIN 40 MG TAB PO SCH (09:06)
[2016-10-24] MEDS: amLODIPine 5 MG TAB PO SCH (09:07)
[2016-10-24] MEDS: FAMOTIDINE 20 MG TAB PO SCH (09:07)
[2016-10-24] MEDS: FUROSEMIDE 20 MG TAB PO SCH (09:07)
[2016-10-24] MEDS: predniSONE 20 MG TAB PO SCH (09:07)
--- NOTE | 2016-10-24 10:38 | XR ---
EXAMINATION TYPE: XR KUB DATE OF EXAM: 10/24/2016 10:17 AM COMPARISON: 10/23/2016 INDICATION: Residual barium TECHNIQUE: Single view abdomen supine view FINDINGS: There is a normal bowel gas pattern. Psoas margins are normal. No organomegaly is present. Cholecystectomy clips are in the right upper quadrant. Contrast is present within the colon. This is slightly diminished over the interval but appears to remain present throughout the ascending transver se descending and sigmoid colon. Some diverticular changes are present. IMPRESSION: 1. Persistent contrast within the colon.
[2016-10-24] MEDS ORDERED: BUPIVACAINE (PF) 0.5% 30 ML VIAL MISCELLANE ONE (11:28)
[2016-10-24] MEDS ORDERED: methylPREDNISolone ACETATE 40 MG/ML 1 ML VIAL INJ ONE (11:28)
--- NOTE | 2016-10-24 12:14 | P.PCN ---
Date of Procedure: 10/24/16 Procedure(s) Performed: Pre-operative diagnosis: 1- Bilateral occipital neuralgea Post Operative Diagnosis 1- Bilateral occipital neuralgea Procedure: 1- Bilateral occipital nerve block ANESTHESIA: none EBL: Minimal PROCEDURE INDICATION: The patient with neck pain and headache secondary to occipital neuralgea unresponsive to conservative treatments. Patient was admitted to [facility] and he was evaluated by neurologist , and he recommended occipital nerve block PROCEDURE DESCRIPTION / TECHNIQUE: The patient was seen and identified in the preoperative area. Risks, benefits, complications, and alternatives were discussed with the patient, the patient agreed to proceed with the procedure and signed the consent. IV was started. Vital signs remained stable throughout the procedure. Patient was taken to the OR and time out was completed. The patient was placed in the pron (sitting ) position on the procedure table. A pillow was placed under the patients chest to increase the cervical interlaminar space. The cervical area and right occiptial area were prepped with alcohol swab. Critical pause was taken. Vital signs were closely monitored during the procedure. Conscious sedation was used during the procedure to decrease patients anxiety. The right occiptal ridge was palpated and was then accessed with a 25 G needle. Then after negative aspiration, 6 ml of the block solution containing 6 ml of PF Buvicaine 0.5% and Kenalog 20 mg was injected. Needle was withdrawn intact. Then the same procedure was repeated on the left side and related the left occipital nerve block, after negative aspiration 6 mL of the block solution containing ropivacaine 0.5% and 20 mg of Kenalog injected after negative aspiration Patient tolerated procedure well. No acute complications.
[2016-10-24 12:21] LABS: Glucose,Whole Blood 144 mg/dL (75-99)
--- NOTE | 2016-10-24 16:47 | P.PN ---
Subjective Principal diagnosis: Pneumonia Patient is an 85-year-old male, patient of Dr. Dante Fraser in the outpatient setting with medical history significant for coronary artery disease , COPD, TIAs, CVA, early onset dementia, bilateral macular degeneration, hypertension, myocardial infarction with stent placements, pneumonia, BPH, hyperlipidemia, and gait dysfunction with history of falls. Patient was recently hospitalized in August when he presented with right cervical and right temporal pain suspect secondary to cervical strain and degenerative disc disease and non-Q-wave GA. Patient underwent cardiac catheterization and was found to have moderate disease in the LAD and critical lesion in the distal circumflex and total occlusion of the RCA with stent placement of the circumflex. Patient was discharged home in stable condition. On this admission , patient presented to the emergency department with complaints of shortness of breath and cough. Chest x-ray with evidence of right basilar lung infiltrates; mild right-sided pleural effusion, and possibility of mild CHF. Patient did have a fever of 100.7 in the emergency department with heart rate of 121, oxygenating 90% on room air. Blood pressure on admission 201/84. Admission labs with evidence of leukocytosis, dehydration, and elevated plasma lactic acid venous. BNP level within normal limit. Patient was started on antibiotics according to pneumonia protocol, systemic steroids, and nebulized updraft treatments. Patient was admitted to the surgical unit with consult requested for pulmonology service. 10/17/2016: Upon examination, patient complains of chronic posterior neck pain radiating up into his head. Patient states he recently received steroid injections by Dr. Epstein with minimal relief. Patient states he's scheduled for more injections in about a week. Patient complains of productive cough. Patient complains of weakness and states his has to support him with ambulation at home. Patient denies chills, fevers, nausea, chest pain, or abdominal pain. Patient reports bilateral leg swelling for about a month. Patient reports decreased urine flow, denies dysuria or hematuria. Patient reports occasional constipation. Denies new skin lesions or rash. Patient currently is afebrile. Blood pressure 124/62. Oxygen saturation 95% on 3 L nasal cannula. 10/18/2016: Patient is examined on the surgical unit. Patient reports improvement in degree then. Patient complains of nonproductive cough. Patient has been up ambulating with physical therapy. Denies chills, fevers, nausea, chest pain, or abdominal pain. Bilateral leg swelling improved. Afebrile. WBC decreased to 19.5. Preliminary blood culture with gram-positive cocci in clusters. Chest x-ray with patchy right perihilar and right lower lobe infiltrate persist with small bilateral pleural effusion; slight interval improvement from yesterday. Oxygen saturation 95% on 3 L nasal cannula. 10/21/2016: Upon examination, patient is sitting up in a chair. Patient is complaining of temporal pain that is consistent with previous symptoms secondary to cervical strain. Patient denies shortness of breath. Denies chills, nausea, vomiting, chest pain, or abdominal pain. This x-ray from this morning with mild cardiomegaly with small bilateral pleural effusions and mild central vascular congestion with bibasilar infiltrate noted similar to prior x- ray. Patient is afebrile. 10/22/2016: Patient is evaluated on the surgical unit where he is currently laying in bed. reported that patient had a very rough night with increased confusion, attempting to pull off his gown and IV. Patient urinated all over himself this morning. states that patient did have a bowel movement this morning. states that patient's oral intake is minimal. Patient appears confused and is not a reliable historian. KUB x-ray from this morning shows extensive retained contrast material throughout the colon and evidence of diverticulosis. Patient remain afebrile. Hemodynamically stable. White count increased to 14.6. Urinalysis negative for infection. Preliminary sputum culture with gram-negative bacilli and Jazmine albicans. Infectious disease service and pulmonology service reviewed. 10/23/2016: Patient is reevaluated on surgical unit where he is currently lying in bed. reports that patient had a better night than the previous night. Patient's reports that patient ate better this morning and yesterday. Patient did have an episode of fecal incontinence. Patient remains slightly confused and is not a reliable historian. Repeat KUB x-ray from this morning with evidence of persistent retained contrast material throughout the colon and evidence of diverticulosis. Final sputum culture positive for Pseudomonas aeruginosa and Jazmine albicans. Afebrile. Hemodynamically stable. White count increased to 17.6. Infectious disease service and pulmonary service notes reviewed. 10/24/2016: Patient is evaluated on the surgical unit where he is currently lying in bed. Patient is more alert and interactive than yesterday. Patient ate about half of his lunch. Patient did have Dr. Epstein from neurology service evaluate him for his bilateral occipital nerve pain who arranged for anesthesia for bilateral occipital nerve block this morning. Patient tolerated procedure well. Patient also had another abdominal x-ray this morning which shows persistent contrast within the colon. Patient is still being followed by infectious disease service who is recommending CT of abdomen and pelvis when contrast is cleared. Patient remains afebrile. Hemodynamically stable. Objective - Vital Signs Vital signs: Vital Signs Temp 97.5 F L 10/24/16 14:44 Pulse 84 10/24/16 14:44 Resp 18 10/24/16 14:44 BP 108/55 10/24/16 14:44 Pulse Ox 93 L 10/24/16 14:44 Intake & Output 10/23/16 10/24/16 10/24/16 18:59 06:59 18:59 Intake Total 5424 585 4264 Balance 9056 836 5824 Weight 75 kg Intake: IV 240 130 Sodium Chloride 0.9% 1, 240 130 000 ml @ 20 mls/hr IV . Q24H [facility] Rx#:[id number] Intake, IV Titration 210 250 Amount Piperacillin-Tazobactam 3 50 .375 gm In Dextrose/Water 1 50ml.bag @ 12.5 mls/hr IVPB Q8HR [facility] Rx#: [id number] Sodium Chloride 0.9% 1, 160 000 ml @ 20 mls/hr IV . Q24H [facility] Rx#:[id number] Vancomycin 1,250 mg In 250 Sodium Chloride 0.9% 250 ml @ 125 mls/hr IVPB Q18H [facility] Rx#:[id number] Oral 970 900 Other: Voiding Method Urinal Urinal # Voids 3 2 # Bowel Movements 1 - Exam GENERAL: Pt is awake and alert, well-nourished, appears in no acute distress. HEAD: Atraumatic, normocephalic. EYES: Pupils equal and round. ENT: Moist mucous membranes. NECK:Supple without lymphadenopathy or JVD. LUNGS: Breath sounds diminished with right basilar crackles. HEART: Heart S1, S2, no S3 or S4. Regular rate and rhythm. Systolic murmur. ABDOMEN: Soft, nontender, distended but easily compresses with palpation, normoactive bowel sounds. EXTREMITIES: 1+ peripheral pulses. No edema. No calf tenderness. NEUROLOGICAL: Pt oriented x 2. No focal deficits. Strength and sensation grossly intact. PSYCH: Calm. SKIN: Warm, dry, intact. - Labs CBC & Chem 7: 10/24/16 06:17 10/24/16 06:17 Labs: Abnormal Lab Results - Last 24 Hours (Table) 10/23/16 10/23/16 10/24/16 Range/Units 16:43 21:01 06:17 WBC 18.4 H (3.8-10.6) k/uL RBC 3.01 L (4.30-5.90) m/uL Hgb 8.1 L (13.0-17.5) gm/dL Hct 26.6 L (39.0-53.0) % MCHC 30.6 L (31.0-37.0) g/dL RDW 16.5 H (11.5-15.5) % Neutrophils # 16.3 H (1.3-7.7) k/uL Lymphocytes # 0.8 L (1.0-4.8) k/uL Monocytes # 1.1 H (0-1.0) k/uL BUN (9-20) mg/dL POC Glucose (mg/dL) 178 H 164 H (75-99) mg/dL Calcium (8.4-10.2) mg/dL 10/24/16 10/24/16 10/24/16 Range/Units 06:17 07:00 12:15 WBC (3.8-10.6) k/uL RBC (4.30-5.90) m/uL Hgb (13.0-17.5) gm/dL Hct (39.0-53.0) % MCHC (31.0-37.0) g/dL RDW (11.5-15.5) % Neutrophils # (1.3-7.7) k/uL Lymphocytes # (1.0-4.8) k/uL Monocytes # (0-1.0) k/uL BUN 33 H (9-20) mg/dL POC Glucose (mg/dL) 107 H 144 H (75-99) mg/dL Calcium 7.9 L (8.4-10.2) mg/dL Microbiology - Last 24 Hours (Table) 10/19/16 16:20 Blood Culture - Preliminary Blood No Growth after 96 hours Assessment and Plan Plan: Impression and plan: 1. Sepsis, present on admission, suspect secondary to right basilar lung infiltrates suggestive of pneumonia suspect aspiration. Gram-positive and gram- negative bacteremia, awaiting final cultures. Final sputum culture positive for Pseudomonas on [place] and Jazmine albicans. Infectious disease consult requested, recommendations noted. Pulmonary consult in place, recommendations noted. Continue IV antibiotics. Continue supplemental oxygen. Continue systemic steroids. 2. Acute metabolic encephalopathy, multifactorial: suspect secondary to sleep deprivation, infection, and possible psychosis, improved. 3. Acute hypoxia respiratory failure, present on admission. Continue supplemental oxygen to keep oxygen saturation greater than or equal to 88%. 2. Dehydration, present on admission. Continue IV hydration. 3. Coronary artery disease with previous myocardial infarction and stent placement. Continue Plavix. 4. COPD. Continue Pulmicort. 5. Hypertension. Continue Norvasc. 6. History of CVA and multiple TIAs. 7. 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 8. BPH. Continue Flomax. 9. Hyperlipidemia. Continue Lipitor. 10. Chest x-ray with possible mild CHF. BNP level within normal limits on admission. Echocardiogram with Doppler obtained in August with preserved LV function. Continue Lasix. 11. Anxiety. Continue Xanax when necessary. 12. Gait dysfunction. Maintain fall precautions. Consult PT OT to help with discharge planning. 13. History of falls. 14. History of nicotine dependence. 15. Dysphagia. Modified diet per speech pathologist. 16. Headache suspect secondary to occipital neuritis. Neurology consult requested, recommendations reviewed. Patient is status post bilateral occipital nerve block procedure with anesthesia on 10/24/2016. 15. DVT prophylaxis. Continue pneumatic compression sleeves and BEBE hose to bilateral lower extremities. 16. GI prophylaxis. Continue Pepcid. 17. Repeat CBC and BMP in a.m. The above impression and plan have been discussed and directed by Dr. Fraser. Judy PHAM acting as scribe for Dr. Fraser.
[2016-10-24 17:11] LABS: Glucose,Whole Blood 145 mg/dL (75-99)
--- NOTE | 2016-10-24 18:31 | PN ---
DATE OF SERVICE: 10/24/2016 Patient is an 85-year-old male who is seen sitting up in bed. He is awake, alert, pleasantly confused, trying to take the placemat off his tray to use it as a napkin. Patient is afebrile, hemodynamically stable. Appears comfortable at this time, did get an injection in the occipital area for pain today and does verbalize relief. Patient is afebrile, hemodynamically stable, in no acute distress. On physical exam, VITAL SIGNS: Temp is 98.0, heart rate is 73, respiratory rate is 16, blood pressure is 123/57, O2 sat is 96% on 2L O2 via nasal cannula. HEENT: Head is normocephalic, atraumatic. Neck is supple. Trachea is midline. Lungs with decreased breath sounds. No clear rales or wheezes. HEART: S1 and S2 are heard. Not tachycardic. Abdomen is soft. Bowel sounds are heard. EXTREMITIES: With no edema. NEUROLOGIC: Patient is awake, alert, pleasantly confused. LABORATORY DATA: White count is 18.4, hemoglobin is 8.1, hematocrit 26.6 with 246,000 platelets. Sodium is 139, potassium is 4.0, chloride is 103, CO2 is 30, anion gap is 6, BUN is 33, creatinine 0.96, glucose is 95. Calcium is 7.9. Vanco trough is 22.7. On imaging, KUB x-ray done this a.m. shows persistent contrast within the colon. IMPRESSION: 1. Acute hypoxic respiratory failure, right lower lobe aspiration pneumonia, gram-negative bacilli in the sputum positive for Pseudomonas, gram-positive and gram-negative bacteremia, alpha-hemolytic Streptococcus micrococcus species. 2. Sepsis. 3. Dysphagia. 4. History of chronic obstructive pulmonary disease. 5. Dehydration. 6. History of coronary artery disease and previous stent placement. 7. Hypertension. 8. History of cerebrovascular accident. 9. Dyslipidemia. 10. Severe anxiety. 11. History of falls. 12. Chronic neck pain. PLAN: Continue current medications, which have been reviewed, with oxygen to maintain saturations greater than or equal to 88%. Follow up on repeat cultures, which are pending. Influenza was negative. Continue antibiotics per Infectious Disease. Continue bronchodilators and aerosolized steroids with p.o. prednisone taper. Continue modified diet per Speech. Continue pain management with GI and DVT prophylaxis and will follow patient closely with you, making further changes as necessary. I performed a history and physical examination of this patient and discussed the same with the dictator. I agree with the dictator's note. Any additional findings/opinions, etc. will be noted.
--- NOTE | 2016-10-24 18:34 | P.PN ---
Subjective This patient is a 85-year-old right-handed white male who was seen yesterday for evaluation of head and neck pain. Patient had evidence of bilateral occipital neuritis. Anesthesia was consulted this morning for bilateral occipital nerve block procedure. Patient underwent procedure today and seems to be doing somewhat better. He is being treated for underlying sepsis and Pseudomonas pneumonia. He is on antibiotics as per the recommendations of infectious disease. We will continue to follow his progress closely during this admission and monitor his occipital headache pain closely. It may take 24- 48 hours to see a maximum response from the occipital nerve block procedure. The patient states he did notice improvement after 4 hours following the occipital procedure today. He does seem to be in much more calm spirits and in less pain as compared to yesterday. We will await further recommendations from anesthesia in regards to any further treatment plans. He does seem to have responded very well to the occipital block procedure. He will follow-up with the outpatient pain clinic as needed. He may continue with analgesics as needed at this time for further treatment. Overall prognosis remains guarded. Objective - Vital Signs Vital signs: Vital Signs Temp 97.5 F L 10/24/16 14:44 Pulse 84 10/24/16 14:44 Resp 18 10/24/16 14:44 BP 108/55 10/24/16 14:44 Pulse Ox 93 L 10/24/16 14:44 Intake & Output 10/23/16 10/24/16 10/24/16 18:59 06:59 18:59 Intake Total 2088 939 4849 Balance 6603 417 3924 Weight 75 kg Intake: IV 240 130 Sodium Chloride 0.9% 1, 240 130 000 ml @ 20 mls/hr IV . Q24H [facility] Rx#:[id number] Intake, IV Titration 210 250 Amount Piperacillin-Tazobactam 3 50 .375 gm In Dextrose/Water 1 50ml.bag @ 12.5 mls/hr IVPB Q8HR [facility] Rx#: [id number] Sodium Chloride 0.9% 1, 160 000 ml @ 20 mls/hr IV . Q24H [facility] Rx#:[id number] Vancomycin 1,250 mg In 250 Sodium Chloride 0.9% 250 ml @ 125 mls/hr IVPB Q18H [facility] Rx#:[id number] Oral 970 900 Other: Voiding Method Urinal Urinal # Voids 3 2 # Bowel Movements 1 - Exam Physical examination: PHYSICAL EXAMINATION: Patient is resting comfortably in bed. VITAL SIGNS: Blood pressure is [108/55]. Heart rate is [82]. Respiration is [18] . Temperature is [97.5]. HEENT: Head is atraumatic, neck is supple, there were no carotid bruits. CHEST: Lungs are clear to auscultation and percussion. CARDIAC: S1, S2 normal rate and rhythm. There is no murmur. ABDOMEN: Soft and nontender. Bowel sounds are present. EXTREMITIES: There is no pedal edema. Peripheral pulses are present. Neurological examination: Patient's neurological examination is unchanged from yesterday. Patient has very minimal occipital pain on palpation today. - Labs CBC & Chem 7: 10/24/16 06:17 10/24/16 06:17 Labs: Abnormal Lab Results - Last 24 Hours (Table) 10/23/16 10/23/16 10/24/16 Range/Units 16:43 21:01 06:17 WBC 18.4 H (3.8-10.6) k/uL RBC 3.01 L (4.30-5.90) m/uL Hgb 8.1 L (13.0-17.5) gm/dL Hct 26.6 L (39.0-53.0) % MCHC 30.6 L (31.0-37.0) g/dL RDW 16.5 H (11.5-15.5) % Neutrophils # 16.3 H (1.3-7.7) k/uL Lymphocytes # 0.8 L (1.0-4.8) k/uL Monocytes # 1.1 H (0-1.0) k/uL BUN (9-20) mg/dL POC Glucose (mg/dL) 178 H 164 H (75-99) mg/dL Calcium (8.4-10.2) mg/dL 10/24/16 10/24/16 10/24/16 Range/Units :17 07:00 12:15 WBC (3.8-10.6) k/uL RBC (4.30-5.90) m/uL Hgb (13.0-17.5) gm/dL Hct (39.0-53.0) % MCHC (31.0-37.0) g/dL RDW (11.5-15.5) % Neutrophils # (1.3-7.7) k/uL Lymphocytes # (1.0-4.8) k/uL Monocytes # (0-1.0) k/uL BUN 33 H (9-20) mg/dL POC Glucose (mg/dL) 107 H 144 H (75-99) mg/dL Calcium 7.9 L (8.4-10.2) mg/dL Microbiology - Last 24 Hours (Table) 10/19/16 16:20 Blood Culture - Preliminary Blood No Growth after 96 hours 10/20/16 08:25 Gram Stain - Final Sputum Sputum Culture - Final Pseudomonas aeruginosa Jazmine albicans Assessment and Plan (1) Occipital neuritis Status: Acute Code(s): M54.81 - OCCIPITAL NEURALGIA Plan: Patient has evidence of bilateral occipital neuritis today on examination. We have recommended the patient undergo a bilateral occipital nerve block procedure with anesthesia. This will be arranged for him for tomorrow morning. He is being treated for underlying sepsis and pneumonia. We will continue to follow his progress closely during this admission. Case was discussed at length with the patient and his at bedside. Patient underwent bilateral occipital nerve block procedure earlier today. He has responded very well to this treatment. His was updated and she also notices significant improvement in his overall condition. We will continue to follow his progress very closely during this admission. He may continue to apply moist heat to the head and neck region on a daily basis as this may also prevent further recurrence of occipital neuritis. His overall prognosis at this time remains guarded.
[2016-10-24 20:47] LABS: Glucose,Whole Blood 167 mg/dL (75-99)
[2016-10-24] MEDS: ALPRAZolam 0.25 MG TAB PO PRN (21:46)
[2016-10-24] MEDS: ONDANSETRON 4 MG/2 ML VIAL IVP PRN (22:26)
[2016-10-25] MEDS: PIPERACILLIN-TAZOBACTAM 3.375 GM in DEXTROSE/WATER 1 50ML.BAG IVPB SCH ×2 (00:55→11:24)
[2016-10-25] MEDS: SODIUM CHLORIDE 0.9% 1,000 ML IV SCH (00:57)
[2016-10-25] MEDS ORDERED: VANCOMYCIN 1,250 MG in SODIUM CHLORIDE 0.9% 250 ML IVPB SCH (06:00)
--- NOTE | 2016-10-25 07:04 | PN ---
DATE OF SERVICE: 10/24/2016 Reason for followup is Pseudomonas pneumonia and Streptococcus bacteremia. INTERVAL HISTORY: The patient is afebrile. Has been hemodynamically stable. He is breathing more comfortably. The cough has decreased in intensity and was dry in nature. No chest pain. No abdominal pain. No diarrhea. On examination, blood pressure is 117/65 with a pulse of 77, temperature is 97.8. He is 94% on 3 L nasal cannula. General description is an elderly male, lying in bed in no distress. RESPIRATORY SYSTEM: Unlabored breathing with decreased breath sounds at the bases. HEART: S1, S2, regular rate and rhythm. ABDOMEN: Soft, no tenderness. EXTREMITIES: No edema of the feet. LABS: Hemoglobin 8.1, white count of 18.4 with a BUN of 33, creatinine 0.96. Blood cultures on 10/19 has been negative. DIAGNOSTIC IMPRESSION AND PLAN: Patient with alpha hemolytic streptococcus bacteremia also pneumonia with the sputum showing Pseudomonas aeruginosa with a question of possible aspiration pneumonia. At this time the patient will continue on Zosyn. In view of him high risk of aspiration and with pneumonia, recommend getting a PICC line and continue the patient on IV Zosyn as an outpatient for at least 2 weeks. Continue supportive care. MTDD
[2016-10-25 07:25] LABS: Glucose,Whole Blood 124 mg/dL (75-99)
[2016-10-25 07:33] LABS: Anion Gap 6 mmol/L; Blood Urea Nitrogen 29 mg/dL (9-20); Carbon Dioxide 28 mmol/L (22-30); Chloride 101 mmol/L (98-107); Glucose 110 mg/dL (74-99); Non-African American GFR(MDRD) >60 (>60 ml/min/1.73 sqM); Potassium 4.3 mmol/L (3.5-5.1); Sodium 135 mmol/L (137-145)
[2016-10-25 07:55] LABS: Anisocytosis Slight; Basophils % (A) 0 %; CH 27.6; CHCM 31.2; Eosinophils % (A) 0 %; HCT 25.3 % (39.0-53.0); HDW 2.67; HGB 7.8 gm/dL (13.0-17.5); Hypochromasia Slight; Luc # (Auto) 0.11; Luc % (Auto) 1; Lymphocytes # (A) 0.6 k/uL (1.0-4.8); Lymphocytes % (A) 4 %; MCH 27.6 pg (25.0-35.0); Mean Platelet Volume 7.6; Monocytes # (A) 0.8 k/uL (0-1.0); Monocytes % (A) 5 %; Neutrophils # (A) 13.8 k/uL (1.3-7.7); Neutrophils % (A) 90 %; RBC 2.84 m/uL (4.30-5.90); RDW 16.9 % (11.5-15.5); WBC 15.4 k/uL (3.8-10.6); WBC (Perox) 16.06
[2016-10-25] MEDS: BUDESONIDE 0.5 MG/2 ML NEBU INHALATION PRN (08:45)
[2016-10-25] MEDS: IPRATROPIUM-ALBUTEROL 3 ML NEB INHALATION SCH ×3 (08:45→15:40)
[2016-10-25] MEDS: INSULIN LISPRO (humaLOG) 300 UNIT/3 ML VIAL SQ SCH ×2 (08:59→13:05)
[2016-10-25] MEDS: predniSONE 20 MG TAB PO SCH (09:42)
[2016-10-25] MEDS: ENOXAPARIN 40 MG/0.4 ML SYRINGE SQ SCH (09:42)
[2016-10-25] MEDS: CLOPIDOGREL 75 MG TAB PO SCH (09:42)
[2016-10-25] MEDS: FUROSEMIDE 20 MG TAB PO SCH (09:43)
[2016-10-25] MEDS: FAMOTIDINE 20 MG TAB PO SCH (09:43)
[2016-10-25] MEDS: TAMSULOSIN 0.4 MG CAP.ER.24H PO SCH (09:43)
[2016-10-25] MEDS: amLODIPine 5 MG TAB PO SCH (09:43)
[2016-10-25] MEDS: HYDROcodone/APAP 7.5-325MG 1 EACH TAB PO PRN ×2 (09:50→16:21)
[2016-10-25 11:45] LABS: Glucose,Whole Blood 143 mg/dL (75-99)
[2016-10-25 12:16] VITALS: BMI 24.9
--- NOTE | 2016-10-25 13:38 | P.PN ---
Subjective This patient is a 85-year-old right-handed white male who was seen yesterday for evaluation of head and neck pain. Patient had evidence of bilateral occipital neuritis. Anesthesia was consulted this morning for bilateral occipital nerve block procedure. Patient underwent procedure today and seems to be doing somewhat better. He is being treated for underlying sepsis and Pseudomonas pneumonia. He is on antibiotics as per the recommendations of infectious disease. We will continue to follow his progress closely during this admission and monitor his occipital headache pain closely. It may take 24- 48 hours to see a maximum response from the occipital nerve block procedure. The patient states he did notice improvement after 4 hours following the occipital procedure today. He does seem to be in much more calm spirits and in less pain as compared to yesterday. We will await further recommendations from anesthesia in regards to any further treatment plans. He does seem to have responded very well to the occipital block procedure. His pain level has substantially reduced after undergoing the occipital nerve block procedure yesterday. He is being treated for underlying Pseudomonas pneumonia and streptococcus bacteremia and is currently on antibiotic therapy with Zosyn. Infectious disease is monitoring him closely as well. He will follow-up with the outpatient pain clinic as needed. He may continue with analgesics as needed at this time for further treatment. Overall prognosis remains guarded. Objective - Vital Signs Vital signs: Vital Signs Temp 97.0 F L 10/25/16 07:00 Pulse 88 10/25/16 12:35 Resp 14 10/25/16 08:00 BP 136/63 10/25/16 07:00 Pulse Ox 95 10/25/16 07:00 Intake & Output 10/24/16 10/25/16 10/25/16 18:59 06:59 18:59 Intake Total 1959 50 280 Balance 1959 50 280 Weight 76.5 kg 76.5 kg Intake: IV 130 Sodium Chloride 0.9% 1, 130 000 ml @ 20 mls/hr IV . Q24H [facility] Rx#:[id number] Intake, IV Titration 250 Amount Vancomycin 1,250 mg In 250 Sodium Chloride 0.9% 250 ml @ 125 mls/hr IVPB Q18H [facility] Rx#:[id number] Oral 1580 50 280 Other: Voiding Method Urinal Urinal Urinal # Voids 2 - Exam Physical examination: PHYSICAL EXAMINATION: Patient is resting comfortably in bed. VITAL SIGNS: Blood pressure is [136/63]. Heart rate is [88]. Respiration is [17] . Temperature is [97.0]. HEENT: Head is atraumatic, neck is supple, there were no carotid bruits. CHEST: Lungs are clear to auscultation and percussion. CARDIAC: S1, S2 normal rate and rhythm. There is no murmur. ABDOMEN: Soft and nontender. Bowel sounds are present. EXTREMITIES: There is no pedal edema. Peripheral pulses are present. Neurological examination: Patient's neurological examination is unchanged from yesterday. Patient has very minimal occipital pain on palpation today. - Labs CBC & Chem 7: 10/25/16 06:57 10/25/16 06:57 Labs: Abnormal Lab Results - Last 24 Hours (Table) 10/24/16 10/24/16 10/25/16 Range/Units 16:57 20:41 06:57 WBC (3.8-10.6) k/uL RBC (4.30-5.90) m/uL Hgb (13.0-17.5) gm/dL Hct (39.0-53.0) % RDW (11.5-15.5) % Neutrophils # (1.3-7.7) k/uL Lymphocytes # (1.0-4.8) k/uL Sodium 135 L (137-145) mmol/L BUN 29 H (9-20) mg/dL Glucose 110 H (74-99) mg/dL POC Glucose (mg/dL) 145 H 167 H (75-99) mg/dL Calcium 8.0 L (8.4-10.2) mg/dL 10/25/16 10/25/16 10/25/16 Range/Units 06:57 07:15 11:36 WBC 15.4 H (3.8-10.6) k/uL RBC 2.84 L (4.30-5.90) m/uL Hgb 7.8 L (13.0-17.5) gm/dL Hct 25.3 L (39.0-53.0) % RDW 16.9 H (11.5-15.5) % Neutrophils # 13.8 H (1.3-7.7) k/uL Lymphocytes # 0.6 L (1.0-4.8) k/uL Sodium (137-145) mmol/L BUN (9-20) mg/dL Glucose (74-99) mg/dL POC Glucose (mg/dL) 124 H 143 H (75-99) mg/dL Calcium (8.4-10.2) mg/dL Microbiology - Last 24 Hours (Table) 10/19/16 16:20 Blood Culture - Preliminary Blood No Growth after 120 hours Assessment and Plan (1) Occipital neuritis Status: Acute Code(s): M54.81 - OCCIPITAL NEURALGIA Plan: Patient has evidence of bilateral occipital neuritis today on examination. We have recommended the patient undergo a bilateral occipital nerve block procedure with anesthesia. This will be arranged for him for tomorrow morning. He is being treated for underlying sepsis and pneumonia. We will continue to follow his progress closely during this admission. Case was discussed at length with the patient and his at bedside. Patient underwent bilateral occipital nerve block procedure earlier today. He has responded very well to this treatment. His was updated and she also notices significant improvement in his overall condition. We will continue to follow his progress very closely during this admission. He may continue to apply moist heat to the head and neck region on a daily basis as this may also prevent further recurrence of occipital neuritis. We will continue to monitor his response to the occipital nerve block procedure closely over the weekend. He does seem to have responded well to treatment and we will have him continue treatment of underlying pneumonia and sepsis. Infectious disease is also following him closely. His overall prognosis at this time remains guarded.
[2016-10-25] MEDS ORDERED: predniSONE 20 MG TAB PO SCH (14:49)
--- NOTE | 2016-10-25 14:49 | P.PN ---
Subjective Principal diagnosis: Aspiration pneumonia Patient seen and examined. Patient states his head is still hurting but feels a little better. He states his breathing is fine. He is planning to go to [facility]. Objective - Vital Signs Vital signs: Vital Signs Temp 97.0 F L 10/25/16 07:00 Pulse 88 10/25/16 12:35 Resp 14 10/25/16 08:00 BP 136/63 10/25/16 07:00 Pulse Ox 95 10/25/16 07:00 Intake & Output 10/24/16 10/25/16 10/25/16 18:59 06:59 18:59 Intake Total 1960 50 1030 Balance 1960 50 1030 Weight 76.5 kg 76.5 kg Intake: IV 130 160 Sodium Chloride 0.9% 1, 130 160 000 ml @ 20 mls/hr IV . Q24H [facility] Rx#:[id number] Intake, IV Titration 250 Amount Vancomycin 1,250 mg In 250 Sodium Chloride 0.9% 250 ml @ 125 mls/hr IVPB Q18H [facility] Rx#:[id number] Oral 1580 50 870 Other: Voiding Method Urinal Urinal Urinal # Voids 2 3 # Bowel Movements 1 - Exam Gen.: Patient is alert, confused Cardiovascular: Regular rate and rhythm, S1/S2 Lungs: Diminished breath sounds bilaterally with right basilar crackles Abdomen: Soft nontender nondistended positive bowel sounds Extremities: No edema - Labs CBC & Chem 7: 10/25/16 06:57 10/25/16 06:57 Labs: Abnormal Lab Results - Last 24 Hours (Table) 10/24/16 10/24/16 10/25/16 Range/Units 16:57 20:41 06:57 WBC (3.8-10.6) k/uL RBC (4.30-5.90) m/uL Hgb (13.0-17.5) gm/dL Hct (39.0-53.0) % RDW (11.5-15.5) % Neutrophils # (1.3-7.7) k/uL Lymphocytes # (1.0-4.8) k/uL Sodium 135 L (137-145) mmol/L BUN 29 H (9-20) mg/dL Glucose 110 H (74-99) mg/dL POC Glucose (mg/dL) 145 H 167 H (75-99) mg/dL Calcium 8.0 L (8.4-10.2) mg/dL 10/25/16 10/25/16 10/25/16 Range/Units 06:57 07:15 11:36 WBC 15.4 H (3.8-10.6) k/uL RBC 2.84 L (4.30-5.90) m/uL Hgb 7.8 L (13.0-17.5) gm/dL Hct 25.3 L (39.0-53.0) % RDW 16.9 H (11.5-15.5) % Neutrophils # 13.8 H (1.3-7.7) k/uL Lymphocytes # 0.6 L (1.0-4.8) k/uL Sodium (137-145) mmol/L BUN (9-20) mg/dL Glucose (74-99) mg/dL POC Glucose (mg/dL) 124 H 143 H (75-99) mg/dL Calcium (8.4-10.2) mg/dL Microbiology - Last 24 Hours (Table) 10/19/16 16:20 Blood Culture - Preliminary Blood No Growth after 120 hours Assessment and Plan Plan: Acute hypoxic respiratory failure Right lower lobe, aspiration pneumonia, gram-negative bacilli in sputum - pseudomonas Gram-positive and gram-negative bacteremia, alpha hemolytic strep, micrococcus sp. Sepsis Dysphagia History of COPD Dehydration History of coronary artery disease and previous stent placement Hypertension History of CVA Dyslipidemia Severe anxiety History of falls Chronic neck pain O2 to maintain saturation greater than equal to 88% Sputum culture Repeat blood cultures pending Influenza negative Antibiotics: Vancomycin, Clinda, Zosyn - per ID Pulmicort Bronchodilators Prednisone taper Modified diet per speech lung which pathology Decrease IV fluids DC planning for possible subacute rehab, plan for [facility] Consult neurology and pain management for neck/back pain issues GI and DVT prophylaxis
[2016-10-25] MEDS ORDERED: LIDOCAINE 2% INJ 20 MG/ML SQ ONE (15:14)
--- NOTE | 2016-10-25 15:46 | IR ---
PICC LINE PLACEMENT: HISTORY: Infection requiring long-term antibiotic therapy PROCEDURE: Ultrasound and fluoroscopic guidance of PICC line placement. COMPLICATIONS: None ANESTHESIA: 1. 1% Lidocaine locally. FINDINGS/TECHNIQUE: The procedure was explained to the patient. The risks, complications, benefits and alternatives were discussed and any questions were answered. Informed consent was obtained. The patient was placed supine on the fluoroscopic table and prepped and draped in the usual sterile [facility] ion. Utilizing a 21 gauge needle and sonographic and fluoroscopic guidance, access in the vein was achieved and there is placement of a 0.018 guidewire. The vein is patent. A 4-F sheath was placed o heladio the guidewire. The guidewire and dilator were removed and a 4-F. PICC line was placed through th e sheath with the tip at the level of the SVC. The sheath was removed, the catheter was flushed and sutured into position. The patient was stable throughout the procedure and remained stable upon disc harge from the Department of Radiology. The vein puncture was patent under ultrasound. A golden scale image was obtained to document patency of the vein punctured. All elements of the maximal barrier technique were utilized. FLUOROSCOPY TIME: 0.1 minute IMPRESSION: Successful PICC line placement under ultrasound and fluoroscopic guidance.
[2016-10-25 15:48] VITALS: BP 112/53; RESP 17; TEMP 96.2
[2016-10-25 15:52] VITALS: PULSE 84
--- NOTE | 2016-10-25 15:54 | P.DS ---
Providers Date of admission: 10/17/16 00:09 Expected date of discharge: 10/25/16 Attending physician: Dante Fraser Consults: 10/17/16 08:11 Consult Physician Urgent Consulting Provider: Dimitris Rojas Consult Reason/Comments: pneumonia Do you want consulting provider notified?: Yes 10/17/16 12:35 Consult Physician Urgent Consulting Provider: Eduardo Hernandez Consult Reason/Comments: BILATERAL LEG SWELLING, CHF? Do you want consulting provider notified?: Yes 10/18/16 13:06 Consult Physician Urgent Consulting Provider: Soni Bridges Consult Reason/Comments: PRELIMINARY POSITIVE BLOOD CULTURES Do you want consulting provider notified?: Yes 10/22/16 09:17 Consult Physician Routine Consulting Provider: Forrest Paul Consult Reason/Comments: occupital pain, scheduled for injections next week in Replaced By [facility] Do you want consulting provider notified?: Already Contacted 10/23/16 15:56 Consult Physician Routine Consulting Provider: Iva Epstein Consult Reason/Comments: known to you, chronic neck/back pain Do you want consulting provider notified?: Yes 10/24/16 08:00 Consult Anesthesia Urgent Consulting Provider: Anesthesia,Services Consult Reason/Comments: Bilateral occipital nerve blocks. Primary care physician: Dante Fraser [facility] Course: Patient is an 85-year-old male, patient of Dr. Dante Fraser in the outpatient setting with medical history significant for coronary artery disease , COPD, TIAs, CVA, early onset dementia, bilateral macular degeneration, hypertension, myocardial infarction with stent placements, pneumonia, BPH, hyperlipidemia, and gait dysfunction with history of falls. Patient was recently hospitalized in August when he presented with right cervical and right temporal pain suspect secondary to cervical strain and degenerative disc disease and non-Q-wave [place]. Patient underwent cardiac catheterization and was found to have moderate disease in the LAD and critical lesion in the distal circumflex and total occlusion of the RCA with stent placement of the circumflex. Patient was discharged home in stable condition. On this admission, patient presented to the emergency department with complaints of shortness of breath and cough. Patient was found to have sepsis suspect secondary to right basilar pneumonia, aspiration. 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 Speech pathology recommended soft mechanical diet. Patient was evaluated by cardiology service, who didn't feel patient's shortness of breath was evidence of acute congestive heart failure but rather underlying pneumonia. Patient was evaluated by Dr. Epstein for occipital neuritis and did receive bilateral occipital nerve block on this hospitalization. Blood cultures came back with polymicrobial bacteremia with alpha hemolytic streptococcus as well as gram-negative with question of possible pneumonia versus abdominal source. Patient was evaluated by Dr. Bridges from infectious disease service who recommended 2 weeks of IV Zosyn on discharge. Patient did receive a PICC line prior to discharge. Patient will be transferred to [facility] for subacute rehab. Discharge diagnoses: 1. Sepsis, present on admission, suspect secondary to right basilar lung infiltrates suggestive of pneumonia suspect aspiration, sputum culture positive for Pseudomonas aeruginosa and Jazmine albicans. Blood cultures polymicrobial with evidence of alpha hemolytic Streptococcus and micrococcus sp. 2. Acute metabolic encephalopathy, multifactorial: suspect secondary to sleep deprivation, infection, and possible psychosis, resolved. 3. Acute hypoxia respiratory failure, present on admission, improved. 2. Dehydration, present on admission, resolved. 3. Coronary artery disease with previous myocardial infarction and stent placement. 4. COPD. 5. Hypertension. 6. History of CVA and multiple TIAs. 7. 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 8. BPH. 9. Hyperlipidemia. 10. Chest x-ray with possible mild CHF. BNP level within normal limits on admission. Echocardiogram with Doppler obtained in August with preserved LV function. 11. Anxiety. 12. Gait dysfunction. 13. History of falls. 14. History of nicotine dependence. 15. Dysphagia. 16. Headache suspect secondary to bilateral occipital neuritis status post bilateral occipital nerve block procedure with anesthesia on 10/24/2016. The above impression and plan have been discussed and directed by Dr. Fraser. Judy MADDOX-Usman acting as scribe for Dr. Fraser. Pertinent Studies: EKG; chest x-ray; barium swallow x-ray; KUB x-ray Procedures: Bilateral occipital nerve block; insertion of PICC line Patient Condition at Discharge: Stable Plan - Discharge Summary New Discharge Prescriptions: ALPRAZolam [Xanax] 0.25 mg PO TID PRN #21 tab PRN Reason: Anxiety HYDROcodone/APAP 7.5-325MG [[place] 7.5-325] 1 tab PO Q4H PRN #42 tab PRN Reason: Pain Piperacillin-Tazobactam [Zosyn] 3.375 gm IVPB Q8HR #42 bag predniSONE 0 mg PO DIRECTED #30 tab traMADol HCl [Ultram] 50 mg PO Q6HR PRN #28 tab PRN Reason: Pain Discharge Medication List Tamsulosin HCl [Flomax] 0.4 mg PO DAILY 04/05/16 [History] Atorvastatin [Lipitor] 40 mg PO DAILY #90 tab 08/31/16 [Rx] Clopidogrel [Plavix] 75 mg PO DAILY #90 tab 08/31/16 [Rx] amLODIPine [Norvasc] 5 mg PO DAILY #90 tab 08/31/16 [Rx] Budesonide [Pulmicort] 0.5 mg INHALATION RT-BID PRN 09/27/16 [History] ALPRAZolam [Xanax] 0.25 mg PO TID PRN #21 tab 10/25/16 [Rx] Famotidine [Pepcid] 20 mg PO DAILY tab 10/25/16 [Rx] Furosemide [Lasix] 20 mg PO DAILY tab 10/25/16 [Rx] HYDROcodone/APAP 7.5-325MG [[place] 7.5-325] 1 tab PO Q4H PRN #42 tab 10/25/16 [Rx ] INSULIN LISPRO (humaLOG) [humaLOG (formulary)] 0 unit SQ ACHS vial 10/25/16 [Rx ] Ipratropium-Albuterol Nebulize [Duoneb 0.5 mg-3 mg/3 ml Soln] 3 ml INHALATION RT -Q2H PRN #0 ampul.neb 10/25/16 [Rx] Ipratropium-Albuterol Nebulize [Duoneb 0.5 mg-3 mg/3 ml Soln] 3 ml INHALATION RT -QID ampul.neb 10/25/16 [Rx] Ondansetron [Zofran] 4 mg IVP Q6HR PRN #0 vial 10/25/16 [Rx] Piperacillin-Tazobactam [Zosyn] 3.375 gm IVPB Q8HR #42 bag 10/25/16 [Rx] predniSONE 0 mg PO DIRECTED #30 tab 10/25/16 [Rx] traMADol HCl [Ultram] 50 mg PO Q6HR PRN #28 tab 10/25/16 [Rx] Follow up Appointment(s)/Referral(s): Iva Epstein MD [STAFF PHYSICIAN] - 10/29/16 2:30 pm Dante Fraser DO [Primary Care Provider] - 1-2 days (Patient to schedule appointment with Dr. Fraser after discharge from [facility].) May Wells DO [Doctor of Osteopathic Medicine] - 11/01/16 3:45 pm Soni Bridges MD [STAFF PHYSICIAN] - 11/07/16 9:45 am Ambulatory/Diagnostic Orders: Basic Metabolic Panel [LAB.AMB] Time Frame: 10/28/16, Location: Determined By Patient Complete Blood Count w/diff [LAB.AMB] Time Frame: 10/28/16, Location: Determined By Patient Activity/Diet/Wound Care/Special Instructions: [facility] - [phone] Diet: Mechanical soft diet, heart healthy, consistent carbohydrate diet Moist heat to head and neck region daily as needed Discharge Disposition: TRANSFER TO SNF/ECF
[2016-10-25] MEDS: ATORVASTATIN 40 MG TAB PO SCH (16:20)
--- NOTE | 2016-10-25 18:48 | PN ---
DATE OF SERVICE: 10/25/2016 Reason for follow-up is pseudomonas pneumonia and strep bacteremia. INTERVAL HISTORY: The patient is afebrile, has been breathing comfortably. Overall the cough has decreased in intensity. Denies any chest pain. No abdominal pain, no nausea, no vomiting or any diarrhea. He did get his PICC line for outpatient IV antibiotic therapy. On examination, blood pressure is 112/53, pulse of 80, temperature 96.2. He is 97% on 2 liters nasal cannula. General description is an elderly male, lying in bed in no distress. RESPIRATORY SYSTEM: Unlabored breathing. Some decrease breath sounds in the base. No wheeze. HEART: S1, S2 regular rate and rhythm. ABDOMEN: Soft. No tenderness. LABS: Hemoglobin is 7.5, white count is 15.4 with a BUN of 29, creatinine 0.98. DIAGNOSTIC IMPRESSION AND PLAN: Patient with pseudomonas aeruginosa pneumonia along with strep bacteremia on antibiotics with the Zosyn to be adjusted to 4.5 q.8 for 2 weeks with close outpatient follow-up.
[2016-10-25] MEDS ORDERED: PIPERACILLIN-TAZOBACTAM 3.375 GM in DEXTROSE/WATER 1 50ML.BAG IVPB SCH (19:00)
== END 2016-10-25 16:40 | DRG 871 ==
LOC: EC 22:37 → 3SUR 10-17 00:09
PROVIDERS: ADMIT Family Medicine; ATTEND Family Medicine
PROC: 02HV33Z Insertion of Infusion Device into Superior Vena Cava, Percutaneous Approach (ICD-10-PCS; principal; 2016-10-25 14:50)
DX: A40.9 Streptococcal sepsis, unspecified (principal); J69.0 Pneumonitis due to inhalation of food and vomit; J96.01 Acute respiratory failure with hypoxia; B37.1 Pulmonary candidiasis; G93.41 Metabolic encephalopathy; J15.1 Pneumonia due to Pseudomonas; J44.0 Chronic obstructive pulmonary disease with (acute) lower respiratory infection; J44.1 Chronic obstructive pulmonary disease with (acute) exacerbation; I11.0 Hypertensive heart disease with heart failure; R13.10 Dysphagia, unspecified; F03.90 Unspecified dementia, unspecified severity, without behavioral disturbance, psychotic disturbance, mood disturbance, and anxiety; I25.82 Chronic total occlusion of coronary artery; I50.9 Heart failure, unspecified; E86.0 Dehydration; A41.89 Other specified sepsis; E78.5 Hyperlipidemia, unspecified; F17.210 Nicotine dependence, cigarettes, uncomplicated; F41.9 Anxiety disorder, unspecified; G89.29 Other chronic pain; H35.30 Unspecified macular degeneration; H40.9 Unspecified glaucoma; H54.8 Legal blindness, as defined in USA; I25.10 Atherosclerotic heart disease of native coronary artery without angina pectoris; I25.2 Old myocardial infarction; J98.01 Acute bronchospasm; K57.90 Diverticulosis of intestine, part unspecified, without perforation or abscess without bleeding; K59.00 Constipation, unspecified; M54.81 Occipital neuralgia; N40.0 Benign prostatic hyperplasia without lower urinary tract symptoms; M54.2 Cervicalgia; M54.9 Dorsalgia, unspecified; R15.9 Full incontinence of feces; R26.81 Unsteadiness on feet; S16.1XXA Strain of muscle, fascia and tendon at neck level, initial encounter; K22.8 Other specified diseases of esophagus; K22.5 Diverticulum of esophagus, acquired; Z79.899 Other long term (current) drug therapy; Z79.02 Long term (current) use of antithrombotics/antiplatelets; Z88.1 Allergy status to other antibiotic agents; Z88.8 Allergy status to other drugs, medicaments and biological substances; Z95.5 Presence of coronary angioplasty implant and graft; Z82.49 Family history of ischemic heart disease and other diseases of the circulatory system; Z72.820 Sleep deprivation; X58.XXXA Exposure to other specified factors, initial encounter
CPT/HCPCS: 36415; 36569; 64405; 71020; 74000; 74220; 76380; 76937; 77001; 80048; 80053; 80202; 81003; 82550; 82553; 83036; 83605; 83735; 83880; 84484; 85025; 85610; 85730; 87040; 87070; 87077; 87186; 87205; 87502; 93005; 94640; 94760; 96365; 99291

== ENCOUNTER 2016-10-30 13:18 | Day surgery (SDC) | payer MEDICARE ==
[2016-10-29 11:24] VITALS: BMI 24.7
[2016-10-30 14:20] VITALS: BP 170/68; RESP 20; TEMP 98.4
[2016-10-30] MEDS ORDERED: LIDOCAINE 2% INJ 20 MG/ML SQ ONE (15:19)
[2016-10-30 15:40] VITALS: PULSE 80
--- NOTE | 2016-10-30 16:32 | IR ---
EXAMINATION TYPE: IR cvc insert >=5 years DATE OF EXAM: 10/30/2016 3:40 PM COMPARISON: NONE CLINICAL HISTORY: Infection Needs long-term intravenous access for antibiotics. PROCEDURE: After informed consent, the skin overlying the right brachial vein was localized with ultrasound and noted to be compressible and patent. An ultrasound image was obtained and submitted on the patient's chart. The overlying skin was prepped and draped and Lidocaine was used for local anesthesia. A sk in naman was made with a scalpel. Access was gained to the vein under ultrasound guidance with a 21 g auge needle and a 0.018 inch wire was advanced. Access site was dilated with Peel-Away sheath and ca theter tailored to the appropriate length and advanced such that the distal tip is at the cavoatrial junction. Spot image was obtained verifying placement. Catheter was fixed to the skin with suture a nd a sterile dressing was placed following hemostasis. Catheter was aspirated and flushed with salin e. Patient was discharged in stable condition without complication. Maximal barrier technique is uti lized. Ultrasound image is documented on the chart. Ultrasound used with sterile technique. Fluoro time and fluoroscopic images submitted to document procedure: 0.4 minutes fluoroscopy time, 74 intraoperative C-arm images document the procedure IMPRESSION: STATUS POST ULTRASOUND AND FLUOROSCOPIC GUIDED PICC LINE PLACEMENT, READY FOR USE. THIS PROCEDURE WAS PERFORMED BY THE UNDERSIGNED.
== END 2016-10-30 15:50 | disposition home or self-care (01) ==
LOC: CATHCVL 13:18
PROVIDERS: ATTEND Radiology Diagnostic Radiology
DX: A41.9 Sepsis, unspecified organism (principal); J18.9 Pneumonia, unspecified organism; N40.0 Benign prostatic hyperplasia without lower urinary tract symptoms; J44.9 Chronic obstructive pulmonary disease, unspecified; I11.0 Hypertensive heart disease with heart failure; I50.9 Heart failure, unspecified; E78.5 Hyperlipidemia, unspecified; I25.10 Atherosclerotic heart disease of native coronary artery without angina pectoris; Z95.5 Presence of coronary angioplasty implant and graft; I25.2 Old myocardial infarction; Z86.73 Personal history of transient ischemic attack (TIA), and cerebral infarction without residual deficits; Z91.81 History of falling; F41.9 Anxiety disorder, unspecified; Z79.02 Long term (current) use of antithrombotics/antiplatelets; Z79.891 Long term (current) use of opiate analgesic; Z79.51 Long term (current) use of inhaled steroids; Z79.899 Other long term (current) drug therapy; Z88.1 Allergy status to other antibiotic agents; Z91.012 Allergy to eggs; Z88.8 Allergy status to other drugs, medicaments and biological substances; Z91.018 Allergy to other foods; Z91.011 Allergy to milk products; Z87.891 Personal history of nicotine dependence
CPT/HCPCS: 36569; 76937; 77001; C1751; C1769; J2001

== ENCOUNTER 2016-11-11 13:54 | Emergency (ER) | payer MEDICARE ==
[2016-11-11] MEDS ORDERED: SODIUM CHLORIDE 0.9% 1,000 ML IV STA (14:31)
--- NOTE | 2016-11-11 14:40 | ED ---
General Adult HPI - General Chief complaint: Weakness Stated complaint: Weakness Time Seen by Provider: 11/11/16 13:56 Source: patient, EMS, RN notes reviewed, old records reviewed Mode of arrival: EMS Limitations: no limitations - History of Present Illness Initial comments: This is an 85-year-old male the ER with weakness. Patient coming a profound weakness. Patient states he just got a hospital in August for multiple medical comorbidities. Patient was transferred home from the clinic care facility in rehab, today he was unable to get off of the toilet secondary to weakness felt weak in his legs. Patient denies chest pain shortness breath or abdominal pain no recent fevers cough or congestion. No problems with nausea vomiting or diarrhea. He was scheduled for pain appointment with his neck was unable to make an appointment secondary to weakness. Pain is old and chronic in nature. - Related Data Home Medications Medication Instructions Recorded Confirmed Tamsulosin HCl [Flomax] 0.4 mg PO DAILY 04/05/16 11/11/16 Budesonide [Pulmicort] 0.5 mg INHALATION BID PRN 09/27/16 11/11/16 Ipratropium-Albuterol Nebulize 3 ml INHALATION RT-QID 10/29/16 11/11/16 [Duoneb 0.5 mg-3 mg/3 ml Soln] Aspirin 325 mg PO DAILY 11/11/16 11/11/16 Atorvastatin [Lipitor] 40 mg PO HS 11/11/16 11/11/16 Ferrous Sulfate [Feosol] 325 mg PO DAILY 11/11/16 11/11/16 Ipratropium-Albuterol Nebulize 3 ml INHALATION RT-Q2H PRN 11/11/16 11/11/16 [Duoneb 0.5 mg-3 mg/3 ml Soln] predniSONE 20 mg PO DAILY 11/11/16 11/11/16 Previous Rx's Medication Instructions Recorded Clopidogrel [Plavix] 75 mg PO DAILY #90 tab 08/31/16 amLODIPine [Norvasc] 5 mg PO DAILY #90 tab 08/31/16 ALPRAZolam [Xanax] 0.25 mg PO TID PRN #21 tab 10/25/16 Famotidine [Pepcid] 20 mg PO DAILY tab 10/25/16 Furosemide [Lasix] 20 mg PO DAILY tab 10/25/16 HYDROcodone/APAP 7.5-325MG [[place] 1 tab PO Q4H PRN #42 tab 10/25/16 7.5-325] traMADol HCl [Ultram] 50 mg PO Q6HR PRN #28 tab 10/25/16 Allergies Allergy/AdvReac Type Severity Reaction Status Date / Time ciprofloxacin [From Cipro] Allergy Mild Hives Verified 11/11/16 14:22 ciprofloxacin HCl Allergy Mild Hives Verified 11/11/16 14:22 [From Cipro] acetic acid Allergy Rash/Hives Verified 11/11/16 14:22 [From [place] Vinegar and Water] egg Allergy Unknown Verified 11/11/16 14:22 tomato Allergy Rash/Hives Verified 11/11/16 14:22 methylprednisolone AdvReac Severe Abdominal Verified 11/11/16 14:22 [From Medrol] Pain Review of Systems ROS Statement: Those systems with pertinent positive or pertinent negative responses have been documented in the HPI. ROS Other: All systems not noted in ROS Statement are negative. Past Medical History Past Medical History: Coronary Artery Disease (CAD), Heart Failure, COPD, CVA/ TIA, Diabetes Mellitus, Eye Disorder, Hypertension, Myocardial Infarction ([place]), Pneumonia, Prostate Disorder Additional Past Medical History / Comment(s): several TIAs, CVA- R leg affected a little- not ambulatory but transfers from wheelchair to bed with help, unsteady on feet. BPH, glaucoma-one wet and one dry, pancreatitis, allergies that cause his skin to itch-vinegar/tomatoes/dairy, KIANA, had PICC line in left arm-now has blood clot from the PICC line. jocy at [facility] for Rx IV for pnemonia Last Myocardial Infarction Date:: August 2016 History of Any Multi-Drug Resistant Organisms: None Reported Past Surgical History: Appendectomy, Cholecystectomy, Heart Catheterization With Stent Additional Past Surgical History / Comment(s): left carotid surgery cataract surgery, deviated septum sx, cataracts removed bilaterally with lens implants, PICC line/removed Past Anesthesia/Blood Transfusion Reactions: Unable to Obtain Additional Past Anesthesia/Blood Transfusion Reaction / Comment(s): no hx at [facility] Date of Last Stent Placement:: 03/2014 Past Psychological History: Anxiety Additional Psychological History / Comment(s): pt currently at [facility] Smoking Status: Never smoker Past Alcohol Use History: None Reported Additional Past Alcohol Use History / Comment(s): Pt states he started smoking at age 14 yrs and quit in 2009. He was mostly a pipe smoker and did smoke cigarettes the last few yrs that he smoked. Past Drug Use History: None Reported - Past Family History Mother Family Medical History: Unable to Obtain Additional Family Medical History / Comment(s): Mother at 94 yrs. Father Family Medical History: Myocardial Infarction ([place]) Additional Family Medical History / Comment(s): of [place] in his 60's General Exam Limitations: no limitations General appearance: alert, in no apparent distress Head exam: Present: atraumatic, normocephalic, normal inspection Eye exam: Present: normal appearance, PERRL, EOMI. Absent: scleral icterus, conjunctival injection, periorbital swelling ENT exam: Present: normal exam, mucous membranes moist Neck exam: Present: normal inspection. Absent: tenderness, meningismus, lymphadenopathy Respiratory exam: Present: normal lung sounds bilaterally. Absent: respiratory distress, wheezes, rales, rhonchi, stridor Cardiovascular Exam: Present: regular rate, normal rhythm, normal heart sounds. Absent: systolic murmur, diastolic murmur, rubs, gallop, clicks GI/Abdominal exam: Present: soft, normal bowel sounds. Absent: distended, tenderness, guarding, rebound, rigid Extremities exam: Present: normal inspection, full ROM, normal capillary refill. Absent: tenderness, pedal edema, joint swelling, calf tenderness Back exam: Present: normal inspection Neurological exam: Present: alert, oriented X3, CN II-XII intact Psychiatric exam: Present: normal affect, normal mood Skin exam: Present: warm, dry, intact, normal color. Absent: rash Course Vital Signs 11/11/16 11/11/16 11/11/16 13:56 14:51 15:41 Temperature 98.2 F 98.5 F Pulse Rate 92 96 89 Respiratory 16 20 20 Rate Blood Pressure 138/68 149/67 145/66 O2 Sat by Pulse 98 92 L 95 Oximetry - Reevaluation(s) Reevaluation #1: 11/11/16 15:36 At this point patient's pain does appear to be improved Reevaluation #2: 11/11/16 16:03 Patient feeling better with resuscitation EKG Findings - EKG Comments: EKG Findings:: EKG shows sinus rhythm rate of 93, DC 146, QRS 80, QTC 432 Medical Decision Making - Medical Decision Making A serum LDR for evaluation of weakness. Patient difficulty getting off the bed today. Getting off again off toilet. Patient at this time is improved, and weakness improved. Patient okay for discharge to home - Lab Data Result diagrams: 11/11/16 14:15 11/11/16 14:15 Lab Results 11/11/16 11/11/16 11/11/16 Range/Units 14:15 14:15 14:15 WBC 9.9 (3.8-10.6) k/uL RBC 3.76 L (4.30-5.90) m/uL Hgb 10.2 L (13.0-17.5) gm/dL Hct 34.8 L (39.0-53.0) % MCV 92.7 (80.0-100.0) fL MCH 27.1 (25.0-35.0) pg MCHC 29.3 L (31.0-37.0) g/dL RDW 17.9 H (11.5-15.5) % Plt Count 215 (150-450) k/uL Neutrophils % 81 % Lymphocytes % 8 % Monocytes % 5 % Eosinophils % 3 % Basophils % 1 % Neutrophils # 8.0 H (1.3-7.7) k/uL Lymphocytes # 0.8 L (1.0-4.8) k/uL Monocytes # 0.5 (0-1.0) k/uL Eosinophils # 0.3 (0-0.7) k/uL Basophils # 0.1 (0-0.2) k/uL Hypochromasia Marked Anisocytosis Slight PT 10.3 (9.0-12.0) sec INR 1.0 (<1.1) APTT 22.3 (22.0-30.0) sec Sodium 137 (137-145) mmol/L Potassium 4.9 (3.5-5.1) mmol/L Chloride 100 (98-107) mmol/L Carbon Dioxide 29 (22-30) mmol/L Anion Gap 8 mmol/L BUN 20 (9-20) mg/dL Creatinine 0.94 (0.66-1.25) mg/dL Est GFR (MDRD) Af Amer >60 (>60 ml/min/1.73 sqM) Est GFR (MDRD) Non-Af >60 (>60 ml/min/1.73 sqM) Glucose 85 (74-99) mg/dL Calcium 8.8 (8.4-10.2) mg/dL Phosphorus 3.5 (2.5-4.5) mg/dL Magnesium 2.1 (1.6-2.3) mg/dL Total Bilirubin 0.8 (0.2-1.3) mg/dL AST 37 (17-59) U/L ALT 49 (21-72) U/L Alkaline Phosphatase 112 (38-126) U/L Total Protein 6.6 (6.3-8.2) g/dL Albumin 3.5 (3.5-5.0) g/dL TSH 1.640 (0.465-4.680) mIU/L Urine Color Urine Appearance (Clear) Urine pH (5.0-8.0) Ur Specific [place] (1.001-1.035) Urine Protein (Negative) Urine Glucose (UA) (Negative) Urine Ketones (Negative) Urine Blood (Negative) Urine Nitrate (Negative) Urine Bilirubin (Negative) Urine Urobilinogen (<2.0) mg/dL Ur Leukocyte Esterase (Negative) 11/11/16 Range/Units 14:15 WBC (3.8-10.6) k/uL RBC (4.30-5.90) m/uL Hgb (13.0-17.5) gm/dL Hct (39.0-53.0) % MCV (80.0-100.0) fL MCH (25.0-35.0) pg MCHC (31.0-37.0) g/dL RDW (11.5-15.5) % Plt Count (150-450) k/uL Neutrophils % % Lymphocytes % % Monocytes % % Eosinophils % % Basophils % % Neutrophils # (1.3-7.7) k/uL Lymphocytes # (1.0-4.8) k/uL Monocytes # (0-1.0) k/uL Eosinophils # (0-0.7) k/uL Basophils # (0-0.2) k/uL Hypochromasia Anisocytosis PT (9.0-12.0) sec INR (<1.1) APTT (22.0-30.0) sec Sodium (137-145) mmol/L Potassium (3.5-5.1) mmol/L Chloride (98-107) mmol/L Carbon Dioxide (22-30) mmol/L Anion Gap mmol/L BUN (9-20) mg/dL Creatinine (0.66-1.25) mg/dL Est GFR (MDRD) Af Amer (>60 ml/min/1.73 sqM) Est GFR (MDRD) Non-Af (>60 ml/min/1.73 sqM) Glucose (74-99) mg/dL Calcium (8.4-10.2) mg/dL Phosphorus (2.5-4.5) mg/dL Magnesium (1.6-2.3) mg/dL Total Bilirubin (0.2-1.3) mg/dL AST (17-59) U/L ALT (21-72) U/L Alkaline Phosphatase (38-126) U/L Total Protein (6.3-8.2) g/dL Albumin (3.5-5.0) g/dL TSH (0.465-4.680) mIU/L Urine Color Yellow Urine Appearance Clear (Clear) Urine pH 6.5 (5.0-8.0) Ur Specific [place] 1.013 (1.001-1.035) Urine Protein Trace H (Negative) Urine Glucose (UA) Negative (Negative) Urine Ketones Negative (Negative) Urine Blood Negative (Negative) Urine Nitrate Negative (Negative) Urine Bilirubin Negative (Negative) Urine Urobilinogen <2.0 (<2.0) mg/dL Ur Leukocyte Esterase Negative (Negative) - Radiology Data Radiology results: report reviewed (Chest x-ray is negative for acute disease), image reviewed Disposition Clinical Impression: Weakness Disposition: HOME SELF-CARE Condition: Good Instructions: Weakness (ED) Referrals: Dante Fraser DO [Primary Care Provider] - 1-2 days
[2016-11-11 15:21] LABS: Anisocytosis Slight; Appearance,Urine Clear (Clear); Basophils # (A) 0.1 k/uL (0-0.2); Basophils % (A) 1 %; Bilirubin,Urine Negative (Negative); CH 28.2; CHCM 30.7; Eosinophils # (A) 0.3 k/uL (0-0.7); Eosinophils % (A) 3 %; Glucose,Urine (UA) Negative (Negative); HCT 34.8 % (39.0-53.0); HDW 3.09; HGB 10.2 gm/dL (13.0-17.5); Hypochromasia Marked; Ketones,Urine Negative (Negative); Leukocyte Esterase,Urine Negative (Negative); Luc # (Auto) 0.25; Luc % (Auto) 3; Lymphocytes # (A) 0.8 k/uL (1.0-4.8); Lymphocytes % (A) 8 %; MCH 27.1 pg (25.0-35.0); MCHC 29.3 g/dL (31.0-37.0); MCV 92.7 fL (80.0-100.0); Mean Platelet Volume 7.7; Monocytes # (A) 0.5 k/uL (0-1.0); Monocytes % (A) 5 %; Neutrophils % (A) 81 %; Nitrite,Urine Negative (Negative); PH, Urine 6.5 (5.0-8.0); Protein,Urine Trace (Negative); RBC 3.76 m/uL (4.30-5.90); RDW 17.9 % (11.5-15.5); Specific Gravity,Urine 1.013 (1.001-1.035); UA Billing (MACRO vs. MICRO) CHEM; Urobilinogen,Urine <2.0 mg/dL (<2.0); WBC 9.9 k/uL (3.8-10.6)
[2016-11-11 15:30] LABS: ALT 49 U/L (21-72); AST 37 U/L (17-59); Alkaline Phosphatase 112 U/L (38-126); Anion Gap 8 mmol/L; Blood Urea Nitrogen 20 mg/dL (9-20); Calcium 8.8 mg/dL (8.4-10.2); Carbon Dioxide 29 mmol/L (22-30); Chloride 100 mmol/L (98-107); Glucose 85 mg/dL (74-99); Magnesium 2.1 mg/dL (1.6-2.3); Non-African American GFR(MDRD) >60 (>60 ml/min/1.73 sqM); Phosphorous 3.5 mg/dL (2.5-4.5); Potassium 4.9 mmol/L (3.5-5.1); Sodium 137 mmol/L (137-145); Total Bilirubin 0.8 mg/dL (0.2-1.3); Total Protein 6.6 g/dL (6.3-8.2)
--- NOTE | 2016-11-11 15:32 | XR ---
EXAMINATION TYPE: XR chest 2V DATE OF EXAM: 11/11/2016 3:26 PM COMPARISON: 10/21/2015 INDICATION: Weakness TECHNIQUE: Single frontal view of the chest is obtained. FINDINGS: The heart size is normal. The pulmonary vasculature is normal. There are small bilateral pleural effusions. Emphysematous changes with blebs and bulla are present. There is increased lung markings within the lingula or left lower lobe. Correlate for atelectasis or pneumonia. IMPRESSION: 1. Small bilateral pleural effusions. 2. COPD. 3. Clinical correlation recommended for left lower lobe atelectasis or pneumonia.
[2016-11-11 15:36] LABS: Prothrombin Time 10.3 sec (9.0-12.0)
[2016-11-11 15:37] LABS: Partial Thromboplastin Time 22.3 sec (22.0-30.0)
[2016-11-11 15:43] VITALS: TEMP 98.5
[2016-11-11 16:05] VITALS: BP 154/64; PULSE 87; RESP 18
[2016-11-11 16:27] LABS: Creatine Kinase <20 U/L (55-170)
[2016-11-11 16:41] LABS: Creatine Kinase MB 1.6 ng/mL (0.0-2.4); Troponin I 0.025 ng/mL (0.000-0.034)
== END 2016-11-11 16:14 | disposition home or self-care (01) ==
LOC: EC 13:54
DX: R53.1 Weakness (principal); I10 Essential (primary) hypertension; I25.2 Old myocardial infarction; J44.9 Chronic obstructive pulmonary disease, unspecified; I50.9 Heart failure, unspecified; I25.10 Atherosclerotic heart disease of native coronary artery without angina pectoris; N40.0 Benign prostatic hyperplasia without lower urinary tract symptoms; Z88.1 Allergy status to other antibiotic agents; Z95.5 Presence of coronary angioplasty implant and graft; Z88.8 Allergy status to other drugs, medicaments and biological substances; Z99.3 Dependence on wheelchair; Z79.02 Long term (current) use of antithrombotics/antiplatelets; Z86.73 Personal history of transient ischemic attack (TIA), and cerebral infarction without residual deficits; Z79.82 Long term (current) use of aspirin; Z91.012 Allergy to eggs; Z91.018 Allergy to other foods; Z79.899 Other long term (current) drug therapy
CPT/HCPCS: 36415; 71020; 80053; 81003; 82550; 82553; 83735; 84100; 84443; 84484; 85025; 85610; 85730; 87086; 93005; 96360; 99285

== ENCOUNTER 2016-11-24 21:22 | Inpatient (IN) | payer MEDICARE ==
[2016-11-24] MEDS ORDERED: HYDROmorphone 1 MG/ML 1 ML SYRINGE IVP STA (22:37)
[2016-11-24] MEDS ORDERED: ONDANSETRON 4 MG/2 ML VIAL IVP STA (22:37)
[2016-11-24] MEDS ORDERED: SODIUM CHLORIDE 0.9% 500 ML IV STA (22:37)
[2016-11-24 23:25] LABS: Anisocytosis Slight; Basophils # (A) 0.1 k/uL (0-0.2); Basophils % (A) 0 %; CH 27.4; CHCM 31.2; Eosinophils # (A) 0.1 k/uL (0-0.7); Eosinophils % (A) 1 %; HCT 31.8 % (39.0-53.0); HGB 9.8 gm/dL (13.0-17.5); Hypochromasia Moderate; Luc # (Auto) 0.37; Luc % (Auto) 2; Lymphocytes # (A) 0.6 k/uL (1.0-4.8); Lymphocytes % (A) 3 %; MCH 27.2 pg (25.0-35.0); MCHC 30.8 g/dL (31.0-37.0); MCV 88.2 fL (80.0-100.0); Mean Platelet Volume 7.1; Monocytes # (A) 0.9 k/uL (0-1.0); Monocytes % (A) 4 %; Neutrophils # (A) 19.4 k/uL (1.3-7.7); Neutrophils % (A) 90 %; RDW 17.1 % (11.5-15.5); WBC 21.5 k/uL (3.8-10.6); WBC (Perox) 22.01
[2016-11-24 23:33] LABS: INR 1.3 (<1.1); Partial Thromboplastin Time 23.9 sec (22.0-30.0); Prothrombin Time 12.9 sec (9.0-12.0)
[2016-11-24 23:40] LABS: ALT 29 U/L (21-72); AST 26 U/L (17-59); Alkaline Phosphatase 116 U/L (38-126); Amylase <30 U/L (30-110); Anion Gap 9 mmol/L; Blood Urea Nitrogen 26 mg/dL (9-20); Calcium 9.4 mg/dL (8.4-10.2); Carbon Dioxide 29 mmol/L (22-30); Chloride 98 mmol/L (98-107); Glucose 102 mg/dL (74-99); Magnesium 1.8 mg/dL (1.6-2.3); Non-African American GFR(MDRD) >60 (>60 ml/min/1.73 sqM); Potassium 5.1 mmol/L (3.5-5.1); Sodium 136 mmol/L (137-145); Total Bilirubin 0.5 mg/dL (0.2-1.3); Total Protein 6.1 g/dL (6.3-8.2)
[2016-11-25] MEDS ORDERED: SODIUM CHLORIDE 0.9% 1,000 ML IV ONE
--- NOTE | 2016-11-25 00:11 | XR ---
Exam: FILM CXR 11/24/16 at 2220 hrs. Chest PA and lateral views INDICATION: Comparison chest radiograph 11/11/16 COMPARISON: None FINDINGS: The cardiomediastinal silhouette is within normal limits. Lungs are clear. Stable minimal blunting of the costophrenic angles bilaterally. Stable radiographic appearance of the osseous structures without acute osseous abnormality.. No acute osseous abnormality. IMPRESSION: Stable radiographic appearance of the chest compared to prior examination of 11/11/16. No acute infiltrate. Minimal bilateral pleural effusion without significant change. Heart size normal. No venous congestion. No acute osseous abnormality..
--- NOTE | 2016-11-25 00:16 | XR ---
Exam: FILM ABDOMEN INDICATION: Abdominal pain COMPARISON: Chest radiograph 11/24/16, abdominal radiograph 10/24/16 FINDINGS: 3 frontal views of the abdomen obtained. Bowel gas pattern non-obstructive. No free air under the diaphragm. Prominent fecal burden throughout the colon. Appearance of diverticulosis of the sigmoid. Cholecystectomy clips. No radiopaque renal calculi identified. Degenerative changes and scoliosis of the thoracolumbar spine and degenerative changes of the hip joints again noted. IMPRESSION: Bowel gas pattern non-obstructive. No free air under diaphragm. Prominent fecal burden throughout the colon. Appearance of diverticulosis of the sigmoid. Cholecystectomy clips. No radiopaque renal calculi identified.
[2016-11-25] MEDS ORDERED: IPRATROPIUM-ALBUTEROL 3 ML NEB INHALATION STA (00:20)
--- NOTE | 2016-11-25 00:22 | ED ---
Abdominal Pain HPI <Jefry Melissa - Last Filed: 11/25/16 03:18> - General Source: EMS Mode of arrival: EMS <DinoElis - Last Filed: 11/25/16 07:13> - General Chief Complaint: Abdominal Pain Stated Complaint: abd pain Time Seen by Provider: 11/24/16 21:51 - History of Present Illness Initial Comments: Patient is an 85-year-old male with multiple chronic medical conditions presenting to emergency department with increased chest pain and burning epigastric abdominal pain for approximately 2 days. Patient was [facility] facility on the November 08 and has been home since then. Patient's family report that he has been declining in health rapidly since then. Patient's is current give her caregiver at this time and is unable to take care of him well enough.. He states that he is also became increasingly short of breath and has had a significant cough. He was admitted in October at this hospital for sepsis with pneumonia. Patient has history of coronary disease, COPD, hypertension, hyperlipidemia, diabetes. (Elis Sun ) - Related Data Home Medications Medication Instructions Recorded Confirmed Tamsulosin HCl [Flomax] 0.4 mg PO DAILY 04/05/16 11/25/16 Budesonide [Pulmicort] 0.5 mg INHALATION BID PRN 09/27/16 11/25/16 Atorvastatin [Lipitor] 40 mg PO HS 11/11/16 11/25/16 Ferrous Sulfate [Feosol] 325 mg PO DAILY 11/11/16 11/25/16 Ipratropium-Albuterol Nebulize 3 ml INHALATION TID PRN 11/11/16 11/25/16 [Duoneb 0.5 mg-3 mg/3 ml Soln] Aspirin 81 mg PO DAILY 11/25/16 11/25/16 Cholecalciferol (Vitamin D3) 1,000 units PO DAILY 11/25/16 11/25/16 [Vitamin D] Metoprolol Tartrate [Metoprolol 12.5 mg PO BID 11/25/16 11/25/16 Tartrate] Nitroglycerin [Nitroglycerin] 1 tab SUBLINGUAL PRN 11/25/16 Previous Rx's Medication Instructions Recorded Clopidogrel [Plavix] 75 mg PO DAILY #90 tab 08/31/16 amLODIPine [Norvasc] 5 mg PO DAILY #90 tab 08/31/16 ALPRAZolam [Xanax] 0.25 mg PO TID PRN #21 tab 10/25/16 HYDROcodone/APAP 7.5-325MG [[place] 1 tab PO Q4H PRN #42 tab 10/25/16 7.5-325] Allergies Allergy/AdvReac Type Severity Reaction Status Date / Time ciprofloxacin [From Cipro] Allergy Mild Hives Verified 11/25/16 05:51 ciprofloxacin HCl Allergy Mild Hives Verified 11/25/16 05:51 [From Cipro] acetic acid Allergy Rash/Hives Verified 11/25/16 05:51 [From [place] Vinegar and Water] egg Allergy Unknown Verified 11/25/16 05:51 tomato Allergy Rash/Hives Verified 11/25/16 05:51 methylprednisolone AdvReac Severe Abdominal Verified 11/25/16 05:51 [From Medrol] Pain Review of Systems ROS Other: All systems not noted in ROS Statement are negative. <Jefry Melissa - Last Filed: 11/25/16 03:18> ROS Other: All systems not noted in ROS Statement are negative. <Elis Sun - Last Filed: 11/25/16 07:13> ROS Statement: Those systems with pertinent positive or pertinent negative responses have been documented in the HPI. Past Medical History Past Medical History: Coronary Artery Disease (CAD), Heart Failure, COPD, CVA/ TIA, Diabetes Mellitus, Eye Disorder, Hypertension, Myocardial Infarction (MT), Pneumonia, Prostate Disorder Additional Past Medical History / Comment(s): several TIAs, CVA- R leg affected a little- not ambulatory but transfers from wheelchair to bed with help, unsteady on feet. BPH, glaucoma-one wet and one dry, pancreatitis, allergies that cause his skin to itch-vinegar/tomatoes/dairy, Last Myocardial Infarction Date:: August 2016 History of Any Multi-Drug Resistant Organisms: None Reported Past Surgical History: Appendectomy, Cholecystectomy, Heart Catheterization With Stent Additional Past Surgical History / Comment(s): left carotid surgery cataract surgery, deviated septum sx, cataracts removed bilaterally with lens implants, PICC line/removed Past Anesthesia/Blood Transfusion Reactions: Unable to Obtain Additional Past Anesthesia/Blood Transfusion Reaction / Comment(s): no hx at [facility] Date of Last Stent Placement:: 03/2014 Past Psychological History: Anxiety Additional Psychological History / Comment(s): pt currently at [facility] Smoking Status: Never smoker Past Alcohol Use History: None Reported Additional Past Alcohol Use History / Comment(s): Pt states he started smoking at age 14 yrs and quit in 2009. He was mostly a pipe smoker and did smoke cigarettes the last few yrs that he smoked. Past Drug Use History: None Reported - Past Family History Mother Family Medical History: Unable to Obtain Additional Family Medical History / Comment(s): Mother at 94 yrs. Father Family Medical History: Myocardial Infarction (MT) Additional Family Medical History / Comment(s): of MT in his 60's <Elis Sun - Last Filed: 11/25/16 07:13> General Exam <Jefry Melissa - Last Filed: 11/25/16 03:18> General appearance: alert, in no apparent distress Head exam: Present: atraumatic, normocephalic, normal inspection Eye exam: Present: normal appearance, PERRL, EOMI. Absent: scleral icterus, conjunctival injection, periorbital swelling ENT exam: Present: normal exam, mucous membranes moist Neck exam: Present: normal inspection. Absent: tenderness, meningismus, lymphadenopathy Respiratory exam: Present: rhonchi, other (Decreased breath sounds of left lower lobe.). Absent: normal lung sounds bilaterally, respiratory distress, wheezes, rales, stridor Cardiovascular Exam: Present: regular rate, normal rhythm, normal heart sounds. Absent: systolic murmur, diastolic murmur, rubs, gallop, clicks GI/Abdominal exam: Present: soft, normal bowel sounds. Absent: distended, tenderness, guarding, rebound, rigid Extremities exam: Present: normal inspection, full ROM, normal capillary refill. Absent: tenderness, pedal edema, joint swelling, calf tenderness Back exam: Present: normal inspection Neurological exam: Present: alert, oriented X3, CN II-XII intact Psychiatric exam: Present: normal affect, normal mood Skin exam: Present: warm, dry, intact, normal color. Absent: rash <Elis Sun - Last Filed: 11/25/16 07:13> - General Exam Comments Initial Comments: is a pleasant 85-year-old male. (Elis Sun) Course <Jefry Melissa - Last Filed: 11/25/16 03:18> <Elis Sun - Last Filed: 11/25/16 07:13> Vital Signs 11/24/16 11/25/16 11/25/16 21:26 00:36 00:49 Temperature 98.1 F 99.5 F Pulse Rate 117 H 104 H 103 H Respiratory 20 18 Rate Blood Pressure 192/93 141/65 O2 Sat by Pulse 95 Oximetry 11/25/16 11/25/16 11/25/16 00:59 01:14 02:10 Temperature Pulse Rate 80 117 H 100 Respiratory 20 18 Rate Blood Pressure 156/80 134/71 O2 Sat by Pulse 94 L 95 Oximetry 11/25/16 11/25/16 02:36 04:00 Temperature Pulse Rate 97 101 H Respiratory 20 20 Rate Blood Pressure 146/70 142/79 O2 Sat by Pulse 96 95 Oximetry - Reevaluation(s) Reevaluation #1: 11/25/16 03:18 Patient reevaluated by myself, Dr. Melissa. Patient resting comfortably in bed. Patient and family updated on results and plan. Case discussed with practitioner Del, covering for Dr. Spicer, covering for Dr. Fraser. Cardiology and pulmonary will be consulted. (Jefry Melissa) Medical Decision Making - Lab Data Result diagrams: 11/24/16 23:03 11/24/16 23:03 <Jefry Melissa - Last Filed: 11/25/16 03:18> - Lab Data Result diagrams: 11/24/16 23:03 11/24/16 23:03 - Radiology Data Radiology results: report reviewed <Elis Sun - Last Filed: 11/25/16 07:13> - Medical Decision Making Patient is an 85-year-old chronically ill male with a history of increased chest pain and a burning epigastric sensation for approximately [address] abdomen and also reviewed. Patient does have evidence of a 4 x 3 cm mass in the lung. Patient's labs reviewed and he does have an elevated white blood cell count elevated lactic acid. At this time there is no obvious source of infection is chest x-ray shows no acute changes from previous. We cannot diagnose of sepsis at this time. He did have an elevated troponin. We'll place the patient on heparin and consult cardiology. I also consult Dr. Ferguson for pulmonology. PAtient will be continued with breathing treatments and pain management. (Elis Sun) - Lab Data Lab Results 11/24/16 11/24/16 11/24/16 Range/Units 23:03 23:03 23:03 WBC 21.5 H (3.8-10.6) k/uL RBC 3.60 L (4.30-5.90) m/uL Hgb 9.8 L (13.0-17.5) gm/dL Hct 31.8 L (39.0-53.0) % MCV 88.2 (80.0-100.0) fL MCH 27.2 (25.0-35.0) pg MCHC 30.8 L (31.0-37.0) g/dL RDW 17.1 H (11.5-15.5) % Plt Count 295 (150-450) k/uL Neutrophils % 90 % Lymphocytes % 3 % Monocytes % 4 % Eosinophils % 1 % Basophils % 0 % Neutrophils # 19.4 H (1.3-7.7) k/uL Lymphocytes # 0.6 L (1.0-4.8) k/uL Monocytes # 0.9 (0-1.0) k/uL Eosinophils # 0.1 (0-0.7) k/uL Basophils # 0.1 (0-0.2) k/uL Hypochromasia Moderate Anisocytosis Slight PT (9.0-12.0) sec INR (<1.1) APTT (22.0-30.0) sec Sodium 136 L (137-145) mmol/L Potassium 5.1 (3.5-5.1) mmol/L Chloride 98 (98-107) mmol/L Carbon Dioxide 29 (22-30) mmol/L Anion Gap 9 mmol/L BUN 26 H (9-20) mg/dL Creatinine 0.90 (0.66-1.25) mg/dL Est GFR (MDRD) Af Amer >60 (>60 ml/min/1.73 sqM) Est GFR (MDRD) Non-Af >60 (>60 ml/min/1.73 sqM) Glucose 102 H (74-99) mg/dL Plasma Lactic Acid Alonso 2.3 H* (0.7-2.0) mmol/L Calcium 9.4 (8.4-10.2) mg/dL Magnesium 1.8 (1.6-2.3) mg/dL Total Bilirubin 0.5 (0.2-1.3) mg/dL AST 26 (17-59) U/L ALT 29 (21-72) U/L Alkaline Phosphatase 116 (38-126) U/L Total Creatine Kinase (55-170) U/L CK-MB (CK-2) (0.0-2.4) ng/mL CK-MB (CK-2) Rel Index Troponin I (0.000-0.034) ng/mL NT-Pro-B Natriuret Pep pg/mL Total Protein 6.1 L (6.3-8.2) g/dL Albumin 2.9 L (3.5-5.0) g/dL Amylase <30 L (30-110) U/L Lipase 20 L (23-300) U/L Urine Color Urine Appearance (Clear) Urine pH (5.0-8.0) Ur Specific [place] (1.001-1.035) Urine Protein (Negative) Urine Glucose (UA) (Negative) Urine Ketones (Negative) Urine Blood (Negative) Urine Nitrate (Negative) Urine Bilirubin (Negative) Urine Urobilinogen (<2.0) mg/dL Ur Leukocyte Esterase (Negative) Urine RBC (0-5) /hpf Urine WBC (0-5) /hpf Ur Squamous Epith Cells (0-4) /hpf Hyaline Casts (0-2) /lpf Urine Mucus (None) /hpf 11/24/16 11/24/16 11/24/16 Range/Units 23:03 23:03 23:03 WBC (3.8-10.6) k/uL RBC (4.30-5.90) m/uL Hgb (13.0-17.5) gm/dL Hct (39.0-53.0) % MCV (80.0-100.0) fL MCH (25.0-35.0) pg MCHC (31.0-37.0) g/dL RDW (11.5-15.5) % Plt Count (150-450) k/uL Neutrophils % % Lymphocytes % % Monocytes % % Eosinophils % % Basophils % % Neutrophils # (1.3-7.7) k/uL Lymphocytes # (1.0-4.8) k/uL Monocytes # (0-1.0) k/uL Eosinophils # (0-0.7) k/uL Basophils # (0-0.2) k/uL Hypochromasia Anisocytosis PT 12.9 H (9.0-12.0) sec INR 1.3 (<1.1) APTT 23.9 (22.0-30.0) sec Sodium (137-145) mmol/L Potassium (3.5-5.1) mmol/L Chloride (98-107) mmol/L Carbon Dioxide (22-30) mmol/L Anion Gap mmol/L BUN (9-20) mg/dL Creatinine (0.66-1.25) mg/dL Est GFR (MDRD) Af Amer (>60 ml/min/1.73 sqM) Est GFR (MDRD) Non-Af (>60 ml/min/1.73 sqM) Glucose (74-99) mg/dL Plasma Lactic Acid Alonso (0.7-2.0) mmol/L Calcium (8.4-10.2) mg/dL Magnesium (1.6-2.3) mg/dL Total Bilirubin (0.2-1.3) mg/dL AST (17-59) U/L ALT (21-72) U/L Alkaline Phosphatase (38-126) U/L Total Creatine Kinase <20 L (55-170) U/L CK-MB (CK-2) 1.2 (0.0-2.4) ng/mL CK-MB (CK-2) Rel Index 0.0 Troponin I 0.136 H* (0.000-0.034) ng/mL NT-Pro-B Natriuret Pep pg/mL Total Protein (6.3-8.2) g/dL Albumin (3.5-5.0) g/dL Amylase (30-110) U/L Lipase (23-300) U/L Urine Color Urine Appearance (Clear) Urine pH (5.0-8.0) Ur Specific [place] (1.001-1.035) Urine Protein (Negative) Urine Glucose (UA) (Negative) Urine Ketones (Negative) Urine Blood (Negative) Urine Nitrate (Negative) Urine Bilirubin (Negative) Urine Urobilinogen (<2.0) mg/dL Ur Leukocyte Esterase (Negative) Urine RBC (0-5) /hpf Urine WBC (0-5) /hpf Ur Squamous Epith Cells (0-4) /hpf Hyaline Casts (0-2) /lpf Urine Mucus (None) /hpf 11/24/16 11/25/16 11/25/16 Range/Units 23:03 00:02 02:52 WBC (3.8-10.6) k/uL RBC (4.30-5.90) m/uL Hgb (13.0-17.5) gm/dL Hct (39.0-53.0) % MCV (80.0-100.0) fL MCH (25.0-35.0) pg MCHC (31.0-37.0) g/dL RDW (11.5-15.5) % Plt Count (150-450) k/uL Neutrophils % % Lymphocytes % % Monocytes % % Eosinophils % % Basophils % % Neutrophils # (1.3-7.7) k/uL Lymphocytes # (1.0-4.8) k/uL Monocytes # (0-1.0) k/uL Eosinophils # (0-0.7) k/uL Basophils # (0-0.2) k/uL Hypochromasia Anisocytosis PT (9.0-12.0) sec INR (<1.1) APTT (22.0-30.0) sec Sodium (137-145) mmol/L Potassium (3.5-5.1) mmol/L Chloride (98-107) mmol/L Carbon Dioxide (22-30) mmol/L Anion Gap mmol/L BUN (9-20) mg/dL Creatinine (0.66-1.25) mg/dL Est GFR (MDRD) Af Amer (>60 ml/min/1.73 sqM) Est GFR (MDRD) Non-Af (>60 ml/min/1.73 sqM) Glucose (74-99) mg/dL Plasma Lactic Acid Alonso 1.5 (0.7-2.0) mmol/L Calcium (8.4-10.2) mg/dL Magnesium (1.6-2.3) mg/dL Total Bilirubin (0.2-1.3) mg/dL AST (17-59) U/L ALT (21-72) U/L Alkaline Phosphatase (38-126) U/L Total Creatine Kinase (55-170) U/L CK-MB (CK-2) (0.0-2.4) ng/mL CK-MB (CK-2) Rel Index Troponin I (0.000-0.034) ng/mL NT-Pro-B Natriuret Pep 1830 pg/mL Total Protein (6.3-8.2) g/dL Albumin (3.5-5.0) g/dL Amylase (30-110) U/L Lipase (23-300) U/L Urine Color Yellow Urine Appearance Clear (Clear) Urine pH 6.0 (5.0-8.0) Ur Specific [place] 1.018 (1.001-1.035) Urine Protein 1+ H (Negative) Urine Glucose (UA) Negative (Negative) Urine Ketones Negative (Negative) Urine Blood Negative (Negative) Urine Nitrate Negative (Negative) Urine Bilirubin Negative (Negative) Urine Urobilinogen 2.0 (<2.0) mg/dL Ur Leukocyte Esterase Negative (Negative) Urine RBC 1 (0-5) /hpf Urine WBC 1 (0-5) /hpf Ur Squamous Epith Cells <1 (0-4) /hpf Hyaline Casts 3 H (0-2) /lpf Urine Mucus Occasional H (None) /hpf 11/25/16 01:00 EKG shows sinus tachycardia with occasional PVCs. Ventricular rate of 170 bpm. ID interval 156 ms. QRS duration 74 ms. QT/QTc is 326 at 435 ms. (Elis Sun) - Radiology Data Stable radiographic appearance of chest compared to prior examination 11/11/16. No acute infiltrate. Minimal bilateral pleural effusion without significant change. Heart size is normal. No venous congestion. No acute osseous abnormal only. CT chest, abdomen and pelvis show New medial right lower debra infrahilar region there is a 4 by 3cm mass extending from hyla distally. Neoplastic etiology can not be excluded. this may represent a round pneumonia, however clinical findings should be coordinated. There is a 6mm nodule and the right applicable lung there is a 2mm density. No PE. Trace pleural effusion. Liver Cysts. CT abdomen and pelvis make note of simple cyst in liver, too small to characterize low density lesion of liver stable. Ecidnce of diverticulosis. (Elis Sun) Disposition <Jefry Melissa - Last Filed: 03/13/17 03:18> Time of Disposition: 05:00 <Elis Sun - Last Filed: 11/25/16 07:13> Clinical Impression: Chest pain, Unstable angina, CAD (coronary artery disease), Weakness, Acute exacerbation of chronic obstructive airways disease, Pneumonia Disposition: ADMITTED IP TO THIS HOSP Condition: Stable
[2016-11-25 00:43] LABS: Appearance,Urine Clear (Clear); Bilirubin,Urine Negative (Negative); Glucose,Urine (UA) Negative (Negative); Ketones,Urine Negative (Negative); Leukocyte Esterase,Urine Negative (Negative); Mucus,Urine Occasional /hpf; Nitrite,Urine Negative (Negative); Particle Count 3541; Protein,Urine 1+ (Negative); RBC,Urine 1 /hpf (0-5); Specific Gravity,Urine 1.018 (1.001-1.035); Squamous Epithelial Cell,Urine <1 /hpf (0-4); UA Billing (MACRO vs. MICRO) MICRO; WBC,Urine 1 /hpf (0-5)
[2016-11-25] MEDS: SODIUM CHLORIDE 0.9% 1,000 ML IV SCH (01:06)
[2016-11-25] MEDS ORDERED: RX INFO: IV CONTRAST WAS GIVEN 1 EACH MISC MISCELLANE PRN ×2 (01:11→01:12)
[2016-11-25] MEDS ORDERED: HYDROmorphone 1 MG/ML 1 ML SYRINGE IVP STA (01:50)
--- NOTE | 2016-11-25 02:39 | CT ---
Exam: CTA CHEST INDICATION: Pain TECHNIQUE: Multiple, contiguous 2 mm mm axial cuts of the chest are obtained following the administration of IV contrast. High resolution axial image as well as, sagittal and coronal reformatted images are available. COMPARISON: Chest radiograph 11/24/16, CT abdomen pelvis 04/05/16 FINDINGS: No medial right lower lobe infrahilar region there is a 4 x 3.5 cm mass extending from the allie distally. Neoplastic etiology will need to be excluded. In this right lower lobe there is a 6 mm nodule. In the right apical lung suspected 2 mm nodular density. No pulmonary embolism. Trace right pleural effusion. Subsegmental atelectasis in the medial lung bases more inferiorly. Subsegmental atelectasis in the lingula. Emphysematous changes of the lungs. A few shotty mediastinal lymph node measuring 5 mm. There is an AP window lymph node measuring 1.3 x 1 cm. Thoracic aorta normal caliber without dissection with nonvascular calcification. Heart size normal. No pericardial effusion. Stable simple cyst of the left lobe liver measuring 3.5 cm. Additional 1. 5 cm simple cysts of the liver. There are 3 additional too small to characterize low-density lesions in the liver stable since prior exam. Adrenal glands are unremarkable. Stable bilateral kidney parapelvic cysts. Multilevel degenerative changes of the thoracic spine.. IMPRESSION: No medial right lower lobe infrahilar region there is a 4 x 3.5 cm mass extending from the allie distally. Neoplastic etiology will need to be excluded. This may represent a round pneumonia however correlation with clinical findings is advised. In this right lower lobe there is a 6 mm nodule. In the right apical lung suspected 2 mm nodular density. No pulmonary embolism. Trace right pleural effusion. 1.3 x 1 cm AP window lymph node. Emphysematous changes of the lungs. 6 mm nodule right lower lobe. Possible 2 mm nodule right upper lobe. Simple cysts of the liver. Additional too small to characterize low- density lesions of the liver are again noted stable since prior CT abdomen pelvis exam. [employer] 11/25/16 02:42 Verify Receipt Verified receipt with KELLIE Gillis on 11/25 02: 42 (-04:00)
--- NOTE | 2016-11-25 02:44 | CT ---
Exam: CT ABDOMEN + PELVIS With Contrast INDICATION: Pain TECHNIQUE: Multiple, contiguous axial cuts of the abdomen and pelvis are obtained from the lung bases to the ischial tuberosities. Intravenous contrast administered. Sagittal and coronal reformatted images are available. COMPARISON: [facility] exam 11/24/16, CT abdomen pelvis 04/05/16 FINDINGS: Trace right effusion. Subsegmental atelectasis lung bases. Hepatic simple cysts are noted stable. Additional too small to characterize low-density lesions of liver also appear stable Bilateral parapelvic simple cysts are again noted stable. Scattered diverticula of the colon with more predominant involvement of the sigmoid without diverticulitis. Appendix is not seen however no secondary signs for acute appendicitis. Cholecystectomy. Common bile duct dilated to 12 mm previously approximately 8 mm. No calcified common bile duct stones seen. Spleen appears small as on prior exam. Pancreas, adrenal glands are unremarkable. Aorta normal caliber with vascular calcifications. No urinary tract stones or hydronephrosis. Unopacified urinary bladder demonstrates several small urinary bladder diverticula largest approximately 2 cm. No retroperitoneal adenopathy or pelvic adenopathy. Multilevel degenerative changes of the spine and hip joints. No acute osseous abnormality. IMPRESSION: 1. Trace right pleural effusion with subsegmental atelectasis lung bases. 2. Stable simple cysts of the liver. Additional too small to characterize low-density lesions of the liver stable since prior exam. 3. Cholecystectomy. Common bile duct is dilated to 12 mm previously 8 mm. No calcified common bile duct stones. 4. Diverticulosis of the colon without diverticulitis. No free fluid or free air or bowel obstruction. 5. No adenopathy. 6. Urinary bladder diverticulum are noted.
[2016-11-25] MEDS ORDERED: NITROGLYCERIN SL TABS 0.4 MG TAB SUBLINGUAL PRN (03:22)
[2016-11-25] MEDS ORDERED: HEPARIN SODIUM,PORCINE 5,000 UNIT/ML 1 ML VIAL IV ONE (03:22)
[2016-11-25] MEDS ORDERED: IPRATROPIUM-ALBUTEROL 3 ML NEB INHALATION PRN (03:26)
[2016-11-25] MEDS ORDERED: HEPARIN SODIUM,PORCINE/D5W PMX 25,000 UNIT in DEXTROSE/WATER 1 500ML.BAG IV SCH (03:30)
[2016-11-25 05:04] LABS: Glucose,Whole Blood 104 mg/dL (75-99)
[2016-11-25 05:32] LABS: Creatine Kinase <20 U/L (55-170)
[2016-11-25 05:41] LABS: Creatine Kinase MB 1.2 ng/mL (0.0-2.4)
[2016-11-25] MEDS ORDERED: HYDROmorphone 1 MG/ML 1 ML SYRINGE IVP SCH (06:00)
[2016-11-25] MEDS ORDERED: methylPREDNISolone SOD SUCCI 125 MG/2 ML VIAL IV SCH (06:00)
[2016-11-25] MEDS ORDERED: Magnesium Replacement Protocol 1 EACH MISC MISCELLANE PRN (07:03)
[2016-11-25] MEDS ORDERED: INSULIN LISPRO (humaLOG) 300 UNIT/3 ML VIAL SQ SCH ×3 (07:15→12:30)
[2016-11-25] MEDS: MAGNESIUM SULFATE-D5W PMX 1 GM in DEXTROSE/WATER 1 100ML.BAG IVPB SCH ×2 (07:28→08:59)
[2016-11-25 07:30] LABS: Creatine Kinase MB 1.8 ng/mL (0.0-2.4)
[2016-11-25 07:37] LABS: Troponin I 0.147 ng/mL (0.000-0.034)
--- NOTE | 2016-11-25 09:33 | P.CNPUL ---
History of Present Illness Consult date: 11/25/16 Reason for consult: lung mass History of present illness: This is a 85-year-old male patient with known history of coronary artery disease who presented to the hospital because of an acute chest pain. The patient was in the hospital for the same around August 2016 and back then he had a coronary angiogram that was done by Dr. Rojas that showed a 50% stenosis proximally at the site of the previous stent and beyond the stenosis there was minimal disease in addition to a 80-90% stenosis within the circumflex and the bridge collaterals to the right coronary artery from the left. Based on this, the patient underwent a intervention with stenting of the distal circumflex without any complication and he was discharged home. He went to rehab and following that he went home to be readmitted for chest pain and he was diagnosed having an acute non-ST segment elevation myocardial infarction. His EKG showed sinus tachycardia with occasional premature ventricular beats otherwise the rest of the EKG was essentially within normal limits. His troponin peaked at 0.147. The patient's echocardiogram from August 2016 showed a preserved LV function with an ejection fraction of 55-60%. He also had a right ventricular systolic pressure of 44 mmHg. No significant valvular abnormalities. The patient borderline concentric left ventricular hypertrophy. The patient during this current admission had a CT angios the chest that showed a 4 x 3.5 cm mass in the superior segment of the right lower lobe in addition to a 6 mm nodule in the right lower lobe and a 2 mm nodule in the right apical part of the lung. The patient had no evidence of pulmonary embolism. Going back to a previous PET scan that was done in 2014, there was a suggestion of some abnormalities and uptake within the same involved area and as such this is most likely an evolving lung cancer. Patient has no shortness of breath. No hemoptysis at this point. No fever. No chills. No swelling in lower extremities. He is awake and alert. His health in general has been declining over this past several months. Review of Systems A full review of system was done and the positive findings are all mentioned above in history of present illness Past Medical History Past Medical History: Coronary Artery Disease (CAD), Heart Failure, COPD, CVA/ TIA, Diabetes Mellitus, Eye Disorder, Hypertension, Myocardial Infarction ([place]), Pneumonia, Prostate Disorder Additional Past Medical History / Comment(s): Coronary artery disease with recent coronary intervention and stenting of the circumflex, several TIAs, CVA involving the right side with some right lower extremity weakness and the patient is moving around with the help of a wheelchair and he has difficulties with gait, BPH, glaucoma, lung mass details discussed above, history of pancreatitis, macular degeneration and the patient is legally blind, BPH, hypertension Last Myocardial Infarction Date:: August 2016 History of Any Multi-Drug Resistant Organisms: None Reported Past Surgical History: Appendectomy, Cholecystectomy, Heart Catheterization With Stent Additional Past Surgical History / Comment(s): left carotid surgery cataract surgery, deviated septum sx, cataracts removed bilaterally with lens implants, PICC line/removed Past Anesthesia/Blood Transfusion Reactions: Unable to Obtain Additional Past Anesthesia/Blood Transfusion Reaction / Comment(s): no hx at [facility] Date of Last Stent Placement:: 03/2014 Past Psychological History: Anxiety Additional Psychological History / Comment(s): pt currently at [facility] Smoking Status: Never smoker Past Alcohol Use History: None Reported Additional Past Alcohol Use History / Comment(s): Pt states he started smoking at age 14 yrs and quit in 2009. He was mostly a pipe smoker and did smoke cigarettes the last few yrs that he smoked. Past Drug Use History: None Reported - Past Family History Mother Family Medical History: Unable to Obtain Additional Family Medical History / Comment(s): Mother at 94 yrs. Father Family Medical History: Myocardial Infarction ([place]) Additional Family Medical History / Comment(s): of [place] in his 60's Medications and Allergies Home Medications Medication Instructions Recorded Confirmed Type Tamsulosin HCl [Flomax] 0.4 mg PO DAILY 04/05/16 11/25/16 History Budesonide [Pulmicort] 0.5 mg INHALATION BID PRN 09/27/16 11/25/16 History Atorvastatin [Lipitor] 40 mg PO HS 11/11/16 11/25/16 History Ferrous Sulfate [Feosol] 325 mg PO DAILY 11/11/16 11/25/16 History Ipratropium-Albuterol Nebulize 3 ml INHALATION TID PRN 11/11/16 11/25/16 History [Duoneb 0.5 mg-3 mg/3 ml Soln] Aspirin 81 mg PO DAILY 11/25/16 11/25/16 History Cholecalciferol (Vitamin D3) 1,000 units PO DAILY 11/25/16 11/25/16 History [Vitamin D] Metoprolol Tartrate [Metoprolol 12.5 mg PO BID 11/25/16 11/25/16 History Tartrate] Nitroglycerin [Nitroglycerin] 1 tab SUBLINGUAL PRN 11/25/16 History Allergies Allergy/AdvReac Type Severity Reaction Status Date / Time ciprofloxacin [From Cipro] Allergy Mild Hives Verified 11/25/16 05:51 ciprofloxacin HCl Allergy Mild Hives Verified 11/25/16 05:51 [From Cipro] acetic acid Allergy Rash/Hives Verified 11/25/16 05:51 [From [place] Vinegar and Water] egg Allergy Unknown Verified 11/25/16 05:51 tomato Allergy Rash/Hives Verified 11/25/16 05:51 methylprednisolone AdvReac Severe Abdominal Verified 11/25/16 05:51 [From Medrol] Pain Physical Exam Vitals: Vital Signs Temp Pulse Resp BP Pulse Ox 11/25/16 08:00 98.1 F 96 16 134/68 95 11/25/16 06:00 98.1 F 102 H 13 128/71 94 L 11/25/16 05:02 91 L 11/25/16 04:00 101 H 20 142/79 95 Intake and Output 11/24/16 11/25/16 11/25/16 22:59 06:59 14:59 Intake Total 120 120 Output Total 40 Balance 120 80 Intake: IV 120 20 Sodium Chloride 0.9% 1, 120 20 000 ml @ 20 mls/hr IV . Q24H [facility] Rx#:[id number] Intake, IV Titration 100 Amount Magnesium Sulfate-D5w Pmx 100 1 gm In Dextrose/Water 1 100ml.bag @ 100 mls/hr IVPB Q1H [facility] Rx#: [id number] Output: Urine 40 Other: # Voids 2 Weight 66.6 kg The patient appeared well nourished and normally developed. Vital signs as documented. Head exam is unremarkable. No scleral icterus or corneal arcus noted. Neck is without jugular venous distension, thyromegaly, or carotid bruits. Carotid upstrokes are brisk bilaterally. Lungs are clear to auscultation and percussion. Cardiac exam reveals the PMI to be normally sized and situated. Rhythm is regular. First and second heart sounds normal. No murmurs, rubs or gallops. Abdominal exam reveals normal bowel sounds, no masses , no organomegaly and no aortic enlargement. Extremities are nonedematous and both femoral and pedal pulses are normal. Results - Laboratory Findings CBC and BMP: 11/24/16 23:03 11/24/16 23:03 PT/INR, D-dimer PT 12.9 sec (9.0-12.0) H 11/24/16 23:03 INR 1.3 (<1.1) 11/24/16 23:03 Abnormal lab findings: Abnormal Labs 11/25/16 11/25/16 05:03 05:36 POC Glucose (mg/dL) 104 H Total Creatine Kinase 54 L Troponin I 0.147 H* - Diagnostic Findings CT scan - chest: image reviewed Assessment and Plan Plan: Assessment 1 large 4 x 3 cm mass located in the superior segment of the right lower lobe. This is a slowly enlarging mass that was originally seen on a PET CT that was done in 2014. This is very likely a lung cancer. 2 coronary artery disease with recent coronary intervention and stenting of the circumflex, please refer to the cardiac catheter ablation report from August 2016 3 acute non-ST segment elevation myocardial infarction/chest pain/epigastric pain 4 peripheral vascular disease with carotid artery involvement 5 COPD 6 hypertension 7 BPH 8 history of CVA with some residual right-sided weakness 9 difficult with mobility and gait 10 macular degeneration and the patient is legally blind 11 dementia 12 extremely poor performance and functional status secondary to above- mentioned comorbidities Plan I reviewed the CAT scan images. I compared to the earlier PET scan and I'm very much convinced that the patient has a right lung cancer. I do not think however there is a need for a tissue diagnosis at a biopsy specially the patient 's performance and functional status is extremely poor at this point. The patient has poor vision in addition secondary to macular degeneration. He is unable to walk. He is extremely weak. He would not be a good candidate for any further diagnostic or therapeutic interventions. Furthermore, the pain it was discovered that his chest is more likely an epigastric pain. I reviewed the cardiac catheterization that was done earlier 3 months ago and I do not think there is a need for any further intervention. May discontinue the IV heparin and cardiology is agreeable. Continue the supportive care. He is a selective overflow urine out ICU and we'll move him to selective once rooms that available.
[2016-11-25] MEDS: FERROUS SULFATE 325 MG TAB PO SCH (09:38)
[2016-11-25] MEDS: FAMOTIDINE 20 MG TAB PO SCH (09:38)
[2016-11-25] MEDS: FUROSEMIDE 20 MG TAB PO SCH (09:38)
[2016-11-25] MEDS: amLODIPine 5 MG TAB PO SCH (09:38)
[2016-11-25] MEDS: TAMSULOSIN 0.4 MG CAP.ER.24H PO SCH (09:39)
[2016-11-25 10:00] VITALS: BMI 21.0
[2016-11-25 10:57] LABS: Creatine Kinase <20 U/L (55-170)
[2016-11-25 11:05] LABS: Creatine Kinase MB 1.7 ng/mL (0.0-2.4)
[2016-11-25 11:09] LABS: Troponin I 0.113 ng/mL (0.000-0.034)
--- NOTE | 2016-11-25 12:20 | P.CRDCN ---
History of Present Illness Reason for Consult (text): Chest pain. History of present illness: This patient's electronic medical records a computed tomography scan results and the left SI reviewed. This patient was admitted with the symptoms of her acute chest pain. Patient has a history of for known coronary artery disease with a history of for this and the stent to the circumflex coronary artery. Patient's CAT scan is suggestive for possibly advanced lung cancer and patient currently is made no code. At present patient is comfortable. He's not having any chest pain. EKG does not show any acute ischemic changes. Troponins are borderline elevated. Past Medical History Past Medical History: Coronary Artery Disease (CAD), Heart Failure, COPD, CVA/ TIA, Diabetes Mellitus, Eye Disorder, Hypertension, Myocardial Infarction ([place]), Pneumonia, Prostate Disorder Additional Past Medical History / Comment(s): Coronary artery disease with recent coronary intervention and stenting of the circumflex, several TIAs, CVA involving the right side with some right lower extremity weakness and the patient is moving around with the help of a wheelchair and he has difficulties with gait, BPH, glaucoma, lung mass details discussed above, history of pancreatitis, macular degeneration and the patient is legally blind, BPH, hypertension Last Myocardial Infarction Date:: August 2016 History of Any Multi-Drug Resistant Organisms: None Reported Past Surgical History: Appendectomy, Cholecystectomy, Heart Catheterization With Stent Additional Past Surgical History / Comment(s): left carotid surgery cataract surgery, deviated septum sx, cataracts removed bilaterally with lens implants, PICC line/removed Past Anesthesia/Blood Transfusion Reactions: Unable to Obtain Additional Past Anesthesia/Blood Transfusion Reaction / Comment(s): no hx at [facility] Date of Last Stent Placement:: 03/2014 Past Psychological History: Anxiety Additional Psychological History / Comment(s): pt currently at [facility] Smoking Status: Never smoker Past Alcohol Use History: None Reported Additional Past Alcohol Use History / Comment(s): Pt states he started smoking at age 14 yrs and quit in 2009. He was mostly a pipe smoker and did smoke cigarettes the last few yrs that he smoked. Past Drug Use History: None Reported - Past Family History Mother Family Medical History: Unable to Obtain Additional Family Medical History / Comment(s): Mother at 94 yrs. Father Family Medical History: Myocardial Infarction ([place]) Additional Family Medical History / Comment(s): of [place] in his 60's Medications and Allergies Home Medications Medication Instructions Recorded Confirmed Type Tamsulosin HCl [Flomax] 0.4 mg PO DAILY 04/05/16 11/25/16 History Budesonide [Pulmicort] 0.5 mg INHALATION RT-BID PRN 09/27/16 11/25/16 History Atorvastatin [Lipitor] 40 mg PO HS 11/11/16 11/25/16 History Ferrous Sulfate [Feosol] 325 mg PO DAILY 11/11/16 11/25/16 History Ipratropium-Albuterol Nebulize 3 ml INHALATION RT-QID PRN 11/11/16 11/25/16 History [Duoneb 0.5 mg-3 mg/3 ml Soln] Aspirin EC [Ecotrin Low Dose] 81 mg PO HS 11/25/16 11/25/16 History Cholecalciferol (Vitamin D3) 1,000 units PO DAILY 11/25/16 11/25/16 History [Vitamin D] Furosemide [Lasix] 20 mg PO DAILY 11/25/16 11/25/16 History Metoprolol Tartrate [Metoprolol 12.5 mg PO BID 11/25/16 11/25/16 History Tartrate] Nitroglycerin [Nitroglycerin] 0.4 mg SUBLINGUAL Q5M PRN 11/25/16 11/25/16 History Ondansetron [Zofran ODT] 4 mg PO Q6H PRN 11/25/16 11/25/16 History Allergies Allergy/AdvReac Type Severity Reaction Status Date / Time ciprofloxacin [From Cipro] Allergy Mild Hives Verified 11/25/16 10:51 ciprofloxacin HCl Allergy Mild Hives Verified 11/25/16 10:51 [From Cipro] acetic acid Allergy Rash/Hives Verified 11/25/16 10:51 [From [place] Vinegar and Water] egg Allergy Unknown Verified 11/25/16 10:51 tomato Allergy Rash/Hives Verified 11/25/16 10:51 methylprednisolone AdvReac Severe Abdominal Verified 11/25/16 10:51 [From Medrol] Pain Physical Exam Vitals: Vital Signs Temp Pulse Resp BP Pulse Ox 11/25/16 12:00 98.3 F 83 20 120/72 96 11/25/16 11:55 16 11/25/16 08:00 98.1 F 96 16 134/68 95 11/25/16 06:00 98.1 F 102 H 13 128/71 94 L 11/25/16 05:02 91 L 11/25/16 04:00 101 H 20 142/79 95 Intake and Output 11/24/16 11/25/16 11/25/16 22:59 06:59 14:59 Intake Total 120 233.424 Output Total 80 Balance 120 153.424 Intake: IV 120 20 Sodium Chloride 0.9% 1, 120 20 000 ml @ 20 mls/hr IV . Q24H [facility] Rx#:[id number] Intake, IV Titration 213.424 Amount Heparin Sodium,Porcine/ 113.424 D5w Pmx 25,000 unit In Dextrose/Water 1 500ml. bag @ 12 UNITS/KG/HR 16. 32 mls/hr IV .Q24H [facility] Rx #:[id number] Magnesium Sulfate-D5w Pmx 100 1 gm In Dextrose/Water 1 100ml.bag @ 100 mls/hr IVPB Q1H [facility] Rx#: [id number] Output: Urine 80 Other: # Voids 2 Weight 66.6 kg 66.6 kg Patient Weight 11/26/16 06:59 Weight 66.6 kg Patient is comfortable not in any acute distress. Vital signs are reviewed. HEENT negative. Neck is supple there is no increase in jugular venous pressure. Heart. First and second heart sounds are normal. Lungs reveal a few scattered wheezes. Abdomen. Soft liver and spleen are not enlarged. Extremities there is no leg edema. Results 11/24/16 23:03 11/24/16 23:03 Cardiac Enzymes 11/25/16 11/25/16 Range/Units 05:36 10:19 CK-MB (CK-2) 1.8 1.7 (0.0-2.4) ng/mL Troponin I 0.147 H* 0.113 H* (0.000-0.034) ng/mL Coagulation 11/25/16 Range/Units 10:19 APTT 55.1 H (22.0-30.0) sec Current Medications Generic Name Dose Route Start Last Admin Trade Name Freq PRN Reason Stop Dose Admin Albuterol/Ipratropium 3 ml 11/25/16 03:26 Duoneb 0.5 Mg-3 Mg/3 Ml Soln INHALATION RT-Q4H PRN Shortness Of Breath Or Wheezing Alprazolam 0.25 mg 11/25/16 03:30 Xanax PO TID PRN Anxiety Amlodipine Besylate 5 mg 11/25/16 09:00 11/25/16 09:38 Norvasc PO 5 mg DAILY [facility] Administration Atorvastatin Calcium 40 mg 11/25/16 21:00 Lipitor PO HS [facility] Famotidine 20 mg 11/25/16 09:00 11/25/16 09:38 Pepcid PO 20 mg DAILY [facility] Administration Ferrous Sulfate 325 mg 11/25/16 09:00 11/25/16 09:38 Feosol PO 325 mg DAILY [facility] Administration Furosemide 20 mg 11/25/16 09:00 11/25/16 09:38 Lasix PO 20 mg DAILY [facility] Administration Hydromorphone HCl 1 mg 11/25/16 07:02 Dilaudid IVP Q3HR PRN Pain Sodium Chloride 1,000 mls @ 20 mls/hr 11/25/16 00:00 11/25/16 01:06 Saline 0.9% IV 100 mls/hr .Q24H [facility] Administration Ceftriaxone Sodium 1,000 mg/ 50 mls @ 100 mls/hr 11/25/16 23:00 Sodium Chloride IVPB HS [facility] Insulin Human Lispro 0 unit 11/25/16 12:30 Humalog SQ ACHS [facility] Protocol Miscellaneous Information 1 each 11/25/16 01:12 11/25/16 02:32 Rx Info: Iv Contrast Was Given MISCELLANE 11/27/16 01:12 1 each DAILY PRN Administration Per Protocol Miscellaneous Information 1 each 11/25/16 07:03 Magnesium Per Protocol MISCELLANE DAILY PRN Per Protocol Protocol Nitroglycerin 0.4 mg 11/25/16 03:22 Nitrostat SUBLINGUAL Q5M PRN Chest Pain Tamsulosin HCl 0.4 mg 11/25/16 09:00 11/25/16 09:39 Flomax PO 0.4 mg DAILY [facility] Administration Intake and Output 11/24/16 11/25/16 11/25/16 22:59 06:59 14:59 Intake Total 120 233.424 Output Total 80 Balance 120 153.424 Intake: IV 120 20 Sodium Chloride 0.9% 1, 120 20 000 ml @ 20 mls/hr IV . Q24H [facility] Rx#:[id number] Intake, IV Titration 213.424 Amount Heparin Sodium,Porcine/ 113.424 D5w Pmx 25,000 unit In Dextrose/Water 1 500ml. bag @ 12 UNITS/KG/HR 16. 32 mls/hr IV .Q24H [facility] Rx #:[id number] Magnesium Sulfate-D5w Pmx 100 1 gm In Dextrose/Water 1 100ml.bag @ 100 mls/hr IVPB Q1H [facility] Rx#: [id number] Output: Urine 80 Other: # Voids 2 Weight 66.6 kg 66.6 kg Patient Weight 11/26/16 06:59 Weight 66.6 kg Assessment and Plan Plan: This patient is admitted with chest pain EKG does not show any acute ischemic changes. There is only borderline elevation in the troponin. Patient's CAT scan is suggestive for lung cancer and patient is currently made no code we'll recommend to continue the patient on the medical treatment no further cardiac intervention is indicated at present.
[2016-11-25 12:30] LABS: Glucose,Whole Blood 143 mg/dL (75-99)
[2016-11-25] MEDS: INSULIN LISPRO (humaLOG) 300 UNIT/3 ML VIAL SQ SCH ×3 (12:37→20:42)
--- NOTE | 2016-11-25 13:41 | P.HPIM ---
History of Present Illness H&P Date: 11/25/16 Chief Complaint: Abdominal pain Patient is an 85-year-old male, patient of Dr. Dante Fraser in the outpatient setting with medical history significant for coronary artery disease , COPD, TIAs, CVA, early onset dementia, bilateral macular degeneration, hypertension, myocardial infarction with stent placements, pneumonia, BPH, hyperlipidemia, and gait dysfunction with history of falls. Patient was recently hospitalized in August when he presented with right cervical and right temporal pain suspect secondary to cervical strain and degenerative disc disease and non-Q-wave VT. Patient underwent cardiac catheterization and was found to have moderate disease in the LAD and critical lesion in the distal circumflex and total occlusion of the RCA with stent placement of the circumflex. Patient was discharged home in stable condition. Patient was again hospitalized from 10/17/2016 to 10/25/2016 with complaints of shortness of breath and cough. Patient was found to have sepsis suspect secondary to right basilar pneumonia, aspiration. 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 Speech pathology recommended soft mechanical diet. Patient was evaluated by cardiology service, who didn't feel patient's shortness of breath was evidence of acute congestive heart failure but rather underlying pneumonia. Patient was evaluated by Dr. Epstein for occipital neuritis and did receive bilateral occipital nerve block on this hospitalization. Blood cultures came back with polymicrobial bacteremia with alpha hemolytic streptococcus as well as gram-negative with question of possible pneumonia versus abdominal source. Patient was evaluated by Dr. Bridges from infectious disease service who recommended two weeks of IV Zosyn on discharge. Patient did receive a PICC line prior to discharge and was transferred to [facility] for subacute rehabilitation. Patient apparently was discharged home from acute rehab facility on 11/08/2016 and according to chart had been declining in health rapidly since then. is primary caregiver and was unable to take care of patient at home. Patient presented to the emergency department with complaints of increased chest pain and burning epigastric abdominal pain that have been ongoing for approximately 2 days. Per chart, patient had also become increasingly short of breath with a significant cough. Patient is a poor historian and most of history is taken from the chart. Patient did undergo a CT of the chest, abdomen and pelvis with evidence of a right lower lobe infrahilar mass measuring 4 x 3.5 cm in addition to a 6 mm nodule in the right lower lobe and a 2 mm nodule in the right apical part of the lung. No evidence of pulmonary embolism. According to previous PET scan done in 2015, patient did have some abnormalities in uptake within the same involved area and per discussion with Dr. Gonzalez the mass is most likely an evolving lung cancer. Chest x-ray with no acute changes from previous. Patient did have an elevated white count as well as an elevated lactic acid meeting criteria for SIRS without obvious source of infection. Patient did have elevated troponins and was admitted to intensive care unit as selective care overflow on IV heparin with consults to pulmonology and cardiology service. Upon examination, patient complains of posterior headache but has no further specific complaints. Denies nausea, vomiting, shortness of breath, chest pain, or abdominal pain. Past Medical History Past Medical History: Coronary Artery Disease (CAD), Heart Failure, COPD, CVA/ TIA, Diabetes Mellitus, Eye Disorder, Hypertension, Myocardial Infarction (VT), Pneumonia, Prostate Disorder Additional Past Medical History / Comment(s): Coronary artery disease with recent coronary intervention and stenting of the circumflex, several TIAs, CVA involving the right side with some right lower extremity weakness and the patient is moving around with the help of a wheelchair and he has difficulties with gait, BPH, glaucoma, lung mass details discussed above, history of pancreatitis, macular degeneration and the patient is legally blind, BPH, hypertension Last Myocardial Infarction Date:: August 2016 History of Any Multi-Drug Resistant Organisms: None Reported Past Surgical History: Appendectomy, Cholecystectomy, Heart Catheterization With Stent Additional Past Surgical History / Comment(s): left carotid surgery cataract surgery, deviated septum sx, cataracts removed bilaterally with lens implants, PICC line/removed Past Anesthesia/Blood Transfusion Reactions: Unable to Obtain Additional Past Anesthesia/Blood Transfusion Reaction / Comment(s): no hx at [facility] Date of Last Stent Placement:: 03/2014 Past Psychological History: Anxiety Additional Psychological History / Comment(s): pt currently at [facility] Smoking Status: Never smoker Past Alcohol Use History: None Reported Additional Past Alcohol Use History / Comment(s): Pt states he started smoking at age 14 yrs and quit in 2009. He was mostly a pipe smoker and did smoke cigarettes the last few yrs that he smoked. Past Drug Use History: None Reported - Past Family History Mother Family Medical History: Unable to Obtain Additional Family Medical History / Comment(s): Mother at 94 yrs. Father Family Medical History: Myocardial Infarction (VT) Additional Family Medical History / Comment(s): of VT in his 60's Medications and Allergies Home Medications Medication Instructions Recorded Confirmed Type Tamsulosin HCl [Flomax] 0.4 mg PO DAILY 04/05/16 11/25/16 History Budesonide [Pulmicort] 0.5 mg INHALATION RT-BID PRN 09/27/16 11/25/16 History Atorvastatin [Lipitor] 40 mg PO HS 11/11/16 11/25/16 History Ferrous Sulfate [Feosol] 325 mg PO DAILY 11/11/16 11/25/16 History Ipratropium-Albuterol Nebulize 3 ml INHALATION RT-QID PRN 11/11/16 11/25/16 History [Duoneb 0.5 mg-3 mg/3 ml Soln] Aspirin EC [Ecotrin Low Dose] 81 mg PO HS 11/25/16 11/25/16 History Cholecalciferol (Vitamin D3) 1,000 units PO DAILY 11/25/16 11/25/16 History [Vitamin D] Furosemide [Lasix] 20 mg PO DAILY 11/25/16 11/25/16 History Metoprolol Tartrate [Metoprolol 12.5 mg PO BID 11/25/16 11/25/16 History Tartrate] Nitroglycerin [Nitroglycerin] 0.4 mg SUBLINGUAL Q5M PRN 11/25/16 11/25/16 History Ondansetron [Zofran ODT] 4 mg PO Q6H PRN 11/25/16 11/25/16 History Allergies Allergy/AdvReac Type Severity Reaction Status Date / Time ciprofloxacin [From Cipro] Allergy Mild Hives Verified 11/25/16 10:51 ciprofloxacin HCl Allergy Mild Hives Verified 11/25/16 10:51 [From Cipro] acetic acid Allergy Rash/Hives Verified 11/25/16 10:51 [From [place] Vinegar and Water] egg Allergy Unknown Verified 11/25/16 10:51 tomato Allergy Rash/Hives Verified 11/25/16 10:51 methylprednisolone AdvReac Severe Abdominal Verified 11/25/16 10:51 [From Medrol] Pain Physical Exam Vitals: Vital Signs Temp Pulse Resp BP Pulse Ox 11/25/16 12:00 98.3 F 83 20 120/72 96 11/25/16 11:55 16 11/25/16 08:00 98.1 F 96 16 134/68 95 11/25/16 06:00 98.1 F 102 H 13 128/71 94 L 11/25/16 05:02 91 L 11/25/16 04:00 101 H 20 142/79 95 Intake and Output 11/24/16 11/25/16 11/25/16 22:59 06:59 14:59 Intake Total 120 253.424 Output Total 310 Balance 120 -56.576 Intake: IV 120 40 Sodium Chloride 0.9% 1, 120 40 000 ml @ 20 mls/hr IV . Q24H ASIM Rx#:[id number] Intake, IV Titration 213.424 Amount Heparin Sodium,Porcine/ 113.424 D5w Pmx 25,000 unit In Dextrose/Water 1 500ml. bag @ 12 UNITS/KG/HR 16. 32 mls/hr IV .Q24H ASIM Rx #:[id number] Magnesium Sulfate-D5w Pmx 100 1 gm In Dextrose/Water 1 100ml.bag @ 100 mls/hr IVPB Q1H ASIM Rx#: [id number] Output: Urine 310 Other: # Voids 2 Weight 66.6 kg 66.6 kg Patient Weight 11/26/16 06:59 Weight 66.6 kg GENERAL: Pt is awake and alert, well-nourished, appears in no acute distress. HEAD: Atraumatic, normocephalic. EYES: Pupils equal and round. ENT: Moist mucous membranes. NECK:Supple without lymphadenopathy or JVD. LUNGS: Breath sounds clear to auscultation. No wheezing, rhonchi, or rales. HEART: Heart S1, S2, no S3 or S4. Regular rate and rhythm. Systolic murmur. ABDOMEN: Soft, nontender, no distention, normoactive bowel sounds, no masses, no organomegaly. EXTREMITIES: 1+ peripheral pulses. No edema. No calf tenderness. NEUROLOGICAL: Pt oriented x 2. No focal deficits. Strength and sensation grossly intact. PSYCH: Calm. SKIN: Warm, dry. Results CBC & Chem 7: 11/24/16 23:03 11/24/16 23:03 Labs: Abnormal Lab Results - Last 24 Hours (Table) 0311/25/16 11/25/16 Range/Units 05:03 05:36 10:19 APTT (22.0-30.0) sec POC Glucose (mg/dL) 104 H (75-99) mg/dL Total Creatine Kinase 54 L <20 L (55-170) U/L Troponin I 0.147 H* 0.113 H* (0.000-0.034) ng/mL 11/25/16 Range/Units 10:19 APTT 55.1 H (22.0-30.0) sec POC Glucose (mg/dL) (75-99) mg/dL Total Creatine Kinase (55-170) U/L Troponin I (0.000-0.034) ng/mL Chest x-ray: report reviewed Abdominal x-ray: report reviewed CT scan - abdomen: report reviewed CT scan - chest: report reviewed CT scan - pelvis: report reviewed Thrombosis Risk Factor Assmnt - DVT/VTE Prophylaxis DVT/VTE Prophylaxis: Pharmacologic Prophylaxis ordered, Mechanical Prophylaxis ordered - Choose All That Apply Any of the Below Risk Factors Present?: Yes Each Factor Represents 1 point: Abnormal pulmonary function (COPD), Heart failure (<1month) Other Risk Factors: Yes Each Risk Factor Represents 3 Points: Age 75 years or older Other congenital or acquired thrombophilia - If yes, enter type in comment: No Thrombosis Risk Factor Assessment Total Risk Factor Score: 5 Thrombosis Risk Factor Assessment Level: High Risk Assessment and Plan Plan: Impression and plan: 1. Chest pain, present on admission, with elevated troponins suspect secondary to acute non-ST segment elevation myocardial infarction. Cardiology consult requested, recommendations pending. Patient continues on IV heparin. 2. 4 x 3.5 cm mass in superior segment right lower lobe, enlarging mass from previous PET scan done in 2014 suspect lung cancer. 3. SIRS with leukocytosis and elevated lactic acid, possible sepsis without a source of infection. Continue ceftriaxone, blood cultures pending. 4. Coronary artery disease with previous myocardial infarction and recent stent placement to circumflex in August 2016. 5. COPD. 5. Hypertension. 6. History of CVA and multiple TIAs. 7. 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 8. BPH. 9. Hyperlipidemia. 10. Dementia. 11. Anxiety. 12. Gait dysfunction. 13. History of falls. 14. History of nicotine dependence. 15. History of dysphagia. Speech consult in place. 16. Headache suspect secondary to bilateral occipital neuritis status post bilateral occipital nerve block procedure with anesthesia on 10/24/2016. 17. Medical debility. Continue to monitor patient. Continue current medications. Continue GI and DVT prophylaxis. Maintain fall precautions. Continue to follow with consultants. Did speak with and patient concerning lung mass and possibility of lung cancer. is agreeable to palliative/hospice consult. Patient is currently a DO NOT RESUSCITATE. The above impression and plan have been discussed and directed by Dr. Fraser. Judy PHAM acting as scribe for Dr. Fraser.
[2016-11-25] MEDS: ALPRAZolam 0.25 MG TAB PO PRN ×2 (14:29→22:36)
[2016-11-25 17:10] LABS: Glucose,Whole Blood 124 mg/dL (75-99)
[2016-11-25] MEDS: HYDROmorphone 1 MG/ML 1 ML SYRINGE IVP PRN (20:35)
[2016-11-25 20:43] LABS: Glucose,Whole Blood 195 mg/dL (75-99)
[2016-11-25] MEDS ORDERED: ATORVASTATIN 40 MG TAB PO SCH (21:00)
[2016-11-26] MEDS: SODIUM CHLORIDE 0.9% 1,000 ML IV SCH (00:56)
[2016-11-26] MEDS: HYDROmorphone 1 MG/ML 1 ML SYRINGE IVP PRN ×4 (02:00→14:03)
[2016-11-26 05:05] LABS: Anisocytosis Slight; CH 27.3; CHCM 31.4; HCT 25.7 % (39.0-53.0); HDW 3.24; Hypochromasia Moderate; MCH 27.5 pg (25.0-35.0); MCHC 31.4 g/dL (31.0-37.0); MCV 87.4 fL (80.0-100.0); Mean Platelet Volume 8.3; RBC 2.94 m/uL (4.30-5.90); RDW 17.3 % (11.5-15.5); WBC (Perox) 36.26
[2016-11-26 05:42] LABS: Anion Gap 10 mmol/L; Blood Urea Nitrogen 33 mg/dL (9-20); Calcium 8.8 mg/dL (8.4-10.2); Carbon Dioxide 25 mmol/L (22-30); Chloride 104 mmol/L (98-107); Cholesterol 115 mg/dL (<200); Glucose 121 mg/dL (74-99); HDL Cholesterol 39 mg/dL (40-60); Magnesium 2.3 mg/dL (1.6-2.3); Non-African American GFR(MDRD) >60 (>60 ml/min/1.73 sqM); Sodium 139 mmol/L (137-145); Triglycerides 96 mg/dL (<150)
[2016-11-26 05:52] LABS: HGB 8.1 gm/dL (13.0-17.5)
[2016-11-26 05:53] LABS: Add Differential Manual Differential
[2016-11-26 05:57] LABS: Band Neutrophils % 10.5 %; Nucleated Red Blood Cells 1 /100 WBC (0-0); Total Cells Counted 200; WBC 32.7 k/uL (3.8-10.6)
[2016-11-26 05:59] LABS: Target Cells Present
[2016-11-26 06:04] LABS: Polychromasia Present
[2016-11-26 07:37] LABS: Glucose,Whole Blood 131 mg/dL (75-99)
[2016-11-26] MEDS: INSULIN LISPRO (humaLOG) 300 UNIT/3 ML VIAL SQ SCH ×2 (07:59→12:48)
[2016-11-26] MEDS: FUROSEMIDE 20 MG TAB PO SCH (08:00)
[2016-11-26] MEDS: amLODIPine 5 MG TAB PO SCH (08:00)
[2016-11-26] MEDS: FERROUS SULFATE 325 MG TAB PO SCH (08:00)
[2016-11-26] MEDS: FAMOTIDINE 20 MG TAB PO SCH (08:00)
[2016-11-26] MEDS: TAMSULOSIN 0.4 MG CAP.ER.24H PO SCH (08:01)
[2016-11-26] MEDS: ALPRAZolam 0.25 MG TAB PO PRN (08:19)
[2016-11-26] MEDS ORDERED: ONDANSETRON 4 MG/2 ML VIAL ONE (09:05)
[2016-11-26] MEDS ORDERED: ONDANSETRON 4 MG/2 ML VIAL IVP PRN (09:06)
[2016-11-26 12:06] LABS: Glucose,Whole Blood 112 mg/dL (75-99)
[2016-11-26 12:50] VITALS: TEMP 97.8
--- NOTE | 2016-11-26 13:33 | P.DS ---
Providers Date of admission: 11/25/16 03:56 Expected date of discharge: 11/26/16 Attending physician: Dante Fraser Consults: Cardiology service, pulmonary service Primary care physician: Dante Fraser Hospital Course: Patient is an 85-year-old male, patient of Dr. Dante Fraser in the outpatient setting with medical history significant for coronary artery disease , COPD, TIAs, CVA, early onset dementia, bilateral macular degeneration, hypertension, myocardial infarction with stent placements, pneumonia, BPH, hyperlipidemia, and gait dysfunction with history of falls. Patient was recently hospitalized in August when he presented with right cervical and right temporal pain suspect secondary to cervical strain and degenerative disc disease and non-Q-wave CO. Patient underwent cardiac catheterization and was found to have moderate disease in the LAD and critical lesion in the distal circumflex and total occlusion of the RCA with stent placement of the circumflex. Patient was discharged home in stable condition. Patient was again hospitalized from 10/17/2016 to 10/25/2016 with complaints of shortness of breath and cough. Patient was found to have sepsis suspect secondary to right basilar pneumonia, aspiration. 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 Speech pathology recommended soft mechanical diet. Patient was evaluated by cardiology service, who didn't feel patient's shortness of breath was evidence of acute congestive heart failure but rather underlying pneumonia. Patient was evaluated by Dr. Epstein for occipital neuritis and did receive bilateral occipital nerve block on this hospitalization. Blood cultures came back with polymicrobial bacteremia with alpha hemolytic streptococcus as well as gram-negative with question of possible pneumonia versus abdominal source. Patient was evaluated by Dr. Bridges from infectious disease service who recommended two weeks of IV Zosyn on discharge. Patient did receive a PICC line prior to discharge and was transferred to [facility] for subacute rehabilitation. Patient apparently was discharged home from acute rehab facility on 11/08/2016 and according to chart had been declining in health rapidly since then. is primary caregiver and was unable to take care of patient at home. Patient presented to the emergency department with complaints of increased chest pain and burning epigastric abdominal pain that have been ongoing for approximately 2 days. Per chart, patient had also become increasingly short of breath with a significant cough. Patient is a poor historian and most of history is taken from the chart. Patient did undergo a CT of the chest, abdomen and pelvis with evidence of a right lower lobe infrahilar mass measuring 4 x 3.5 cm in addition to a 6 mm nodule in the right lower lobe and a 2 mm nodule in the right apical part of the lung. No evidence of pulmonary embolism. According to previous PET scan done in 2015, patient did have some abnormalities in uptake within the same involved area and per discussion with Dr. Gonzalez the mass is most likely an evolving lung cancer. Chest x-ray with no acute changes from previous. Patient did have an elevated white count as well as an elevated lactic acid meeting criteria for SIRS without obvious source of infection. Patient did have elevated troponins with no evidence of ischemic changes on EKG. Patient was admitted to the cardiac unit on IV heparin with consults to pulmonology and cardiology service. Per 's wishes, patient was made a no code and consult was requested for hospice care. Discharge plans were implemented to discharge patient home with hospice per family request. Discharge diagnoses: 1. Chest pain, present on admission, with elevated troponins suspect secondary to acute non-ST segment elevation myocardial infarction. 2. 4 x 3.5 cm mass in superior segment right lower lobe, enlarging mass from previous PET scan done in 2015 suspect lung cancer. 3. SIRS with leukocytosis and elevated lactic acid, possible sepsis without a source of infection. 4. Coronary artery disease with previous myocardial infarction and recent stent placement to circumflex in August 2016. 5. COPD. 5. Hypertension. 6. History of CVA and multiple TIAs. 7. 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 8. BPH. 9. Hyperlipidemia. 10. Dementia. 11. Anxiety. 12. Gait dysfunction. 13. History of falls. 14. History of nicotine dependence. 15. History of dysphagia. 16. Headache suspect secondary to bilateral occipital neuritis status post bilateral occipital nerve block procedure with anesthesia on 10/24/2016. 17. Medical debility. The above impression and plan have been discussed and directed by Dr. Fraser. Judy PHAM acting as scribe for Dr. Fraser. Pertinent Studies: EKG; abdomen x-ray; KUB x-ray; chest x-ray; abdomen/pelvis CT; chest CTA Patient Condition at Discharge: Stable Plan - Discharge Summary New Discharge Prescriptions: Atropine Ophth Soln 1% 5Ml [Isopto Atropine 1% 5Ml] 2 drops SL Q4H PRN #1 bottle PRN Reason: Secretions HYDROcodone/APAP 7.5-325MG [Amoret 7.5-325] 1 tab PO Q4H PRN #42 tab PRN Reason: Pain LORazepam ORAL CONC [Ativan Intensol] 1 - 2 mg PO Q3H PRN #30 ml PRN Reason: Anxiety Morphine Oral Soln [Roxanol Oral Soln Conc 20MG/ML] 5 mg PO Q4H PRN #30 ml PRN Reason: Pain Discharge Medication List Tamsulosin HCl [Flomax] 0.4 mg PO DAILY 04/05/16 [History] amLODIPine [Norvasc] 5 mg PO DAILY #90 tab 08/31/16 [Rx] Budesonide [Pulmicort] 0.5 mg INHALATION RT-BID PRN 09/27/16 [History] Ipratropium-Albuterol Nebulize [Duoneb 0.5 mg-3 mg/3 ml Soln] 3 ml INHALATION RT -QID PRN 11/11/16 [History] Atropine Ophth Soln 1% 5Ml [Isopto Atropine 1% 5Ml] 2 drops SL Q4H PRN #1 bottle 11/26/16 [Rx] Furosemide [Lasix] 20 mg PO DAILY #0 tab 11/26/16 [Rx] HYDROcodone/APAP 7.5-325MG [Amoret 7.5-325] 1 tab PO Q4H PRN #42 tab 11/26/16 [Rx ] LORazepam ORAL CONC [Ativan Intensol] 1 - 2 mg PO Q3H PRN #30 ml 11/26/16 [Rx] Morphine Oral Soln [Roxanol Oral Soln Conc 20MG/ML] 5 mg PO Q4H PRN #30 ml 11/26 [Rx] Follow up Appointment(s)/Referral(s): Dante Fraser DO [Primary Care Provider] - As Needed Activity/Diet/Wound Care/Special Instructions: [facility] [phone] Discharge Disposition: HOME WITH HOSPICE
[2016-11-26 13:42] VITALS: BP 140/59; PULSE 90; RESP 24
--- NOTE | 2016-11-26 15:19 | P.PN ---
Subjective This is a 85-year-old male patient with known history of coronary artery disease who presented to the hospital because of an acute chest pain. The patient was in the hospital for the same around August 2016 and back then he had a coronary angiogram that was done by Dr. Rojas that showed a 50% stenosis proximally at the site of the previous stent and beyond the stenosis there was minimal disease in addition to a 80-90% stenosis within the circumflex and the bridge collaterals to the right coronary artery from the left. Based on this, the patient underwent a intervention with stenting of the distal circumflex without any complication and he was discharged home. He went to rehab and following that he went home to be readmitted for chest pain and he was diagnosed having an acute non-ST segment elevation myocardial infarction. His EKG showed sinus tachycardia with occasional premature ventricular beats otherwise the rest of the EKG was essentially within normal limits. His troponin peaked at 0.147. The patient's echocardiogram from August 2016 showed a preserved LV function with an ejection fraction of 55-60%. He also had a right ventricular systolic pressure of 44 mmHg. No significant valvular abnormalities. The patient borderline concentric left ventricular hypertrophy. The patient during this current admission had a CT angios the chest that showed a 4 x 3.5 cm mass in the superior segment of the right lower lobe in addition to a 6 mm nodule in the right lower lobe and a 2 mm nodule in the right apical part of the lung. The patient had no evidence of pulmonary embolism. Going back to a previous PET scan that was done in 2014, there was a suggestion of some abnormalities and uptake within the same involved area and as such this is most likely an evolving lung cancer. Patient has no shortness of breath. No hemoptysis at this point. No fever. No chills. No swelling in lower extremities. He is awake and alert. His health in general has been declining over this past several months. The patient is seen and evaluated again today 11/26/2016 in follow-up. The patient has continued to have ongoing pain and generalized discomfort. His prognosis remains quite poor and we had discussions with the patient's is at the bedside. She is aware that the enlarging lung mass is most likely cancer in his overall prognosis remains quite poor based on his multiple comorbidities. She is requesting the patient be discharged home with hospice care. Objective - Vital Signs Vital signs: Vital Signs Temp 97.8 F 11/26/16 12:00 Pulse 90 11/26/16 13:00 Resp 24 11/26/16 13:00 BP 140/59 11/26/16 13:00 Pulse Ox 94 L 11/26/16 13:00 Intake & Output 11/25/16 11/26/16 11/26/16 18:59 06:59 18:59 Intake Total 413.424 140 120 Output Total 535 700 Balance -121.576 140 -580 Weight 66.6 kg 64.3 kg Intake: IV 200 140 20 Sodium Chloride 0.9% 1, 200 140 20 000 ml @ 20 mls/hr IV . Q24H [facility]IM Rx#:[id number] Intake, IV Titration 213.424 Amount Heparin Sodium,Porcine/ 113.424 D5w Pmx 25,000 unit In Dextrose/Water 1 500ml. bag @ 12 UNITS/KG/HR 16. 32 mls/hr IV .Q24H [facility]IM Rx #:[id number] Magnesium Sulfate-D5w Pmx 100 1 gm In Dextrose/Water 1 100ml.bag @ 100 mls/hr IVPB Q1H ASIM Rx#: [id number] Oral 100 Output: Urine 535 700 Other: # Voids 1 - Exam The patient appears quite cachectic and weak. Vital signs as documented. Head exam is unremarkable. No scleral icterus or corneal arcus noted. Neck is without jugular venous distension, thyromegaly, or carotid bruits. Carotid upstrokes are brisk bilaterally. Lungs are clear to auscultation and percussion. Cardiac exam reveals the PMI to be normally sized and situated. Rhythm is regular. First and second heart sounds normal. No murmurs, rubs or gallops. Abdominal exam reveals normal bowel sounds, no masses, no organomegaly and no aortic enlargement. Extremities are nonedematous and both femoral and pedal pulses are normal. - Labs CBC & Chem 7: 11/26/16 04:26 11/26/16 04:26 Labs: Abnormal Lab Results - Last 24 Hours (Table) 11/25/16 11/25/16 11/26/16 Range/Units 17:07 20:41 04:26 WBC (3.8-10.6) k/uL RBC (4.30-5.90) m/uL Hgb (13.0-17.5) gm/dL Hct (39.0-53.0) % RDW (11.5-15.5) % Neutrophils # (Manual) (1.3-7.7) k/uL Nucleated RBCs (0-0) /100 WBC BUN 33 H (9-20) mg/dL Glucose 121 H (74-99) mg/dL POC Glucose (mg/dL) 124 H 195 H (75-99) mg/dL HDL Cholesterol 39 L (40-60) mg/dL 11/26/16 11/26/16 11/26/16 Range/Units 04:26 07:35 12:03 WBC 32.7 H* (3.8-10.6) k/uL RBC 2.94 L (4.30-5.90) m/uL Hgb 8.1 L D (13.0-17.5) gm/dL Hct 25.7 L (39.0-53.0) % RDW 17.3 H (11.5-15.5) % Neutrophils # (Manual) 30.4 H (1.3-7.7) k/uL Nucleated RBCs 1 H (0-0) /100 WBC BUN (9-20) mg/dL Glucose (74-99) mg/dL POC Glucose (mg/dL) 131 H 112 H (75-99) mg/dL HDL Cholesterol (40-60) mg/dL Assessment and Plan Plan: Assessment 1 large 4 x 3 cm mass located in the superior segment of the right lower lobe. This is a slowly enlarging mass that was originally seen on a PET CT that was done in 2014. This is very likely a lung cancer. 2 coronary artery disease with recent coronary intervention and stenting of the circumflex, please refer to the cardiac catheter ablation report from August 2016 3 acute non-ST segment elevation myocardial infarction/chest pain/epigastric pain 4 peripheral vascular disease with carotid artery involvement 5 COPD 6 hypertension 7 BPH 8 history of CVA with some residual right-sided weakness 9 difficult with mobility and gait 10 macular degeneration and the patient is legally blind 11 dementia 12 extremely poor performance and functional status secondary to above- mentioned comorbidities Plan The patient was seen and evaluated by Dr. Gonzalez. Again, he had a discussion with the patient's who is at the bedside that he is quite suspicious the patient has a right lung cancer which is evolving. Patient's overall functional status is extremely poor and not likely he would tolerate any diagnostic or therapeutic interventions. She has requested to take him home with hospice and comfort care. Arrangements are being made. We will see the patient on an as-needed basis.
[2016-11-26] MEDS ORDERED: HEPARIN SODIUM,PORCINE 5,000 UNIT/ML 1 ML VIAL SQ SCH (16:00)
== END 2016-11-26 14:42 | disposition hospice, home (50) | DRG 280 ==
LOC: EC 21:22 → 6ICU 11-25 03:56
PROVIDERS: ADMIT Family Medicine; ATTEND Family Medicine
DX: I21.4 Non-ST elevation (NSTEMI) myocardial infarction (principal); A41.9 Sepsis, unspecified organism; R64 Cachexia; E11.51 Type 2 diabetes mellitus with diabetic peripheral angiopathy without gangrene; I25.82 Chronic total occlusion of coronary artery; I11.0 Hypertensive heart disease with heart failure; I50.9 Heart failure, unspecified; C34.31 Malignant neoplasm of lower lobe, right bronchus or lung; F03.90 Unspecified dementia, unspecified severity, without behavioral disturbance, psychotic disturbance, mood disturbance, and anxiety; J44.9 Chronic obstructive pulmonary disease, unspecified; I69.351 Hemiplegia and hemiparesis following cerebral infarction affecting right dominant side; R13.10 Dysphagia, unspecified; Z66 Do not resuscitate; Z51.5 Encounter for palliative care; M79.2 Neuralgia and neuritis, unspecified; K22.8 Other specified diseases of esophagus; K22.5 Diverticulum of esophagus, acquired; I25.10 Atherosclerotic heart disease of native coronary artery without angina pectoris; I49.3 Ventricular premature depolarization; K57.30 Diverticulosis of large intestine without perforation or abscess without bleeding; I25.2 Old myocardial infarction; K76.89 Other specified diseases of liver; M50.30 Other cervical disc degeneration, unspecified cervical region; R00.0 Tachycardia, unspecified; E78.5 Hyperlipidemia, unspecified; H54.8 Legal blindness, as defined in USA; N40.0 Benign prostatic hyperplasia without lower urinary tract symptoms; H35.30 Unspecified macular degeneration; F41.9 Anxiety disorder, unspecified; R26.9 Unspecified abnormalities of gait and mobility; R29.6 Repeated falls; H40.9 Unspecified glaucoma; Z91.81 History of falling; Z82.49 Family history of ischemic heart disease and other diseases of the circulatory system; Z79.82 Long term (current) use of aspirin; Z79.899 Other long term (current) drug therapy; Z96.1 Presence of intraocular lens; Z86.79 Personal history of other diseases of the circulatory system; Z87.01 Personal history of pneumonia (recurrent); Z87.19 Personal history of other diseases of the digestive system; Z88.1 Allergy status to other antibiotic agents; Z91.012 Allergy to eggs; Z88.8 Allergy status to other drugs, medicaments and biological substances; Z91.018 Allergy to other foods; Z98.42 Cataract extraction status, left eye; Z98.41 Cataract extraction status, right eye; Z90.49 Acquired absence of other specified parts of digestive tract; Z95.5 Presence of coronary angioplasty implant and graft; Z87.891 Personal history of nicotine dependence; Z68.20 Body mass index [BMI] 20.0-20.9, adult; Z79.51 Long term (current) use of inhaled steroids
CPT/HCPCS: 36415; 71020; 71275; 74020; 74177; 80048; 80053; 80061; 81001; 82150; 82550; 82553; 83605; 83690; 83735; 83880; 84484; 85025; 85610; 85730; 87040; 87502; 93005; 96361; 96365; 96375; 96376; 99285